=== PATIENT | male | born 1940 | race Caucasian/White ===

== ENCOUNTER 2023-05-22 02:53 | Inpatient (IN) | payer OTHER, SELFPAY ==
[2023-05-21 20:23] LABS: % Basophils 0.4 % (0-2); % Eosinophils 0.4 % (0-6); % Immature Granulocytes 0.3 % (0-0.5); % Lymphocytes 11.8 % (20.5-51.1); % Monocytes 7.9 % (1.7-9.3); % Neutrophils 79.2 % (42.2-75.2); Absolute Lymphocytes 1.1 10^3/uL (1.2-3.4); Absolute Monocytes 0.7 10^3/uL (0.1-0.6); Absolute Neutrophils 7.1 10^3/uL (1.4-6.5); Hematocrit 45.9 % (39.0-52.0); Hemoglobin 15.7 g/dL (13.0-18.0); Mean Corp Hgb Conc. 34.2 g/dL (33.0-37.0); Mean Corpuscular Hgb 31.9 pg (27.0-31.0); Mean Corpuscular Volume 93.3 fL (80.0-94.0); Mean Platelet Volume 9.8 fL (7.4-10.4); Nucleated Red Blood Cells % 0 % (-); Platelet Count 201 10^3/uL (130-400); Red Blood Cell Count 4.92 10^6/uL (4.70-6.10); Red Cell Dist. Width 13.6 % (11.5-14.5)
[2023-05-21 20:49] LABS: ALT (SGPT) 23 U/L (0-50); AST (SGOT) 39 U/L (17-59); Albumin 4.3 g/dl (3.5-5.0); Alkaline Phosphatase 93 U/L (38-126); Blood Urea Nitrogen 31 mg/dl (9-20); Calcium 9.2 mg/dl (8.4-10.2); Carbon Dioxide 26 mmol/L (22-30); Chloride 105 mmol/L (98-107); Glucose 136 mg/dl (70-99); Lipase 81 U/L (23-300); Potassium 3.9 mmol/L (3.5-5.1); Sodium 136 mmol/L (135-145); Total Bilirubin 1.2 mg/dl (0.2-1.3); Total Protein 7.5 g/dl (6.3-8.2); eGFR > 60.00
--- NOTE | 2023-05-21 22:32 | ED.GENMED ---
History of Present Illness
<TESFAYE Celaya - Last Filed: 05/22/23 00:03>
General
Chief Complaint: Abdominal Pain
Source: patient and family
Exam Limitations: none
Time Seen by Provider: 05/21/23 22:01
Nursing documentation reviewed up to this point in time: agreed with
Travel History
Have you had any contact with someone who has COVID-19?: No
Do you have any symptoms of coronavirus? Fever > 100 degrees, chills, cough, shortness of breath, sore throat, loss of taste or smell, muscle aches, or headache?: No
History of Present Illness
History of Present Illness:
This is an 82 year old male, with a history of CVA and SCC of the tongue, who presents to the ED c/o lower abdominal pain x 1 day. Pt states the pain started last night and has been worsening since. It is a constant, sharp pain mostly localized to
his lower abdomen. Pt states he drank Senna tea around 8 am this morning because he thought he was constipated, but he has not had a bowel movement yet. Pt states his last BM was yesterday morning and he described the stool as soft. He denies a
history of recurrent constipation. Pt also states he has had increasing nausea and he has had one episode of nonbloody emesis in the waiting room. He adds that his pain is starting to make him anxious. He denies any fever, chills, ENG,
lightheadedness, dizziness, CP, SOB, leg swelling, dysuria, or blood in his stool.
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 He denies any tobacco, alcohol, or drug use. He denies any abdominal surgeries or history of hernias.
Past History
<TESFAYE Celaya - Last Filed: 05/22/23 00:03>
Past History
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
ED Past Surgical History: Other (broken arm, tongue)
Patient has exhibited threatening behavior?: No
Social History
Tobacco: Non-smoker
Alcohol: None
Drug: None
Review of Systems
<Michaelmic TESFAYE Lynn - Last Filed: 05/22/23 00:03>
Review of Systems
Allergies reviewed?: Yes
Other source history: family
All Other Systems: ROS reviewed and negative except as documented in HPI and ROS
Constitutional: Reports no symptoms; Denies fever or chills
EENT: Reports no symptoms
Respiratory: Reports no symptoms; Denies trouble breathing
Cardiac: Reports no symptoms; Denies chest pain
ABD/GI: Reports abdominal pain, nausea, vomiting and constipated; Denies diarrhea or bloody stools
: Reports frequency; Denies dysuria
Musculoskeletal: Reports no symptoms; Denies edema
Skin: Reports no symptoms
Neurological: Reports no symptoms; Denies dizzy or headache
Psychiatric: Reports anxiety
Phy Exam
<TESFAYE Celaya - Last Filed: 05/22/23 00:03>
General Physical Exam
General Presentation: mild distress
General age: appears stated age
General Skin: warm and dry
General Habitus: elderly and frail
General Mental: alert
General Hydration: appears well hydrated
ENT Exam
ENT Exam: pharynx normal and normocephalic
Eye Exam
Eye Exam: PERRL and conjunctiva normal
Cardiovascular Exam
Cardiovascular Exam: regular rate/rhythm, no edema and no murmur
Heart Sounds: normal
Pulmonary Exam
Pulmonary Exam: lungs clear, no respiratory distress, no rales, no crackles, no rhonchi, no wheezing and no cough
Oxygen Status: room air
Cough: no cough
Gastrointestinal Exam
Gastrointestinal Exam: abnormal bowel sounds (hypoactive), distended and tender (mild mid to lower abdominal tenderness)
Auscultation of Abdomen: hypoactive
Neurological Exam
Neurological Exam: alert and oriented x3
Musculoskeletal Exam
Musculoskeletal Exam: full ROM and no edema
Skin Exam
Skin Exam: normal color and warm/dry
Psychiatric Exam
Psychiatric Exam: normal mood/affect
Course
<TESFAYE Celaya - Last Filed: 05/22/23 00:03>
Orders/Labs/Results
Orders:
Orders
05/21/23 20:01
IV Insert/Care/Rem.- Treatment PRN
05/21/23 20:16
Complete Blood Count/With Diff Urgent
Comprehensive Metabolic Panel Urgent
Lipase Urgent
05/21/23 22:57
Morphine Sulfate 4 mg IV NOW STA
Ondansetron Injectable [Zofran] 4 mg IV NOW STA
05/21/23 23:00
Urinalysis Reflex To Culture Urgent
Date Specimen was Collected: 05/21/23
Time Specimen was Collected: 20:01
05/22/23 00:00
CT Abd/pelvis W Iv Cont Stat
Reason For Exam: lower abd pain, distention
05/22/23 01:12
HYDROmorphone [Dilaudid] 0.5 mg .ROUTE .STK-MED ONE
05/22/23 01:16
Lactic Acid Stat
Urine Microscopic Reflex Cult Urgent
05/22/23 01:19
HYDROmorphone [Dilaudid] 0.5 mg IV NOW STA
05/22/23 01:39
Admit/Transfer Patient As Directed
Co-Sign Provider:
Level of Care: Inpatient admission
Assign to:: Medical/Surgical
Physician / Group: htay
Diagnosis: Acute sigmoid volvulus
Reason for Hospitalization: Acute sigmoid volvulus
Expected length of stay greater than two midnights?: Yes
ELOS- Estimated Length of Stay in days: 3
I certify the patient meets the requirements for IP care: Yes
05/22/23 01:40
Code Status As Directed
Resuscitation Status: Full Code
Abnormal Lab Results
05/21/23 05/22/23
20:16 01:16
MCH 31.9 H pg
(27.0-31.0)
Absolute Neuts (auto) 7.1 H 10^3/uL
(1.4-6.5)
Absolute Lymphs (auto) 1.1 L 10^3/uL
(1.2-3.4)
Absolute Monos (auto) 0.7 H 10^3/uL
(0.1-0.6)
Neutrophils % 79.2 H %
(42.2-75.2)
Lymphocytes % 11.8 L %
(20.5-51.1)
BUN 31 H mg/dl
(9-20)
Glucose 136 H mg/dl
(70-99)
Urine Ketones 2+ A
(Negative)
Ur Occult Blood Reflex 1+ A
(Negative)
Urine RBC 11-15 A /HPF
(0-2)
Urine Bacteria (Reflex) Few A
(Negative)
05/21/23 20:16
05/21/23 20:16
Vital Signs
Initial and Last Documented VS:
Initial Vital Signs
Temp Pulse Resp Pulse Ox
98.6 F 81 18 98
05/21/23 19:58 05/21/23 19:58 05/21/23 19:58 05/21/23 19:58
Last Documented Vital Signs
Temp Pulse Resp BP Pulse Ox
98.6 F 82 16 151/84 92
05/21/23 19:58 05/21/23 23:18 05/21/23 23:18 05/22/23 02:00 05/22/23 02:00
<Gray Rosas, DO - Last Filed: 05/22/23 02:04>
Orders/Labs/Results
Orders:
Orders
05/21/23 20:01
IV Insert/Care/Rem.- Treatment PRN
05/21/23 20:16
Complete Blood Count/With Diff Urgent
Comprehensive Metabolic Panel Urgent
Lipase Urgent
05/21/23 22:57
Morphine Sulfate 4 mg IV NOW STA
Ondansetron Injectable [Zofran] 4 mg IV NOW STA
05/21/23 23:00
Urinalysis Reflex To Culture Urgent
Date Specimen was Collected: 05/21/23
Time Specimen was Collected: 20:01
05/22/23 00:00
CT Abd/pelvis W Iv Cont Stat
Reason For Exam: lower abd pain, distention
05/22/23 01:12
HYDROmorphone [Dilaudid] 0.5 mg .ROUTE .STK-MED ONE
05/22/23 01:16
Lactic Acid Stat
Urine Microscopic Reflex Cult Urgent
05/22/23 01:19
HYDROmorphone [Dilaudid] 0.5 mg IV NOW STA
05/22/23 01:39
Admit/Transfer Patient As Directed
Co-Sign Provider:
Level of Care: Inpatient admission
Assign to:: Medical/Surgical
Physician / Group: htay
Diagnosis: Acute sigmoid volvulus
Reason for Hospitalization: Acute sigmoid volvulus
Expected length of stay greater than two midnights?: Yes
ELOS- Estimated Length of Stay in days: 3
I certify the patient meets the requirements for IP care: Yes
05/22/23 01:40
Code Status As Directed
Resuscitation Status: Full Code
Abnormal Lab Results
05/21/23 05/22/23
01:16
MCH 31.9 H pg
(27.0-31.0)
Absolute Neuts (auto) 7.1 H 10^3/uL
(1.4-6.5)
Absolute Lymphs (auto) 1.1 L 10^3/uL
(1.2-3.4)
Absolute Monos (auto) 0.7 H 10^3/uL
(0.1-0.6)
Neutrophils % 79.2 H %
(42.2-75.2)
Lymphocytes % 11.8 L %
(20.5-51.1)
BUN 31 H mg/dl
(9-20)
Glucose 136 H mg/dl
(70-99)
Urine Ketones 2+ A
(Negative)
Ur Occult Blood Reflex 1+ A
(Negative)
Urine RBC 11-15 A /HPF
(0-2)
Urine Bacteria (Reflex) Few A
(Negative)
05/21/23 20:16
05/21/23 20:16
Vital Signs
Initial and Last Documented VS:
Initial Vital Signs
Temp Pulse Resp Pulse Ox
98.6 F 81 18 98
05/21/23 19:58 05/21/23 19:58 05/21/23 19:58 05/21/23 19:58
Last Documented Vital Signs
Temp Pulse Resp BP Pulse Ox
98.6 F 82 16 151/84 92
05/21/23 19:58 05/21/23 23:18 05/21/23 23:18 05/22/23 02:00 05/22/23 02:00
<Gray Rosas, - Last Filed: 05/22/23 02:04>
MDM/Problems Addressed
Differential Diagnosis Includes:
AAA, colitis, ischemic colitis, diverticulitis, SBO, uti, constipation, large bowel obstruction
MDM/Problems Addressed:
Sigmoid volvulus
<Gray Rosas DO - Last Filed: 05/22/23 02:04>
*Radiology
Radiology exam reviewed: preliminary read by ED provider (Suspected volvulus, free fluid noted)
*Pulse Oximetry
Patient hypoxic: no
*Critical Care Note
Total Time (30-74mins, 75-104mins- exclusive of procedures): 60 minutes
Data Reviewed
Source: patient and family
Prescriptions/Medications Considered But Not Given:
Considered antibiotics but volvulus noted by CT
<Gray Rosas DO - Last Filed: 05/22/23 02:04>
Patient Management
Discussion with other providers: Hospitalist, Water Pollution Control Technician (Case discussed with Dr. Ceron), Radiologist (Case discussed with radiologist) and Other (Case discussed with gastroenterology)
Escalation/DeEscalation of care consider admission/obs:
Discussed with surgery who recommends endoscopic detorsion by gastroenterology. GI to take to lab. Patient does remain hemodynamically stable.
ED Attending Note
<TESFAYE Celaya - Last Filed: 05/22/23 00:03>
-
Portions of this chart may have been created with voice recognition software.� Occasional wrong word or��sound alike� substitutions may have occurred due to the inherent limitations of voice recognition software.
<Gray Rosas DO - Last Filed: 05/22/23 02:04>
ED Attending Note
Patient seen and examined by attending physician: Yes
I performed a history and physical exam of patient and discussed management with resident, I reviewed resident's note and agree with documented findings and plan of care.: Yes
ED Attending Note:
I performed a history and physical of the patient discussed management with the JAVAD student. I reviewed the student's note and agree with above.
82-year-old male who presents with abdominal pain and distention that began the night before presentation. Patient does report feeling constipated but has no history of constipation. He does feel bloated. His pain is severe and in the lower
abdomen. No fevers. Did exam: Abdomen distended. No bowel sounds. Moderate lower abdominal tenderness. Mild pain distress. No respiratory distress. No focal motor deficits. Assessment and plan: Check labs and CT. CT shows sigmoid volvulus.
Discharge Plan
Departure
Patient Disposition: Admit
Date of Disposition: 05/22/23
Time of Disposition: 01:01
Admit to: Med/Surg
Presentation/result/management discussed w/ accepting MD/DO: Hospitalist
Discharge Problem:
Sigmoid volvulus
Referrals:
Yves Berrios MD [Family Provider] -
Interventions
Interventions:
*Risk Screen - Suicide Last Done: 05/21/23 19:58
*General Assessment Last Done: 05/21/23 19:58
*Neglect/Abuse Screening Last Done: 05/21/23 19:58
*ED COVID-19 Vaccine History Last Done: 05/21/23 23:16
[id number] Assessment Last Done: 05/21/23 23:16
[2023-05-21] MEDS: MORPHINE SULFATE 4 MG IV (23:10)
[2023-05-21] MEDS: ZOFRAN 4 MG IV (23:10)
[2023-05-21 23:15] VITALS: BP 150/84
[2023-05-21 23:16] VITALS: BMI 18.0
[2023-05-22] VITALS (7 sets, daily range): BP systolic 126–157; BP diastolic 61–90; BMI 18.0
[2023-05-22] MEDS: DILAUDID 0.5 MG IV (01:20)
[2023-05-22 01:35] LABS: Urine Albumin Trace (Neg - Trace); Urine Bilirubin Negative (Negative); Urine Character Clear (Clear); Urine Color Amber; Urine Glucose Negative (Negative); Urine Ketone 2+ (Negative); Urine Leukocyte Negative (Negative); Urine Nitrite Negative (Negative); Urine Occult Blood 1+ (Negative); Urine Specific Gravity 1.025 (<1.030); Urine Urobilinogen Negative (Neg - 1+)
--- NOTE | 2023-05-22 01:36 | HPS.HSE ---
Family Physician
-
Family Physician: Yves Berrios
Chief Complaint
-
lower abdo pain
History of Present Illness
82M HX CVA and SCC of the tongue evalaution at ED for acute lower abdominal pain started last night and has been worsening since. It is a constant, sharp pain mostly localized to his lower abdomen. He has not had a bowel movement yet despite
senna. last BM was yesterday morning and he described the stool as soft. No HX of recurrent constipation.
Reports increasing nausea and one episode of nonbloody emesis in the waiting room.
ROS
Denies any fever, chills, ENG, lightheadedness, dizziness, CP, SOB, leg swelling, dysuria, or blood in his stool.
Medical History
Past Medical History
Past Medical History: Reports Other
Additional Past Medical History:
(squamous cell carcinoma of the tongue) and CVA
Past Surgical History: Reports Other
Additional Past Surgical History:
broken arm, tongue
Social History
Tobacco: Non-smoker
Alcohol: None
Drug: None
Family History
Family History: Not pertinent
Allergies / Home Medications
Allergies reflects when Allergies were last updated in [employer].
Home Medications with original date entered in [employer]
Allergy/Medication List:
Allergies
Allergy/AdvReac Type Severity Reaction Status Date / Time
NKA - No Known Allergies Allergy Uncoded 07/28/07 11:08
If medication reconciliation has not been performed, why?: Medication List N/A
Review of Systems
-
Constitutional: Reports No Symptoms
EENT: Reports No Symptoms
Respiratory: Reports No Symptoms
Cardiac: Reports No Symptoms
Abdomen/GI: Reports See HPI, Abdominal Pain, Nausea and Vomiting
: Reports No Symptoms
Musculoskeletal: Reports No Symptoms
Skin: Reports No Symptoms
Neurological: Reports No Symptoms
Endocrine: Reports No Symptoms
Hematologic/Lymphatic: Reports No Symptoms
Psych: Reports No Symptoms
Physical Exam
Vital Signs
Vital Signs
Temp Pulse Resp BP Pulse Ox
98.6 F 82 16 134/61 94
05/21/23 19:58 05/21/23 23:18 05/21/23 23:18 05/22/23 01:00 05/22/23 01:00
Physical Exam
General: Other (see below )
Laboratory Results
-
05/21/23 20:16
05/21/23 20:16
Laboratory Results
Total Bilirubin 1.2 mg/dl (0.2-1.3) 05/21/23 20:16
AST 39 U/L (17-59) 05/21/23 20:16
ALT 23 U/L (0-50) 05/21/23 20:16
Alkaline Phosphatase 93 U/L (38-126) 05/21/23 20:16
Lipase 81 U/L (23-300) 05/21/23 20:16
Data Reviewed
-
CT Scan: Report Reviewed by me
Lab Data: Labs Reviewed by me
Impression/Plan
-
Reviewed VS: unremarkable
PE
Gen: mild distress
HEENT: anicteric
Neck: supple
Lungs: CTA
Cor: RRR S1 S2
Abdomen: distended and tender lower abdomin and benign hypoactive BS
INDUSTRIAL CUSTODIAN: AAO3 NFND
MS: no edema
Psych: normal mood/affect
Data
Nl CBC
BUN 31
Nl Cr
eGFR
Pending LA
Pending UA
CT AP w IV contrast
Sigmoid volvulus
Abrupt narrowing & swirling of the distal sigmoid colon
Large volume ascites
No free air
Sigmoid colon distended up to 9 cm
Non obstructing renal calculi
Last hospitalist admission:
ASSESSMENT & PLAN
Acute sigmoid volvulus
Sigmoid colon distended up to 9 cm
Lareg volume ascites
- NPO and IVF
- PRN narcotic analgesia
- PRN anti emetics
- GI consulted - coming in for Flex sig decompression
- GS consulted
HX CVA
HX SCC of the tongue
DVT Px: SCd
Code: Full
IP MS
[2023-05-22 01:37] LABS: Lactic Acid 0.8 mmol/L (0.7-2.0)
[2023-05-22 01:51] LABS: Urine Squamous Cell >30 /LPF (Few)
[2023-05-22 01:52] LABS: Urine Amorphous Seen; Urine Mucus Few
[2023-05-22 01:53] LABS: Urine Bacteria Few (Negative)
--- NOTE | 2023-05-22 03:02 | CON.GI ---
Consultation
-
Date/Time Consultation Requested: 05/22/2023, 1:30am
Date/Time Consultation Performed: 05/22/2023, 2:45 am
Requesting Provider: Dr. Rosas
Performing Provider: Dr. Lopes
Reason for Consultation: volvulus
Medical History
Chief Complaint / HPI
Chief Complaint: abd pain
History of Present Illness:
82 yo M pmh tongue cancer, CVA p/w abd pain and bloating since pm. Last BM small AM. Never had this happen previously. Only on ASA 82 no NSAIDs.
Past Medical History
Past Medical History: Cancer (chemo/rad/surgery) and CVA
Past Surgical History: Other (tongue cancer)
Social History
Tobacco: Non-Smoker
Alcohol: None
Drug: None
Family History
Family History: Reviewed & Not Pertinent
Allergies / Home Medications
Allergy/AdvReac Type Severity Reaction Status Date / Time
NKA - No Known Allergies Allergy Uncoded 07/28/07 11:08
Review of Systems
-
All other systems: A 12 pt ROS was Negative except as stated above in HPI
Vital Signs
Temp Pulse Resp BP Pulse Ox
98.6 F 82 16 151/84 93
05/21/23 19:58 05/21/23 23:18 05/21/23 23:18 05/22/23 02:00 05/22/23 02:30
Physical Exam
Exam
General: Well Developed
HEENT: Normocephalic
Respiratory: Clear
Cardiac: S1/S2
GI: Tender and Distended
Psych: Calm
Results
WBC 9.0 10^3/uL (4.8-10.8) 05/21/23 20:16
Hgb 15.7 g/dL (13.0-18.0) 05/21/23 20:16
Hct 45.9 % (39.0-52.0) 05/21/23 20:16
MCV 93.3 fL (80.0-94.0) 05/21/23 20:16
Plt Count 201 10^3/uL (130-400) 05/21/23 20:16
Absolute Neuts (auto) 7.1 10^3/uL (1.4-6.5) H 05/21/23 20:16
Sodium 136 mmol/L (135-145) 05/21/23 20:16
Potassium 3.9 mmol/L (3.5-5.1) 05/21/23 20:16
Chloride 105 mmol/L (98-107) 05/21/23 20:16
Carbon Dioxide 26 mmol/L (22-30) 05/21/23 20:16
BUN 31 mg/dl (9-20) H 05/21/23 20:16
Creatinine 0.8 mg/dL (0.7-1.3) 05/21/23 20:16
Calcium 9.2 mg/dl (8.4-10.2) 05/21/23 20:16
Total Bilirubin 1.2 mg/dl (0.2-1.3) 05/21/23 20:16
AST 39 U/L (17-59) 05/21/23 20:16
ALT 23 U/L (0-50) 05/21/23 20:16
Alkaline Phosphatase 93 U/L (38-126) 05/21/23 20:16
Lipase 81 U/L (23-300) 05/21/23 20:16
Diagnostic Image Results: CT night hawk read sigmoid volvulus and swirling of distal sigmoid colon with closely adjacent segment of proximal sigmoid colon with narrowing and distension. Intervening sigmoid colon dilated up to 7.8 cm. Large
ascites. Limited sensitivity for wall enhancement. Proximal sigmoid distended up to 9 cm.
I personally read and interpreted images as well
Prior GI Procedures:
EGD:
Colonoscopy:
Assessment / Plan
-
82 yo M pmh tongue Ca, CVA here with abd pain, distension found to have sigmoid volvulus on CT. Lactate normal.
I discussed with er physician Dr. Rosas and surgery Dr. Ceron.
No peritonitis, CT no advanced ischemia/pneumatosis.
Plan for attempted endoscopic detorsion with likely sigmoid resection in a few days; if unable to detorse would need to go to OR for ostomy and resection.
D/w pt and r/a/b of flex sig/cscope including increased risk of perforation given colonic distension. Agreeable to procedure.
Procedure note to follow with recommendations.
-
-
Thank you for consultation and allowing me to participate in the patient's care. Please call the rn lactation consultant GI physician during the after hours with any questions or concerns.
[2023-05-22] MEDS: NSS 1000 IV ×2 (04:38→15:50)
[2023-05-22 07:08] LABS: Hematocrit 43.4 % (39.0-52.0); Hemoglobin 14.7 g/dL (13.0-18.0); Mean Corp Hgb Conc. 33.9 g/dL (33.0-37.0); Mean Corpuscular Hgb 31.7 pg (27.0-31.0); Mean Corpuscular Volume 93.5 fL (80.0-94.0); Platelet Count 190 10^3/uL (130-400); Red Blood Cell Count 4.64 10^6/uL (4.70-6.10); Red Cell Dist. Width 13.7 % (11.5-14.5); White Blood Cell Count 9.3 10^3/uL (4.8-10.8)
[2023-05-22 07:32] LABS: Blood Urea Nitrogen 29 mg/dl (9-20); Calcium 8.4 mg/dl (8.4-10.2); Carbon Dioxide 28 mmol/L (22-30); Chloride 106 mmol/L (98-107); Estimated Creatinine Clearance 76 ml/min; Glucose 124 mg/dl (70-99); Potassium 4.1 mmol/L (3.5-5.1); Sodium 137 mmol/L (135-145); eGFR > 60.00
--- NOTE | 2023-05-22 08:23 | W.PN.UPDATE ---
Update Note
Progress Note Update
Patient seen and examined after post midnight admission. Patient presented with abdominal pain and was found to have acute sigmoid volvulus. He senses had sigmoidoscopy and partial decompression was achieved. Melanosis was noted in the colon.
Rectal tube was placed. Currently patient denies any abdominal pain. He has no other acute complaints.
126/73, 92, 17, 98.5 �F, 95% on room air
No acute distress, awake and alert, appears chronically ill malnourished
Regular rate and rhythm, normal S1-S2
Clear to auscultation bilaterally
Positive bowel sounds, soft, nontender, nondistended
Cranial nerves II to XII are intact
WBC 9.3, hemoglobin 14.7, platelet 190
Creatinine 0.7
Acute sigmoid volvulus:
-Status post decompression as above
-Case discussed in person with Dr. Ceron. Patient is deciding about surgery at this time. For now maintain rectal tube, clear liquid diet.
--- NOTE | 2023-05-22 08:39 | CON.GS ---
Addendum entered and electronically signed by Theron Callaway MD 05/22/23 09:32:
Patient seen and examined with surgical BRIQUETTE OPERATOR. Agree with documented consultation which is consistent with my simultaneous examination and evaluation.
HPI: 82-year-old male who presented with a few day history of obstipation and was found to have sigmoid volvulus on CT imaging. He underwent urgent flexible sigmoidoscopy with successful decompression overnight. Rectal tube remains in place. He
states that his abdominal pain has been completely relieved. He reports no lingering abdominal distention. He has not passed anything since rectal tube placed. He is thirsty/hungry. Denies any nausea or vomiting.
He states that he usually does not have any regular problems with constipation only on an occasional basis. No similar episodes like this in the past that he is aware of.
Only past abdominal surgical history is having a open G-tube placed when he was being treated for his base of the tongue cancer.
AFVSS
NAD AAOx3
ABD: Soft, nondistended, no tenderness on palpation, no rebound rigidity or guarding
CT abdomen/pelvis imaging personally reviewed consistent with sigmoid volvulus. No pneumatosis. There is some ascites/free fluid. No free air.
Assessment/plan: 82-year-old male postprocedural day 0 status post endoscopic decompression/detorsion of acute sigmoid volvulus
No peritoneal signs, no clinical signs of colonic ischemia or compromise.
Lengthy discussions with patient reviewing typical natural history of sigmoid volvulus. We discussed recommendation for sigmoidectomy at index presentation as 80+ percent of patients will develop recurrent sigmoid volvulus after successful
detorsion. This may occur at this hospitalization or at any point after discharge. The operative procedure would be sigmoidectomy with anastomosis as long as able to bowel prep Mr. Odonnell for surgery. He would like to further contemplate before
giving consideration to surgery. He readily states that he is leaning towards nonoperative management even voicing understanding of the very high recurrence risk. We further discussed that if he was to have recurrence unable to be treated
endoscopically or in the situation of secondary perforation/ischemia he would require emergency surgery with a colostomy bag and would be a much more higher risk for morbidity/mortality.
Okay for clear liquid diet today
Maintain rectal tube for decompression today
Await patient decision regarding consideration of sigmoidectomy at this index hospitalization.
Original Note:
Consultation
-
Date/Time Consultation Requested: 05/22/23 0433
Requesting Provider: kamilla
Performing Provider: kylee callaway
Reason for Consultation: Acute sigmoid volvulus
Medical History
-
Chief Complaint: abdominal pain
History of Present Illness:
This is an 82 yo male with a history of SCC of the tongue s/p resection, cva and prior surgically placed feeding tube (removed) who presented with severe abdominal pain and bloating. He was unable to pass a BM for the last 2 days and took smooth
move tea at home without relief. He denies chronic constipation or similar symptoms in the past. He had nausea with one episode of vomiting in the ED. CT imaging was consistent with sigmoid volvulus and he was taken emergently for sigmoidoscopy for
decompression with placement of rectal tube. He is currently pain free after the procedure with resolution of nausea as well. He has not had a BM since the procedure.
Past Medical History
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
Past Surgical History: Orthopedic (Arm) and Other (Prior feeding tube, ENT surgery for tongue CA)
Social History
Tobacco: Non-Smoker
Alcohol: None
Family History
Family History: Reviewed & Not Pertinent
Allergies / Home Medications
Allergy/AdvReac Type Severity Reaction Status Date / Time
NKA - No Known Allergies Allergy Uncoded 07/28/07 11:08
Medication Instructions Recorded Confirmed Type
aspirin 81 mg tablet 81 mg PO DAILY 05/22/23 05/22/23 History
atorvastatin 40 mg tablet 40 mg PO DAILY 05/22/23 05/22/23 History
Review of Systems
-
History Source: Patient
All other systems: Negative unless noted
A 10 point review of systems was completed, and was negative except as per HPI.
Physical Exam
Vital Signs
Temp Pulse Resp BP Pulse Ox
98.5 F 92 17 126/73 95
05/22/23 07:00 05/22/23 07:00 05/22/23 07:00 05/22/23 07:00 05/22/23 07:00
05/21/23 05/22/23 05/23/23
06:59 06:59 06:59
Actual Weight 65.2 kg
Body Mass Index (BMI) 18.0
Lab Results
05/22/23 06:53
05/22/23 06:53
WBC 9.3 10^3/uL (4.8-10.8) 05/22/23 06:53
Hgb 14.7 g/dL (13.0-18.0) 05/22/23 06:53
Hct 43.4 % (39.0-52.0) 05/22/23 06:53
Plt Count 190 10^3/uL (130-400) 05/22/23 06:53
Abs Immat Gran (auto) 0.0 10^3/uL (0-0.05) 05/21/23 20:16
Neutrophils % 79.2 % (42.2-75.2) H 05/21/23 20:16
Physical Exam
General: Comfortable and Other (Thin)
HEENT: Normocephalic, Moist Mucous Membranes and Other (LUMBEE)
Respiratory: Non Labored Respirations
GI: Soft, Non Tender, Non Distended and Other (rectal tube without output)
Skin: Warm and Dry
Neuro: Awake, Alert and AO x 3
Psych: Calm
Data Reviewed
-
CT Scan: Image Personally Visualized and interpreted, Report Reviewed by me, Discussed with Physician and Discussed with Patient
Labs: Labs Reviewed by me, Discussed with Physician, Discussed with Patient and Discussed with Family
Assessment / Plan
-
82 yo male with h/o SCC of tongue s/p revision and cva who presents with sigmoid volvulus s/p decompression with sigmoidoscopy overnight with GI. Discussed high risk of recurrence with patient.
Currently AFVSS with stable labs
Plan:
Recommend surgical resection of the sigmoid colon this admission given high risk of recurrence, patient is considering this.
Start clear liquids and follow for tolerance
Continue rectal tube
If patient opts to proceed with surgery, tentative bowel prep on Wednesday if tolerating clears with OR on Wednesday, otherwise will continue with diet advancement
Medical care as per primary team
--- NOTE | 2023-05-22 15:45 | PTCARENOTE ---
pt rectal decompression tube fell out, reported by pt. Zena Acosta FMD TEACHER notified via tt. plan to leave out for now since pt reports feeling okay.
[2023-05-23] MEDS: NSS 1000 IV (03:45)
[2023-05-23 06:00] VITALS: BMI 18.1
[2023-05-23 07:57] VITALS: BP 150/95
[2023-05-23 08:58] LABS: % Basophils 0.2 % (0-2); % Eosinophils 1.5 % (0-6); % Immature Granulocytes 0.4 % (0-0.5); % Lymphocytes 14.3 % (20.5-51.1); % Neutrophils 72.6 % (42.2-75.2); Absolute Eosinophils 0.1 10^3/uL (0-0.7); Absolute Lymphocytes 1.2 10^3/uL (1.2-3.4); Absolute Monocytes 0.9 10^3/uL (0.1-0.6); Absolute Neutrophils 6.1 10^3/uL (1.4-6.5); Hematocrit 43.2 % (39.0-52.0); Hemoglobin 14.6 g/dL (13.0-18.0); Mean Corp Hgb Conc. 33.8 g/dL (33.0-37.0); Mean Corpuscular Hgb 32.5 pg (27.0-31.0); Mean Corpuscular Volume 96.2 fL (80.0-94.0); Nucleated Red Blood Cells % 0 % (-); Platelet Count 173 10^3/uL (130-400); Red Blood Cell Count 4.49 10^6/uL (4.70-6.10); Red Cell Dist. Width 13.6 % (11.5-14.5); White Blood Cell Count 8.4 10^3/uL (4.8-10.8)
[2023-05-23 09:14] LABS: Blood Urea Nitrogen 27 mg/dl (9-20); Calcium 8.3 mg/dl (8.4-10.2); Carbon Dioxide 30 mmol/L (22-30); Chloride 107 mmol/L (98-107); Estimated Creatinine Clearance 67 ml/min; Glucose 114 mg/dl (70-99); Potassium 3.6 mmol/L (3.5-5.1); Sodium 138 mmol/L (135-145); eGFR > 60.00
--- NOTE | 2023-05-23 10:49 | W.PN.HOSP.TC ---
Today's Communication/Plan
-
Monitor vitals
See plan
tolerating clears, does not want any operative management. Spoke with surgery who advanced diet
dc with surgery f/u
time of discharge 36minutes
Assessment / Plan
Assessment / Plan
Acute sigmoid volvulus
Sigmoid colon distended up to 9 cm
Lareg volume ascites
Status post decompression. Patient is currently tolerating clears. Refusing surgery. He wants to try nonoperative management. Surgery discussed patient with repeated risk including secondary perforation/ischemia. Spoke with surgery again today
and they are okay with patient being discharged with outpatient follow-up.
- PRN narcotic analgesia
- PRN anti emetics
-Gi following
sugery following
HX CVA
HX SCC of the tongue
DVT Px: SCd
Code: Full
Gen: no distress
HEENT: anicteric
Neck: supple
Lungs: CTA
Cor: RRR S1 S2
Abdomen: non tender
PRESSROOM FOREMAN: AAOX3, non focal
MS: no edema
Psych:� normal mood/affect
Anticipated Discharge: Today
Subjective/Interval History
-
Date of Service: May 23, 2023
Denies abdominal pain
Objective Data
-
Labs:
Laboratory Results
05/23/23
08:43
WBC 8.4
Hgb 14.6
Hct 43.2
Plt Count 173
Sodium 138
Potassium 3.6
Chloride 107
Carbon Dioxide 30
BUN 27 H
Creatinine 0.8
Glucose 114 H
Calcium 8.3 L
Vital Signs:
Vital Signs
Temp Pulse Resp BP Pulse Ox
97.5 F 87 18 150/95 97
05/23/23 07:57 05/23/23 07:57 05/23/23 07:57 05/23/23 07:57 05/23/23 07:57
I&O
05/22/23 05/23/23 05/24/23
06:59 06:59 06:59
Intake Total 300 / 300 2160 / 2160
Output Total 400 / 400 200 / 200
Balance -100 / -100 1959 / 1959
--- NOTE | 2023-05-23 10:54 | W.DCSUMMARY ---
Discharge Summary
Discharge Data
Date of Admission: 05/22/23
Date of Discharge: 05/23/23
-
Pending Results: No
Hospital Course
82-year-old male with past medical history of CVA, squamous cell carcinoma of the tongue came to the hospital with abdominal pain known to have acute sigmoid volvulus. Patient was seen by GI urgently for flex sig decompression. Patient was also
seen by surgery who recommended patient to have operative management with sigmoidectomy however patient refused. Patient decompression improved with rectal tube. Patient was able to tolerate clear liquid diet. Since patient continued to refuse
operative management, surgery then advanced patient diet and instructed patient to follow-up with them outpatient. Patient understood the risk of recurrence with possible worsening symptoms without surgical management. Since patient refused
surgical management, he was then discharged home with instructions to follow-up closely with surgery outpatient.
Discharge Plan
-
Patient Disposition: Home (Routine Discharge)
Discharge Diagnosis/Procedures: Acute sigmoid volvulus status post decompression
Diet: As tolerated
Activity: As tolerated
Driving Restrictions: As prior to admission
Bathing Restrictions: None
Referrals:
Yves Berrios MD [Family Provider] - in less than 1 week
Theron Ceron MD [Active] -
Prescriptions:
Continued
atorvastatin 40 mg Tablet
40 mg PO DAILY
aspirin 81 mg Tablet
81 mg PO DAILY
Discharge Orders:
Discharge Patient (As Directed); Ordered 05/23/23
Ordered By: Reid Butler
Discharge Date and Time
Discharge Date/Time: 05/23/23 14:09
--- NOTE | 2023-05-23 11:32 | W.PN.GS2 ---
Addendum entered and electronically signed by Theron Ceron MD 05/23/23 11:49:
Patient seen and examined with nurse practitioner. Agree with documented progress note as outlined below.
Patient feels great, had a bowel movement today. Tolerating clears.
Voices a clear understanding of underlying pathophysiology of sigmoid volvulus. He quotes risk of recurrence at 80% or greater without my prompting. States that he has done his own research during his hospitalization.
In the setting Mr. Odonnell would like to forego on consideration of definitive treatment with sigmoidectomy as is medically recommended to prevent future recurrence. He has been counseled regarding risk for future events to be more emergent in
nature, potentially life-threatening, potentially require surgery for ischemia or perforation requiring ostomy. He is cautiously optimistic he may be one of the few who do not get a recurrence and 'he would like to keep his sigmoid colon'.
Mr. Odonnell may therefore be discharged. Continue with a bowel regiment although this has no impact on future recurrence risk.
Provided him with my contact information if he would like further discussions as an outpatient were he to change his mind, sigmoidectomy can be reconsidered
Original Note:
Today's Communication / Plan
-
Regular diet
Dispo planning
Assessment / Plan
-
82 yo male presenting with few day history of obstipation and sigmoid volvulus on CT imaging. Urgent flexible sigmoidoscopy yesterday with successful decompression.
Tolerating PO intake with BM this am. Rectal tube out since yesterday pm.
Patient has considered recommendation for surgical sigmoid resection to prevent recurrence and is currently declining surgical intervention. He is able to verbalize understanding of the high risk of recurrence and symptoms necessitating return to
the ER. Information given to patient for follow up appointment should he choose to pursue surgery at a later date.
Clear for discharge from surgical standpoint
Subjective Data
-
Date of Service: May 23, 2023
Patient seen and examined at bedside with Dr. Ceron. OOB to chair. Reports no complaints. Passed a BM this am.
Objective Data
-
Intake and Output
05/22/23 05/23/23 05/24/23
06:59 06:59 06:59
Intake Total 300 / 300 2160 / 2160
Output Total 400 / 400 200 / 200
Balance -100 / -100 1960 / 1960
Intake:
Oral fluids 960 / 960
IV fluids (Total) 300 / 300 1200 / 1200
Output:
Urine, Voided 400 / 400 200 / 200
Other:
Number of approximated SMALL 1
amounts of urine
Number of approximated MODERATE 1
amounts of urine
Vital Signs
Temp Pulse Resp BP Pulse Ox
97.5 F 87 18 150/95 97
05/23/23 07:57 05/23/23 07:57 05/23/23 07:57 05/23/23 07:57 05/23/23 07:57
Lab Results
05/23/23 08:43
05/23/23 08:43
Calcium 8.3 mg/dl (8.4-10.2) L 05/23/23 08:43
Total Bilirubin 1.2 mg/dl (0.2-1.3) 05/21/23 20:16
AST 39 U/L (17-59) 05/21/23 20:16
ALT 23 U/L (0-50) 05/21/23 20:16
Alkaline Phosphatase 93 U/L (38-126) 05/21/23 20:16
Total Protein 7.5 g/dl (6.3-8.2) 05/21/23 20:16
Albumin 4.3 g/dl (3.5-5.0) 05/21/23 20:16
Physical Exam
-
NAD
ABD soft, nt, nd
--- NOTE | 2023-05-23 11:59 | CM ---
logistics project manager reviewed patient's chart and met with patient and patient lives with his spouse is independent with adl's and ambulation, drives, has a prescription plan and uses [facility] pharmacy.
PCP: Dr. Berrios
Plan; Home with spouse no needs.
--- NOTE | 2023-05-23 12:44 | W.PN.GI.CBS2 ---
Today's Communication / Plan
-
pt being discharged
Assessment / Plan
-
82 yo M pmh tongue Ca, CVA here with abd pain, distension found to have sigmoid volvulus on CT. s/p endoscopic decompression with rectal tube.
I again reinforced with Dr. Ceron reviewed with the patient that there is an 80% chance of recurrence. There is a risk he may need emergent surgery if it were to recur and can be dangerous. Patient would like to think about it I will reach out
to Dr. Ceron's office if he changes his mind in the future.
Patient is being discharged, gi will sign off.
Subjective
Subjective
Date of Service: May 23, 2023
feels well, back to normal, eating
Objective
Data Reviewed
Laboratory Data:
Laboratory Results
05/23/23 08:43
05/23/23 08:43
Laboratory Results
Total Bilirubin 1.2 mg/dl (0.2-1.3) 05/21/23 20:16
AST 39 U/L (17-59) 05/21/23 20:16
ALT 23 U/L (0-50) 05/21/23 20:16
Alkaline Phosphatase 93 U/L (38-126) 05/21/23 20:16
Lipase 81 U/L (23-300) 05/21/23 20:16
Vital Signs and I&O:
Vital Signs
Temp Pulse Resp BP Pulse Ox
97.5 F 87 18 150/95 97
05/23/23 07:57 05/23/23 07:57 05/23/23 07:57 05/23/23 07:57 05/23/23 07:57
I&O
05/22/23 05/23/23 05/24/23
06:59 06:59 06:59
Intake Total 300 / 300 2160 / 2160
Output Total 400 / 400 200 / 200
Balance -100 / -100 1959
Physical Exam
Physical Exam
GI: Non Distended and Non Tender
== END 2023-05-23 14:09 | disposition home or self-care (01) | DRG 345 ==
LOC: 3 WEST ACU 02:53
PROVIDERS: Emergency Medicine; ADMITTING PHYSICIAN Internal Medicine; ATTENDING PHYSICIAN Internal Medicine; CONSULT PHYSICIAN Internal Medicine Gastroenterology; CONSULT PHYSICIAN Surgery; EMERGENCY PHYSICIAN Emergency Medicine; FAMILY PHYSICIAN Family Medicine
PROC: 0DJD8ZZ Inspection of Lower Intestinal Tract, Via Natural or Artificial Opening Endoscopic (ICD-10-PCS; 2023-05-22)
PROC: 0D9N8ZZ Drainage of Sigmoid Colon, Via Natural or Artificial Opening Endoscopic (ICD-10-PCS; 2023-05-22)
DX: K56.2 Volvulus (principal); K59.39 Other megacolon; R18.8 Other ascites; K63.89 Other specified diseases of intestine
CPT/HCPCS: 74177; 80048; 80053; 81003; 81015; 83605; 83690; 85025; 85027; 96374; 96375; 99291; Q9967

== ENCOUNTER 2023-12-01 20:07 | Inpatient (IN) | payer OTHER, SELFPAY ==
[2023-12-01] VITALS (8 sets, daily range): BP systolic 148–190; BP diastolic 71–150; BMI 18.5
--- NOTE | 2023-12-01 15:58 | ED.PDOC.TRB ---
ED Provider Triage
-
Patient seen by provider in Triage?: Seen in Triage
A medical screening examination has been initiated by a qualified medical provider. Based on the assessment performed at this time, it has been determined that an emergent medical condition may exist and the patient has been informed that further
medical evaluation and possible additional diagnostic testing may be needed.
HPI: This is a medical evaluation conducted in person to initiate diagnostic evaluation and provide initial therapeutics. Please see further documentation by the treating clinician.
GENERAL: Alert ,tearful
EYE: No visual abnormalities.
NECK: Trachea midline
ENT: No visible abnormalities.
LUNGS: No acute respiratory distress
NEUROLOGICAL: Alert and oriented
Abdomen: Vague diffuse abdominal pain
SKIN: no visible lesions.
MUSCULOSKELETAL: Moving extremities normally
PSYCH: Normal and appropriate interaction.
83-year-old male presenting to the emergency department with diffuse abdominal pain over the past day or 2. Similar symptoms in the past when he had a sigmoid volvulus. Patient appears uncomfortable here plan for CT scan for further assessment as
well as labs.
[2023-12-01] MEDS: OMNIPAQUE 50 ML PO (16:00)
[2023-12-01 16:18] LABS: % Basophils 0.3 % (0-2); % Eosinophils 0.5 % (0-6); % Immature Granulocytes 0.2 % (0-0.5); % Lymphocytes 22.5 % (20.5-51.1); % Monocytes 12.3 % (1.7-9.3); % Neutrophils 64.2 % (42.2-75.2); Absolute Lymphocytes 1.4 10^3/uL (1.2-3.4); Absolute Monocytes 0.7 10^3/uL (0.1-0.6); Absolute Neutrophils 3.9 10^3/uL (1.4-6.5); Hematocrit 42.5 % (39.0-52.0); Hemoglobin 14.7 g/dL (13.0-18.0); Mean Corp Hgb Conc. 34.6 g/dL (33.0-37.0); Mean Corpuscular Volume 92.6 fL (80.0-94.0); Mean Platelet Volume 10.2 fL (7.4-10.4); Nucleated Red Blood Cells % 0 % (-); Platelet Count 201 10^3/uL (130-400); Red Blood Cell Count 4.59 10^6/uL (4.70-6.10); Red Cell Dist. Width 13.9 % (11.5-14.5)
[2023-12-01 16:36] LABS: ALT (SGPT) 21 U/L (0-50); AST (SGOT) 35 U/L (17-59); Albumin 4.6 g/dl (3.5-5.0); Alkaline Phosphatase 71 U/L (38-126); Blood Urea Nitrogen 26 mg/dl (9-20); Calcium 9.3 mg/dl (8.4-10.2); Carbon Dioxide 30 mmol/L (22-30); Chloride 103 mmol/L (98-107); Estimated Creatinine Clearance 68 ml/min; Glucose 110 mg/dl (70-99); Potassium 4.2 mmol/L (3.5-5.1); Sodium 141 mmol/L (135-145); Total Bilirubin 1.2 mg/dl (0.2-1.3); Total Protein 7.2 g/dl (6.3-8.2); eGFR > 60.00
[2023-12-01 16:37] LABS: Lipase 234 U/L (23-300)
--- NOTE | 2023-12-01 16:53 | ED.GENMED ---
History of Present Illness
General
Chief Complaint: Abdominal Pain
Source: patient
Exam Limitations: none
Time Seen by Provider: 12/01/23 16:40
Nursing documentation reviewed up to this point in time: agreed with
History of Present Illness
History of Present Illness:
83 yr old male presents to the ED for evaluation. Patient has a history of CVA squamous of carcinoma of tongue history of a sigmoid volvulus (had flexible sigmoidoscopy with decompression ). patient presents to the ER complaining of intense lower
abdominal pain that started last night and has persisted. He reports this does feel similar to his sigmoid volvulus in the past. He moved his bowels yesterday but not today. Has not eaten today. He did drink 1 cup of contrast in the waiting room
but cannot refuses to drink another cup.
He does feel little nausea denies any urinary frequency urgency dysuria. Denies any fever chills.
Past History
Past History
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
ED Past Surgical History: Other (broken arm, tongue)
Patient has exhibited threatening behavior?: No
Social History
Tobacco: Non-smoker
Alcohol: None
Drug: None
Review of Systems
Review of Systems
Allergies reviewed?: Yes
All Other Systems: ROS reviewed and negative except as documented in HPI and ROS
Constitutional: Reports no symptoms; Denies fever, fatigue or chills
Cardiac: Reports no symptoms
ABD/GI: Reports abdominal pain and nausea; Denies vomiting
: Reports no symptoms
Musculoskeletal: Reports no symptoms
Skin: Reports no symptoms
Neurological: Reports no symptoms
Psychiatric: Reports no symptoms
Phy Exam
General Physical Exam
General Presentation: no apparent distress
General age: appears stated age
General Skin: warm and dry
General Habitus: normal
General Mental: alert
General Hydration: appears well hydrated
Gastrointestinal Exam
Gastrointestinal Exam: soft and other (lower abd pain tender throughout lower abd region very tender on exam )
Neurological Exam
Neurological Exam: alert and oriented x3
Musculoskeletal Exam
Musculoskeletal Exam: full ROM
Skin Exam
Skin Exam: normal color and warm/dry
Psychiatric Exam
Psychiatric Exam: normal mood/affect
Course
Orders/Labs/Results
Orders:
Orders
12/01/23 15:57
Urinalysis Reflex To Culture Urgent
12/01/23 15:59
Iohexol [Omnipaque] See Protocol PO NOW STA
12/01/23 16:03
Complete Blood Count/With Diff Urgent
Comprehensive Metabolic Panel Urgent
Lactic Acid Urgent
Lipase Urgent
12/01/23 17:06
CT Abd/pel W Iv And Oral Contr Urgent
Reason For Exam: lower abd pain hx of sigmoid volvulus
Vital Signs- Treatment ONCE
Frequency: Once
Morphine Sulfate 4 mg IV NOW STA
Ondansetron Injectable [Zofran] 4 mg IV NOW STA
12/01/23 18:34
0.9% Sodium Chloride 1000 ml [Nss] 1,000 ml IV BOLUS
HYDROmorphone [Dilaudid] 0.5 mg IV NOW STA
12/01/23 19:49
Admit/Transfer Patient As Directed
Co-Sign Provider:
Level of Care: Inpatient admission
Assign to:: Medical/Surgical
Physician / Group: kane
Diagnosis: acute sigmoid volvulus
Reason for Hospitalization: acute sigmoid volvulus
Expected length of stay greater than two midnights?: Yes
ELOS- Estimated Length of Stay in days: 2
I certify the patient meets the requirements for IP care: Yes
Code Status As Directed
Resuscitation Status: Full Code
PRN Pain Medication Management As Directed
May give lesser potent ordered pain med per pt: Yes
preference::
Protocol:: Medication orders for pain may be administered in a
manner that supports deferring to patient preference
when the pt is:
- Requesting an ordered lesser potent pain medication.
Least to most potent pain medications are defined
as: acetaminophen < NSAID < tramadol < opioids
(morphine, oxycodone, hydromorphone).
- Requesting a lesser dose of the same medication IF
ORDERED.
- Requesting a less intrusive route of administration
if both routes are prescribed by the provider (PO <
IV).
Abnormal Lab Results
12/01/23
16:03
RBC 4.59 L 10^6/uL
(4.70-6.10)
MCH 32.0 H pg
(27.0-31.0)
Absolute Monos (auto) 0.7 H 10^3/uL
(0.1-0.6)
Monocytes % 12.3 H %
(1.7-9.3)
BUN 26 H mg/dl
(9-20)
Glucose 110 H mg/dl
(70-99)
12/01/23 16:03
12/01/23 16:03
Vital Signs
Initial and Last Documented VS:
Initial Vital Signs
Temp Pulse Resp BP Pulse Ox
98.2 F 80 20 190/150 95
12/01/23 15:56 12/01/23 15:56 12/01/23 15:56 12/01/23 15:56 12/01/23 15:56
Last Documented Vital Signs
Temp Pulse Resp BP Pulse Ox
98.2 F 77 13 153/90 97
12/01/23 15:56 12/01/23 21:15 12/01/23 21:15 12/01/23 21:00 12/01/23 17:30
MDM/Problems Addressed
Differential Diagnosis Includes:
Not limited to sigmoid volvulus bowel obstruction
MDM/Problems Addressed:
Patient is an 83-year-old male with history of sigmoid volvulus presents to the ER with lower abdominal pain last night. He is very uncomfortable on exam. He is hypertensive nontachycardic nonfebrile normal white count stable hemoglobin. Patient
was triaged and drank 1 cup of oral contrast he does not feel that he can drink additional cup. Patient was given morphine fluids nausea medicine I spoke with radiology will order CT with IV contrast only.
1849: Call received from radiology. Patient has again a sigmoid volvulus with a sigmoid measuring up to 7.9 cm there is associated distention colonic distention most pronounced of the ascending colon consistent with known distal obstruction. GI
/Gen Surg notified via tiger text . DR Garces does recommend to notify colorectal as this is recurring and will need surgery. Via [place] text Dr. Kam was notified he has tending to an ICU patient now will get back to me. Patient admitted to the
hospital service. Patient has been treated with fluids and pain medication
*Radiology
Radiology exam reviewed: radiology read reviewed
*Pulse Oximetry
Patient hypoxic: no
*Critical Care Note
Total Time (30-74mins, 75-104mins- exclusive of procedures): Not Applicable
ED Attending Note
-
Portions of this chart may have been created with voice recognition software.� Occasional wrong word or��sound alike� substitutions may have occurred due to the inherent limitations of voice recognition software.
Discharge Plan
Departure
Patient Disposition: Admit
Date of Disposition: 12/01/23
Time of Disposition: 19:34
Admit to: ICU
Admit to doctor: hospitalist
Presentation/result/management discussed w/ accepting MD/DO: Hospitalist
Patient with high blood pressure during this ER visit?: Yes
Condition: Fair
Covid-19: Not Applicable
Discharge Problem:
Sigmoid volvulus
Interventions
Interventions:
*Risk Screen - Suicide Last Done: 12/01/23 15:56
*General Assessment Last Done: 12/01/23 15:56
*Neglect/Abuse Screening Last Done: 12/01/23 15:56
ED- Fall Risk Assessment Last Done: 12/01/23 16:08
*ED COVID-19 Vaccine History Last Done: 12/01/23 17:10
*Nursing Disposition Last Done: 12/01/23 21:19
SL-Uaqced-Sszfruajgf Assessment Last Done: 12/01/23 16:08
Discharge Date and Time
Discharge Date/Time: 12/01/23 21:20
[2023-12-01] MEDS: ZOFRAN 4 MG IV (17:12)
[2023-12-01] MEDS: MORPHINE SULFATE 4 MG IV (17:12)
[2023-12-01] MEDS: NSS 1000 IV (18:38)
[2023-12-01] MEDS: DILAUDID 0.5 MG IV (18:38)
--- NOTE | 2023-12-01 19:53 | HPS.HSE ---
Family Physician
-
Family Physician: Yves Berrios
Chief Complaint
-
abdominal pain
History of Present Illness
83-year-old male past medical history of sigmoid volvulus, CVA, squamous of carcinoma of tongue, hearing loss, presenting with severe lower abdominal pain that started last night and has persisted. This feels similar to when he had sigmoid volvulus
this past May. He had bowel movement yesterday but not today. He did not eat today. He has some nausea but denies any urinary symptoms. Denies any fevers or chills.
Patient was recently admitted in May of this year for acute sigmoid volvulus status post flex Sig decompression with rectal tube. Patient was seen by surgery who recommended surgery but patient refused.
He denies smoking or alcohol use.
Medical History
Past Medical History
Past Medical History: Reports Other (sigmoid volvulus, CVA, squamous of carcinoma of tongue, hearing loss,)
Past Surgical History: Reports None
Social History
Tobacco: Non-smoker
Alcohol: None
Drug: None
Family History
Family History: Not pertinent
Allergies / Home Medications
Allergies reflects when Allergies were last updated in [facility].
Home Medications with original date entered in [facility]
Allergy/Medication List:
Allergies
Allergy/AdvReac Type Severity Reaction Status Date / Time
NKA - No Known Allergies Allergy Unknown Uncoded 12/01/23 15:56
Home Medications
aspirin 81 mg chewable tablet 81 mg PO DAILY 12/01/23
atorvastatin 20 mg tablet 20 mg PO HS 12/01/23
latanoprost 0.005 % eye drops 1 drp LEFT EYE HS 12/01/23
timolol maleate 0.5 % eye drops 1 drp LEFT EYE BID 12/01/23
Review of Systems
-
History Source: Patient
A 12 point ROS was completed and negative except as noted: Yes
Constitutional: Reports No Symptoms
EENT: Reports No Symptoms
Respiratory: Reports No Symptoms
Cardiac: Reports No Symptoms
Abdomen/GI: Reports See HPI
: Reports No Symptoms
Musculoskeletal: Reports No Symptoms
Skin: Reports No Symptoms
Neurological: Reports No Symptoms
Endocrine: Reports No Symptoms
Hematologic/Lymphatic: Reports No Symptoms
Psych: Reports No Symptoms
Physical Exam
Vital Signs
Vital Signs
Temp Pulse Resp BP Pulse Ox
98.2 F 75 11 155/88 97
12/01/23 15:56 12/01/23 19:30 12/01/23 19:30 12/01/23 18:34 12/01/23 17:30
Physical Exam
General: Well Developed, Well Nourished and No Apparent Distress
HEENT: NormoCephalic, Moist mucous membranes and Atraumatic
Respiratory: Clear
Cardiac: S1/S2 and Regular Rhythm; No Murmur or Rub
GI: Soft, Non Distended, Normal Bowel Sounds and Tender; No Organomegaly
Rectal: Deferred by Provider
Musculoskeletal: No Clubbing, No Cyanosis and No Edema
Skin: No Rash
Neuro: Nonfocal/grossly intact
Laboratory Results
-
12/01/23 16:03
12/01/23 16:03
Laboratory Results
Lactic Acid 1.0 mmol/L (0.7-2.0) 12/01/23 16:03
Total Bilirubin 1.2 mg/dl (0.2-1.3) 12/01/23 16:03
AST 35 U/L (17-59) 12/01/23 16:03
ALT 21 U/L (0-50) 12/01/23 16:03
Alkaline Phosphatase 71 U/L (38-126) 12/01/23 16:03
Lipase 234 U/L (23-300) 12/01/23 16:03
Data Reviewed
-
Lab Data: Labs Reviewed by me
Old Records: Reviewed
Impression/Plan
-
IMPRESSION:
PLAN:
# Recurrent acute sigmoid volvulus
-CT abdomen pelvis shows sigmoid volvulus with colonic distention, most pronounced ascending colon consistent with known distal obstruction
-N.p.o.
-IV fluids
-Zofran, Dilaudid as needed
-GI consulted and recommending surgical evaluation
-Colorectal consulted
History of CVA
-Hold aspirin, statin for now
History squamous cell carcinoma of tongue
Hearing loss
Glaucoma
-Continue eyedrops
Full code
DVT prophylaxis�heparin
N.p.o.
--- NOTE | 2023-12-01 20:32 | CON.MD ---
Consultation - Medical
-
Consult to be dictated.
History, vitals, labs, imaging reviewed. Patient seen and examined.
83-year-old male with recurrent sigmoid volvulus. There is no evidence on imaging for perforation. 6 months ago he was admitted with the same and with a similar CT. That was his first attack. Successful colonoscopic decompression was performed
by GI. Surgery was consulted but the patient was not interested. He understood apparently the risk of recurrence. Patient is back with a day of abdominal pain and distention. Vitals are reasonable. On exam he is distended but not tender. I
discussed the situation with the patient in detail. I offered options of repeat colonoscopic decompression by either myself or GI versus urgent surgical intervention in the form of a Kramer's procedure. The patient wishes to undergo
decompression. He understands the risks including but not limited to perforation, inadequate decompression, and the potential need for urgent surgery. He is willing to proceed with this. I discussed this with his as well. The patient does
realize that ideally he stays in the hospital for few days afterwards to undergo a bowel prep presuming he undergoes a successful decompression followed an elective sigmoidectomy thereafter. He is still not interested in surgery if he can avoid it.
He is quite cognizant of the circumstance. He realizes that his recurrence rate is 80% or higher. All question answered.
Thanks.
--- NOTE | 2023-12-01 22:28 | W.PN.UPDATE ---
Addendum entered and electronically signed by Zehng Kam MD 12/01/23 22:43:
Updated patient's , Yu.
Original Note:
Update Note
Progress Note Update
Flex sig done. Volvulus decompressed and decompression tube placed. Will check abdominal film in am. Patient denies pain. Of note, patient had ST changes occurred on rhythm strip--EKG and BMP ordered. Hospitalist updated. Will resume diet.
--- NOTE | 2023-12-01 23:10 | PTCARENOTE ---
Pt arrived @2309. Pt AAOx3, with no complaints of pain or SOB at this time. Pt arrived with rectal tube in place. Pt oriented to room and call baker; will continue to monitor
[2023-12-02 00:16] LABS: Blood Urea Nitrogen 25 mg/dl (9-20); Calcium 8.4 mg/dl (8.4-10.2); Carbon Dioxide 22 mmol/L (22-30); Chloride 108 mmol/L (98-107); Estimated Creatinine Clearance 77 ml/min; Glucose 113 mg/dl (70-99); Potassium 4.4 mmol/L (3.5-5.1); Sodium 141 mmol/L (135-145); eGFR > 60.00
[2023-12-02] MEDS: NSS 1000 IV ×2 (00:25→11:15)
[2023-12-02] MEDS: XALATAN OPHTHALMIC SOLUTION 1 DROP LEFT EYE (00:29)
[2023-12-02] MEDS: TIMOPTIC 0.5% OPHTHALMIC SOLUTION 1 DROP LEFT EYE ×2 (00:29→08:53)
[2023-12-02 02:20] LABS: Urine Albumin Trace (Neg - Trace); Urine Bilirubin Negative (Negative); Urine Character Clear (Clear); Urine Color Yellow; Urine Glucose Negative (Negative); Urine Ketone 1+ (Negative); Urine Leukocyte Negative (Negative); Urine Nitrite Negative (Negative); Urine Occult Blood 1+ (Negative); Urine Urobilinogen Negative (Neg - 1+)
[2023-12-02 03:23] VITALS: BP 120/67
[2023-12-02 03:53] LABS: Urine Sperm Seen
[2023-12-02 03:54] LABS: Urine Bacteria Few (Negative); Urine Red Blood Cell 16-20 /HPF (0-2)
[2023-12-02 08:00] VITALS: BP 120/72
[2023-12-02 08:15] LABS: % Basophils 0.6 % (0-2); % Eosinophils 1.1 % (0-6); % Immature Granulocytes 0.3 % (0-0.5); % Lymphocytes 24.1 % (20.5-51.1); % Monocytes 16.4 % (1.7-9.3); % Neutrophils 57.5 % (42.2-75.2); Absolute Eosinophils 0.1 10^3/uL (0-0.7); Absolute Lymphocytes 1.6 10^3/uL (1.2-3.4); Absolute Monocytes 1.1 10^3/uL (0.1-0.6); Absolute Neutrophils 3.8 10^3/uL (1.4-6.5); Hematocrit 40.3 % (39.0-52.0); Hemoglobin 13.8 g/dL (13.0-18.0); Mean Corp Hgb Conc. 34.2 g/dL (33.0-37.0); Mean Corpuscular Hgb 32.9 pg (27.0-31.0); Mean Corpuscular Volume 96.2 fL (80.0-94.0); Mean Platelet Volume 10.2 fL (7.4-10.4); Nucleated Red Blood Cells % 0 % (-); Platelet Count 152 10^3/uL (130-400); Red Blood Cell Count 4.19 10^6/uL (4.70-6.10); White Blood Cell Count 6.5 10^3/uL (4.8-10.8)
[2023-12-02 08:33] LABS: ALT (SGPT) 15 U/L (0-50); AST (SGOT) 28 U/L (17-59); Albumin 3.1 g/dl (3.5-5.0); Alkaline Phosphatase 58 U/L (38-126); Blood Urea Nitrogen 23 mg/dl (9-20); Calcium 8.1 mg/dl (8.4-10.2); Carbon Dioxide 27 mmol/L (22-30); Chloride 107 mmol/L (98-107); Estimated Creatinine Clearance 68 ml/min; Glucose 84 mg/dl (70-99); Sodium 140 mmol/L (135-145); Total Bilirubin 1.2 mg/dl (0.2-1.3); Total Protein 5.5 g/dl (6.3-8.2); eGFR > 60.00
[2023-12-02] MEDS: LOW STRENGTH ASPIRIN 81 MG PO (08:53)
--- NOTE | 2023-12-02 09:43 | CM ---
efficiency manager reviewed patient's chart and met with patient, patient is [place] ([place] patient lives with spouse in a split level home, patient is independent with adl's and ambulation, no dme.
Pharmacy: [facility]
PCP: Dr. Berrios
Plan; Home when stable, no needs.
--- NOTE | 2023-12-02 10:07 | W.PN.CRS1 ---
Today's Communication / Plan
-
Abdominal x-rays
Patient wishes not to have surgery during this admission
Assessment/Plan
-
Postop day #1 sigmoidoscopy with decompression for sigmoid volvulus
-Abdominal x-rays ordered this morning, will follow
-Continue decompression tube pending x-rays
-Tolerating a full liquid diet
-Patient is asking to be discharged today and is against surgery during this admission. He will consider it for the future. Long discussion held with the patient explaining that likely this is going to recur and he is a high risk for recurrence
given he has had now 2 over the past year. He understands the risks and would like to be discharged and follow-up as an outpatient for a sigmoidectomy in the near future. For now we will await x-rays, and advance his diet if able.
Subjective Data
Subjective Data
Date of Service: December 02, 2023
Patient states that he feels 'great'. He is not bloated. He denies abdominal pain. He has no nausea or vomiting. He is very hungry. He is asking to go home.
Objective Data
-
Vital Signs
Temp Pulse Resp BP Pulse Ox
97.6 F 72 18 120/72 97
12/02/23 08:00 12/02/23 08:00 12/02/23 08:00 12/02/23 08:00 12/02/23 08:00
Intake & Output
12/01/23 12/02/23 12/03/23
06:59 06:59 06:59
Intake Total 240 / 240
Output Total 500 / 500
Balance -260 / -260
Intake:
Oral fluids 240 / 240
Output:
Urine, Voided 500 / 500
Lab Results
12/02/23 06:27
12/02/23 06:27
Physical Exam
-
General: No Acute Distress and AOx3
Abdomen: Soft, Non Distended and Non Tender
Skin: Warm and Dry
[2023-12-02 10:36] VITALS: BMI 18.5
--- NOTE | 2023-12-02 11:10 | W.PN.HOSP.TC ---
Today's Communication/Plan
-
Follow-up formal read of abdominal x-ray
Speak with colorectal surgery
Possible discharge
Assessment / Plan
Assessment / Plan
#Recurrent acute sigmoid volvulus
-CT abdomen pelvis shows sigmoid volvulus with colonic distention, ascending colon consistent with known distal obstruction
-Last occurrence of this was roughly 6 months ago, denied surgical intervention at that time
-Status post sigmoidoscopy with decompression, states he feels well today
-Repeat abdominal x-ray without signs of volvulus on my prelim read, final read pending
-Will speak with colorectal surgery about providing full diet and discharge
#Elevated serum troponin
-Troponin this morning was 0.07, mention of ST depression during his procedure yesterday
-No ECG with signs of ischemia during his hospitalization, he has had no chest pain
-This is very likely nonischemic myocardial infarction from hemodynamic stress of anesthesia
-Will repeat troponin now with ECG
#History of CVA
-No obvious residual deficits, no history of A-fib
-Home medications include aspirin and statin
#Glaucoma
-Unilateral, left eye
-Continue with timolol and latanoprost eyedrops
#History squamous cell carcinoma of tongue
#Hearing loss
Full code
DVT prophylaxis�heparin
N.p.o.
Anticipated Discharge: Today
Subjective/Interval History
-
Date of Service: December 02, 2023
Seen and examined at the bedside. No acute events reported overnight. Sigmoidoscopy with decompression of the volvulus was successful.
As of this morning the patient states he feels well, would like to eat and be discharged
He denies chest pain, shortness of breath, fevers or chills, nausea, vomiting, abdomen pain, abnormal bleeding or bruising, paresthesias or weakness, urinary issues as of this morning.
Objective Data
-
Labs:
Laboratory Results
12/01/23 12/02/23
23:51 06:27
WBC 6.5
Hgb 13.8
Hct 40.3
Plt Count 152 D
Sodium 141 140
Potassium 4.4 4.0
Chloride 108 H 107
Carbon Dioxide 22 27
BUN 25 H 23 H
Creatinine 0.7 0.8
Glucose 113 H 84
Calcium 8.4 8.1 L
Total Bilirubin 1.2
AST 28
ALT 15
Alkaline Phosphatase 58
Vital Signs:
Vital Signs
Temp Pulse Resp BP Pulse Ox
97.6 F 72 18 120/72 97
12/02/23 08:00 12/02/23 08:00 12/02/23 08:00 12/02/23 08:00 12/02/23 08:00
I&O
12/01/23 12/02/23 12/03/23
06:59 06:59 06:59
Intake Total 240 / 240
Output Total 500 / 500
Balance -260 / -260
Review of Systems
-
History Source: Patient
All other systems: Reviewed and negative
Physical Exam
-
General: Well Nourished, No Apparent Distress and Comfortable
HEENT: Normocephalic, Atraumatic and Moist Mucous Membranes
Respiratory: Clear to Auscultation and Non Labored Respirations; Negative Wheezes, Rales or Rhonchi
Cardiac: Regular Rhythm and S1/S2; Negative Murmur, Rub, JVD or Gallop
GI: Soft, Nontender, Nondistended and Normal Bowel Sounds; Negative Organomegaly
Rectal: Deferred by Provider
Genito-urinary: No Costovertebral Tender
Musculoskeletal: No Clubbing, No Cyanosis and No Edema
Skin: Warm and Dry; Negative Rash
Neuro: AO x 3, Nonfocal/Grossly Intact and Central Nerve's Intact
Psych: Calm
Data Reviewed
-
Diagnostic Radiology: Image personally visualized and interpreted and Discussed with Physician
Labs: Labs Reviewed by me and Discussed with Patient
[2023-12-02 11:39] VITALS: BP 134/83
[2023-12-02] MEDS: CITROMA 300 ML PO (12:27)
[2023-12-02 12:34] LABS: Troponin I 0.057 ng/ml
--- NOTE | 2023-12-02 14:13 | W.DCSUMMARY ---
Discharge Summary
Discharge Data
Date of Admission: 12/01/23
Date of Discharge: 12/02/23
-
Pending Results: No
Hospital Course
83-year-old male with recurrent sigmoid volvulus, SCC of tongue, history of CVA, glaucoma that presented with abdominal pain that felt similar to previous episodes of sigmoid volvulus. Was noted to not have bowel movement the day of his arrival,
associated with some nausea. Underwent previous sigmoid decompression with rectal tube. Was recommended for sigmoidectomy at the time the patient deferred against surgical intervention. Was seen by colorectal surgery upon arrival who performed
sigmoidoscopy with decompression. Abdominal x-ray the following day showed resolution of volvulus, significant stool burden within the large bowel. Colorectal surgery recommended bowel regimen at discharge with follow-up in 1 to 2 weeks for
discussion of sigmoidectomy. Cautioned patient to return to the ED if you develop recurrent symptoms, including obstipation and worsening abdominal pain/bloating/distention.
Discharge Plan
-
Patient Disposition: Home (Routine Discharge)
Discharge Diagnosis/Procedures: Recurrent sigmoid volvulus
Condition: Fair
Diet: No restrictions
Additional Diets: Full diet as tolerated
Activity: As tolerated
Driving Restrictions: No driving for 24 hours
Bathing Restrictions: None
Blood Work: None
Others Tests: None
Activity Restrictions/Additional Instructions:
Schedule follow-up appointment with your family doctor and colorectal surgeon referral within 7 days of discharge from the hospital. You will discuss surgical options, including sigmoidectomy, with the colorectal surgeon when you see them in the
office.
If you develop the inability to have bowel movements, worsening abdominal distention, or recurrence of other signs that brought you into the hospital then return to the emergency department for reevaluation for additional recurrence of your volvulus
Instructions: Mechanical Bowel Obstruction (DC)
Referrals:
Zheng Kam MD [Active] - in two weeks
Yves Berrios MD [Family Provider] -
Additional Discharge Medication Instructions: Take docusate 250 mg twice daily
Take MiraLAX once daily
Prescriptions:
New
docusate sodium 250 mg capsule
250 mg PO BID 30 Days Qty: 60 0RF
polyethylene glycol 3350 [Miralax] 17 gram/dose powder
4 g PO DAILY 30 Days Qty: 120 0RF
Continued
latanoprost 0.005 % Drops
1 drp LEFT EYE HS
atorvastatin 20 mg Tablet
20 mg PO HS
aspirin 81 mg Tablet,Chewable
81 mg PO DAILY
timolol maleate 0.5 % Drops
1 drp LEFT EYE BID
Discharge Orders:
Discharge Patient (As Directed); Ordered 12/02/23
Ordered By: Clifford Solomon
Discharge Date and Time
Print Language: THAI
[2023-12-02 15:28] VITALS: BP 122/83
== END 2023-12-02 16:28 | disposition home or self-care (01) | DRG 390 ==
LOC: 4 WEST ACU 20:07
PROVIDERS: Nurse Practitioner Gerontology; Physician Assistant; ADMITTING PHYSICIAN Hospitalist; ATTENDING PHYSICIAN Internal Medicine; CONSULT PHYSICIAN Surgery; EMERGENCY PHYSICIAN Emergency Medicine; FAMILY PHYSICIAN Family Medicine
PROC: 0D9N80Z Drainage of Sigmoid Colon with Drainage Device, Via Natural or Artificial Opening Endoscopic (ICD-10-PCS; 2023-12-01)
DX: K56.2 Volvulus (principal); H91.90 Unspecified hearing loss, unspecified ear; H40.9 Unspecified glaucoma; R79.89 Other specified abnormal findings of blood chemistry; Z85.810 Personal history of malignant neoplasm of tongue; Z86.73 Personal history of transient ischemic attack (TIA), and cerebral infarction without residual deficits; Z79.82 Long term (current) use of aspirin; Z79.899 Other long term (current) drug therapy
CPT/HCPCS: 74018; 74177; 80048; 80053; 81003; 81015; 83605; 83690; 84484; 85025; 93005; 96361; 96374; 96375; 99285; Q9967

== ENCOUNTER 2023-12-03 22:01 | Inpatient (IN) | payer OTHER, SELFPAY ==
[2023-12-03] VITALS (12 sets, daily range): BP systolic 127–184; BP diastolic 80–110
[2023-12-03 14:47] LABS: % Basophils 0.3 % (0-2); % Eosinophils 1.5 % (0-6); % Immature Granulocytes 0.3 % (0-0.5); % Lymphocytes 17.8 % (20.5-51.1); % Monocytes 14.1 % (1.7-9.3); Absolute Eosinophils 0.1 10^3/uL (0-0.7); Absolute Lymphocytes 1.1 10^3/uL (1.2-3.4); Absolute Monocytes 0.8 10^3/uL (0.1-0.6); Absolute Neutrophils 3.9 10^3/uL (1.4-6.5); Hematocrit 44.3 % (39.0-52.0); Hemoglobin 15.1 g/dL (13.0-18.0); Mean Corp Hgb Conc. 34.1 g/dL (33.0-37.0); Mean Corpuscular Hgb 32.8 pg (27.0-31.0); Mean Corpuscular Volume 96.1 fL (80.0-94.0); Mean Platelet Volume 9.8 fL (7.4-10.4); Nucleated Red Blood Cells % 0 % (-); Platelet Count 167 10^3/uL (130-400); Red Blood Cell Count 4.61 10^6/uL (4.70-6.10); Red Cell Dist. Width 13.7 % (11.5-14.5)
[2023-12-03 15:03] LABS: Lactic Acid 1.2 mmol/L (0.7-2.0)
[2023-12-03 15:06] LABS: ALT (SGPT) 22 U/L (0-50); AST (SGOT) 52 U/L (17-59); Albumin 4.2 g/dl (3.5-5.0); Alkaline Phosphatase 69 U/L (38-126); Blood Urea Nitrogen 25 mg/dl (9-20); Calcium 8.8 mg/dl (8.4-10.2); Carbon Dioxide 31 mmol/L (22-30); Chloride 101 mmol/L (98-107); Glucose 116 mg/dl (70-99); Lipase 208 U/L (23-300); Potassium 4.1 mmol/L (3.5-5.1); Sodium 140 mmol/L (135-145); Total Bilirubin 1.1 mg/dl (0.2-1.3); Total Protein 6.7 g/dl (6.3-8.2); eGFR > 60.00
--- NOTE | 2023-12-03 17:17 | ED.GENMED ---
History of Present Illness
<Chantale Krishnan PA-C - Last Filed: 12/04/23 00:02>
General
Chief Complaint: Abdominal Pain
Source: patient and spouse
Exam Limitations: none
Time Seen by Provider: 12/03/23 16:35
Nursing documentation reviewed up to this point in time: agreed with
History of Present Illness
History of Present Illness:
Patient is an 83-year-old male with history of sigmoid volvulus presenting to the emergency department with lower abdominal discomfort 2 days following sigmoidoscopy with Dr. Kam. Patient presents to the emergency department due to intractable
lower abdominal pain. Patient recently admitted for sigmoid volvulus 11/30-12/01 was counseled and recommended for surgical sigmoid colectomy by colorectal surgery although patient declined at that time despite high recurrence rates with
sigmoidoscopy. Patient discharged yesterday morning with symptom improvement and states yesterday evening he had a gradual onset of lower abdominal pain which has been constant and much more severe today. He denies any associated fever, chills,
nausea, or vomiting. He has not had any bowel movement since discharge from the hospital. He does state that this 'feels similar to prior volvulus but worse'.
Past History
<Chantale Krishnan PA-C - Last Filed: 12/04/23 00:02>
Past History
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
ED Past Surgical History: Other (broken arm, tongue)
Patient has exhibited threatening behavior?: No
Social History
Tobacco: Non-smoker
Alcohol: None
Drug: None
Review of Systems
<Chantale Krishnan PA-C - Last Filed: 12/04/23 00:02>
Review of Systems
Allergies reviewed?: Yes
All Other Systems: ROS reviewed and negative except as documented in HPI and ROS
Phy Exam
<Chantale Krishnan PA-C - Last Filed: 12/04/23 00:02>
Physical Exam
Physical Exam:
Vitals: Hypertensive, otherwise vital signs stable. Afebrile
General: Patient is in significant discomfort due to pain. Nontoxic-appearing
Skin: Warm and dry, no rashes or lesions
Head: Normocephalic, atraumatic
Eyes: Sclera nonicteric. EOMs intact. No nystagmus.
Throat: Protecting airway
Neck: Normal ROM, no cervical spine tenderness, no meningismus
Cardiac: Regular rate and rhythm, no murmurs.
Pulm: Normal respiratory effort, no wheezes, rales, rhonchi heard on exam.
Abdomen: Moderate to severe diffuse abdominal tenderness with voluntary guarding. Abdomen nondistended and soft. No CVA tenderness
Extremities: No evidence of cyanosis or edema.
Neuro: Grossly intact.
Psychiatric: Normal affect.
Course
<Chantale Krishnan PA-C - Last Filed: 12/04/23 00:02>
Orders/Labs/Results
Orders:
Orders
12/03/23 14:34
Complete Blood Count/With Diff Urgent
Comprehensive Metabolic Panel Urgent
Lactic Acid Urgent
Lipase Urgent
12/03/23 16:51
0.9% Sodium Chloride 1000 ml [Nss] 1,000 ml IV BOLUS
HYDROmorphone [Dilaudid] 0.5 mg IV NOW STA
Iohexol [Omnipaque] See Protocol PO NOW STA
Ondansetron Injectable [Zofran] 4 mg IV NOW STA
12/03/23 17:11
CT Abd/Pel (IV only)-DH only Urgent
Comment: hx sigmoid volvulus, recent sigmoidoscopy
Reason For Exam: Lower abdominal pain
12/03/23 18:37
HYDROmorphone [Dilaudid] 0.5 mg IV NOW STA
12/03/23 18:44
Urinalysis Reflex To Culture Urgent
Date Specimen was Collected: 12/03/23
Time Specimen was Collected: 18:40
Urine Microscopic Reflex Cult Urgent
12/03/23 20:55
HYDROmorphone [Dilaudid] 0.5 mg IV NOW STA
12/03/23 21:12
Lidocaine HCl/Pf [Xylocaine-Mpf 1% Vial] 50 mg .ROUTE .STK-MED ONE
Phenylephrine HCl/0.9% NaCl [Kenneth-Synephrine] 1,000 mcg .ROUTE .STK-MED ONE
Propofol [Diprivan] 20 ml .ROUTE .STK-MED
Succinylcholine Chloride [Succinylcholine] 200 mg .ROUTE .STK-MED ONE
12/03/23 21:15
HYDROmorphone [Dilaudid] 0.25 mg IV PACU-Q5MPRN PRN
HYDROmorphone [Dilaudid] 0.5 mg IV PACU-Q5MPRN PRN
Meperidine [Demerol] 12.5 mg IV PACU-Q5MPRN PRN
Normosol (Mult Electrolytes) [Normosol-R] 1,000 ml IV PER PROTOCOL
Ondansetron Injectable [Zofran] 4 mg IV PACU-ONCEPRN PRN
Prochlorperazine [Compazine] 5 mg IV PACU-ONCEPRN PRN
Notify MD As Directed
Notify physician if: for SDS patients with known or suspected sleep obstructive sleep apnea, monitor in the
PACU.
Notify MD for any apneic/desaturation episodes
O2 Therapy [RESP] Urgent
Titrate/Wean O2 to maintain O2 sat greater than (%): 92
Special Instructions: -Provide supplemental oxygen to achieve O2 sat of 92% or greater.
-After 15 min, may wean O2 and discontinue if patient is able to maintain O2 sat of 92%
or greater during recovery period.
If patient is a discharge home, without oxygen therapy, notify anestheiologist if
unable to maintain O2 SAT of 92% or greater on room air for MD clearance.
12/03/23 21:34
Admit/Transfer Patient As Directed
Co-Sign Provider:
Level of Care: Inpatient admission
Assign to:: Medical/Surgical
Physician / Group: htay
Diagnosis: Recurrent acute sigmoid volvulus
Reason for Hospitalization: Recurrent acute sigmoid volvulus
Expected length of stay greater than two midnights?: Yes
ELOS- Estimated Length of Stay in days: 2
I certify the patient meets the requirements for IP care: Yes
12/03/23 21:35
Code Status As Directed
Resuscitation Status: Full Code
Abnormal Lab Results
12/03/23 12/03/23
14:34 18:44
RBC 4.61 L 10^6/uL
(4.70-6.10)
MCV 96.1 H fL
(80.0-94.0)
MCH 32.8 H pg
(27.0-31.0)
Absolute Lymphs (auto) 1.1 L 10^3/uL
(1.2-3.4)
Absolute Monos (auto) 0.8 H 10^3/uL
(0.1-0.6)
Lymphocytes % 17.8 L %
(20.5-51.1)
Monocytes % 14.1 H %
(1.7-9.3)
Carbon Dioxide 31 H mmol/L
(22-30)
BUN 25 H mg/dl
(9-20)
Glucose 116 H mg/dl
(70-99)
Urine Ketones 2+ A
(Negative)
Ur Occult Blood Reflex 3+ A
(Negative)
Urine RBC 7-10 A /HPF
(0-2)
Urine Albumin (Reflex) 1+ A
(Neg - Trace)
12/03/23 14:34
08/30/24 14:34
Vital Signs
Initial and Last Documented VS:
Initial Vital Signs
Temp Pulse Resp BP Pulse Ox
98.3 F 78 20 153/110 93
12/03/23 14:20 12/03/23 14:20 12/03/23 14:20 12/03/23 14:20 12/03/23 14:20
Last Documented Vital Signs
Temp Pulse Resp BP Pulse Ox
98.2 F 91 30 127/80 88
12/03/23 22:45 12/03/23 23:45 12/03/23 23:45 12/03/23 23:30 12/03/23 23:45
<Margot Robles MD - Last Filed: 12/03/23 19:52>
Orders/Labs/Results
Orders:
Orders
12/03/23 14:34
Complete Blood Count/With Diff Urgent
Comprehensive Metabolic Panel Urgent
Lactic Acid Urgent
Lipase Urgent
12/03/23 16:51
0.9% Sodium Chloride 1000 ml [Nss] 1,000 ml IV BOLUS
HYDROmorphone [Dilaudid] 0.5 mg IV NOW STA
Iohexol [Omnipaque] See Protocol PO NOW STA
Ondansetron Injectable [Zofran] 4 mg IV NOW STA
12/03/23 17:11
CT Abd/Pel (IV only)-[facility] only Urgent
Comment: hx sigmoid volvulus, recent sigmoidoscopy
Reason For Exam: Lower abdominal pain
12/03/23 18:37
HYDROmorphone [Dilaudid] 0.5 mg IV NOW STA
12/03/23 18:44
Urinalysis Reflex To Culture Urgent
Date Specimen was Collected: 12/03/23
Time Specimen was Collected: 18:40
Urine Microscopic Reflex Cult Urgent
12/03/23 20:55
HYDROmorphone [Dilaudid] 0.5 mg IV NOW STA
12/03/23 21:12
Lidocaine HCl/Pf [Xylocaine-Mpf 1% Vial] 50 mg .ROUTE .STK-MED ONE
Phenylephrine HCl/0.9% NaCl [Kenneth-Synephrine] 1,000 mcg .ROUTE .STK-MED ONE
Propofol [Diprivan] 20 ml .ROUTE .STK-MED
Succinylcholine Chloride [Succinylcholine] 200 mg .ROUTE .STK-MED ONE
12/03/23 21:15
HYDROmorphone [Dilaudid] 0.25 mg IV PACU-Q5MPRN PRN
HYDROmorphone [Dilaudid] 0.5 mg IV PACU-Q5MPRN PRN
Meperidine [Demerol] 12.5 mg IV PACU-Q5MPRN PRN
Normosol (Mult Electrolytes) [Normosol-R] 1,000 ml IV PER PROTOCOL
Ondansetron Injectable [Zofran] 4 mg IV PACU-ONCEPRN PRN
Prochlorperazine [Compazine] 5 mg IV PACU-ONCEPRN PRN
Notify MD As Directed
Notify physician if: for SDS patients with known or suspected sleep obstructive sleep apnea, monitor in the
PACU.
Notify MD for any apneic/desaturation episodes
O2 Therapy [RESP] Urgent
Titrate/Wean O2 to maintain O2 sat greater than (%): 92
Special Instructions: -Provide supplemental oxygen to achieve O2 sat of 92% or greater.
-After 15 min, may wean O2 and discontinue if patient is able to maintain O2 sat of 92%
or greater during recovery period.
If patient is a discharge home, without oxygen therapy, notify anestheiologist if
unable to maintain O2 SAT of 92% or greater on room air for MD clearance.
12/03/23 21:34
Admit/Transfer Patient As Directed
Co-Sign Provider:
Level of Care: Inpatient admission
Assign to:: Medical/Surgical
Physician / Group: htay
Diagnosis: Recurrent acute sigmoid volvulus
Reason for Hospitalization: Recurrent acute sigmoid volvulus
Expected length of stay greater than two midnights?: Yes
ELOS- Estimated Length of Stay in days: 2
I certify the patient meets the requirements for IP care: Yes
12/03/23 21:35
Code Status As Directed
Resuscitation Status: Full Code
Abnormal Lab Results
12/03/23 12/03/23
14:34 18:44
RBC 4.61 L 10^6/uL
(4.70-6.10)
MCV 96.1 H fL
(80.0-94.0)
MCH 32.8 H pg
(27.0-31.0)
Absolute Lymphs (auto) 1.1 L 10^3/uL
(1.2-3.4)
Absolute Monos (auto) 0.8 H 10^3/uL
(0.1-0.6)
Lymphocytes % 17.8 L %
(20.5-51.1)
Monocytes % 14.1 H %
(1.7-9.3)
Carbon Dioxide 31 H mmol/L
(22-30)
BUN 25 H mg/dl
(9-20)
Glucose 116 H mg/dl
(70-99)
Urine Ketones 2+ A
(Negative)
Ur Occult Blood Reflex 3+ A
(Negative)
Urine RBC 7-10 A /HPF
(0-2)
Urine Albumin (Reflex) 1+ A
(Neg - Trace)
12/03/23 14:34
12/03/23 14:34
Vital Signs
Initial and Last Documented VS:
Initial Vital Signs
Temp Pulse Resp BP Pulse Ox
98.3 F 78 20 153/110 93
12/03/23 14:20 12/03/23 14:20 12/03/23 14:20 12/03/23 14:20 12/03/23 14:20
Last Documented Vital Signs
Temp Pulse Resp BP Pulse Ox
98.2 F 91 30 127/80 88
12/03/23 22:45 12/03/23 23:45 12/03/23 23:45 12/03/23 23:30 12/03/23 23:45
<Chantale Krishnan PA-C - Last Filed: 12/04/23 00:02>
MDM/Problems Addressed
Differential Diagnosis Includes:
Not limited to: Sigmoid volvulus, bowel obstruction, bowel perforation, diverticulitis, UTI, prostatitis
MDM/Problems Addressed:
83-year-old male with history of sigmoid volvulus presents with severe lower abdominal pain 2 days postop from sigmoidoscopy for volvulus. Patient discharged from hospital yesterday. No associated fever, chills, nausea, or vomiting. No bowel
movement since discharge from hospital. Patient hypertensive on arrival�likely due to discomfort. He is afebrile and nontoxic-appearing. Patient does appear very uncomfortable due to pain. Abdomen is nondistended although he is moderately to
severely tender diffusely throughout lower abdomen. Heart regular rate and rhythm. Lungs clear bilaterally. Patient perfusing well with no focal neurologic deficits. Initial labs obtained in triage noted. No clinically significant
abnormalities. No leukocytosis. Lactic acid is normal. Will treat pain and give IV fluids. Did discuss with colorectal surgeon, Dr. Camarillo on-call who recommends CT abdomen/pelvis with IV contrast.
Patient has required multiple doses of IV Dilaudid due to pain. CT report reviewed which shows distal sigmoid obstruction. Report discussed with Dr. Camarillo who will plan for OR tonight. Patient discussed with hospitalist who is excepted to their
service. Patient in stable condition and transported to the OR for flexible sigmoidoscopy versus surgical management if needed.
Chronic conditions affecting care:
History of sigmoid volvulus
Acute Exacerbation and/or Progression of Chronic Illness:
Sigmoid volvulus
<Chantale Krishnan PA-C - Last Filed: 12/04/23 00:02>
*Radiology
Radiology exam reviewed: preliminary read by ED provider and radiology read reviewed (Distal sigmoid obstruction)
*Pulse Oximetry
Patient hypoxic: no
*EKG
Interpreted by ED Provider?: NA
*Filing Writer Interpretation
Rate: Filing Writer- N/A
*Critical Care Note
Total Time (30-74mins, 75-104mins- exclusive of procedures): Not Applicable
Data Reviewed
Review of Other/Old Records Reveals: Records (Hospital admission from 11/30-12/01), Radiology Studies and Operative Reports (Sigmoidoscopy report from 12/01/23)
<Chantale Krishnan PA-C - Last Filed: 12/04/23 00:02>
Patient Management
Discussion with other providers: Hospitalist and [employer] (Dr. Camarillo - colorectal surgery )
Escalation/DeEscalation of care consider admission/obs:
Admit to the OR for sigmoidoscopy for surgical management with Dr. Camarillo
ED Attending Note
<Chantale Krishnan PA-C - Last Filed: 12/04/23 00:02>
-
Portions of this chart may have been created with voice recognition software.� Occasional wrong word or��sound alike� substitutions may have occurred due to the inherent limitations of voice recognition software.
<Margot Robles MD - Last Filed: 12/03/23 19:52>
ED Attending Note
Patient seen and examined by attending physician: Yes
I performed the substantive portion of visit, reviewed & personally made and approve the management plan that is documented in note by myself or JAVAD.: Yes
ED Attending Note:
The patient has a history of recurrent volvulus. Patient presents with severe abdominal pain. Patient reports that his abdominal pain is now much better but he still has some degree of abdominal pain. He reports it is poorly localized. On exam,
patient has diminished bowel sounds. He is clear breath sounds. He has mild diffuse abdominal tenderness without rebound or guarding. We are awaiting his CT.
Discharge Plan
Departure
Patient Disposition: Admit
Date of Disposition: 12/03/23
Time of Disposition: 20:58
Presentation/result/management discussed w/ accepting MD/DO: Hospitalist
Discharge Problem:
Sigmoid volvulus
Interventions
Interventions:
*Risk Screen - Suicide Last Done: 12/03/23 14:20
*General Assessment Last Done: 12/03/23 14:20
*Neglect/Abuse Screening Last Done: 12/03/23 14:20
ED- Fall Risk Assessment Last Done: 12/03/23 21:29
*ED COVID-19 Vaccine History Last Done: 12/03/23 21:29
*Nursing Disposition Last Done: 12/03/23 21:29
UT-Xxzocv-Vrvrclxcwm Assessment Last Done: 12/03/23 19:02
Discharge Date and Time
Discharge Date/Time: 12/03/23 21:29
[2023-12-03] MEDS: DILAUDID 0.5 MG IV ×3 (17:19→21:07)
[2023-12-03] MEDS: ZOFRAN 4 MG IV (17:19)
[2023-12-03] MEDS: NSS 1000 IV (17:20)
[2023-12-03 19:19] LABS: Urine Albumin 1+ (Neg - Trace); Urine Bilirubin Negative (Negative); Urine Character Clear (Clear); Urine Color Yellow; Urine Glucose Negative (Negative); Urine Ketone 2+ (Negative); Urine Leukocyte Negative (Negative); Urine Nitrite Negative (Negative); Urine Occult Blood 3+ (Negative); Urine Urobilinogen Negative (Neg - 1+)
[2023-12-03 20:11] LABS: Urine White Cell 0-2 /HPF (0-5)
[2023-12-03 20:12] LABS: Urine Mucus Few
--- NOTE | 2023-12-03 21:28 | HPS.HSE ---
Family Physician
-
Family Physician: Yves Berrios
Chief Complaint
-
intractable lower abdominal pain
History of Present Illness
83M HX recurrent sigmoid obstruction, DC'd 2 days post sigmoidoscopy w/ Dr. Kam for reversal of sigmoid volvulus. Discharged yesterday. retured to ER for due to intractable lower abdominal pain
Labs unremarkable. Lactic normal.
CT showed distal sigmoid obstruction similar to 12/01/23.
ER gave Dilaudid and IVF
Medical History
Past Medical History
Past Medical History: Reports Other
Additional Past Medical History:
sigmoid volvulus, CVA, squamous of carcinoma of tongue, hearing loss,
Past Surgical History: Reports None
Social History
Tobacco: Non-smoker
Alcohol: None
Drug: None
Family History
Family History: Not pertinent
Allergies / Home Medications
Allergies reflects when Allergies were last updated in [facility].
Home Medications with original date entered in [facility]
Allergy/Medication List:
Allergies
Allergy/AdvReac Type Severity Reaction Status Date / Time
NKA - No Known Allergies Allergy Unknown Uncoded 12/01/23 15:56
Home Medications
aspirin 81 mg chewable tablet 81 mg PO DAILY 12/01/23
atorvastatin 20 mg tablet 20 mg PO HS 12/01/23
latanoprost 0.005 % eye drops 1 drp LEFT EYE HS 12/01/23
timolol maleate 0.5 % eye drops 1 drp LEFT EYE BID 12/01/23
Review of Systems
-
History Source: Patient
A 12 point ROS was completed and negative except as noted: Yes
Constitutional: Reports No Symptoms
EENT: Reports No Symptoms
Respiratory: Reports No Symptoms
Cardiac: Reports No Symptoms
Abdomen/GI: Reports See HPI
: Reports No Symptoms
Musculoskeletal: Reports No Symptoms
Skin: Reports No Symptoms
Neurological: Reports No Symptoms
Endocrine: Reports No Symptoms
Hematologic/Lymphatic: Reports No Symptoms
Psych: Reports No Symptoms
Physical Exam
Vital Signs
Vital Signs
Temp Pulse Resp BP Pulse Ox
98.3 F 91 18 151/89 93
12/03/23 14:20 12/03/23 21:04 12/03/23 21:04 12/03/23 21:04 12/03/23 21:00
Physical Exam
General: Well Developed, Well Nourished and No Apparent Distress
HEENT: NormoCephalic, Moist mucous membranes and Atraumatic
Respiratory: Clear
Cardiac: S1/S2 and Regular Rhythm; No Murmur or Rub
GI: Soft, Non Distended, Normal Bowel Sounds and Tender; No Organomegaly
Rectal: Deferred by Provider
Musculoskeletal: No Clubbing, No Cyanosis and No Edema
Skin: No Rash
Neuro: Nonfocal/grossly intact
Laboratory Results
-
12/03/23 14:34
12/03/23 14:34
Laboratory Results
Lactic Acid Cancelled 12/03/23 21:00
Total Bilirubin 1.1 mg/dl (0.2-1.3) 12/03/23 14:34
AST 52 U/L (17-59) 12/03/23 14:34
ALT 22 U/L (0-50) 12/03/23 14:34
Alkaline Phosphatase 69 U/L (38-126) 12/03/23 14:34
Lipase 208 U/L (23-300) 12/03/23 14:34
Data Reviewed
-
CT Scan: Report Reviewed by me
Lab Data: Labs Reviewed by me
Old Records: Reviewed
Impression/Plan
-
Reviewed VS:
Vital Signs
Temp Pulse Resp BP Pulse Ox
98.3 F 91 18 151/89 93
12/03/23 14:20 12/03/23 21:04 12/03/23 21:04 12/03/23 21:04 12/03/23 21:00
Data
12/03/23 12/03/23
14:34 18:44
WBC 6.0
Hgb 15.1
Potassium 4.1
Carbon Dioxide 31 H
BUN 25 H
Creatinine 0.8
eGFR > 60.00
Glucose 116 H
Urine RBC 7-10 A
Urine WBC (Reflex) 0-2
CT Abd/Pel (IV only)-DH only
1). Distal sigmoid obstruction similar to that seen on the 12/01/2023 examination with dilated gas-filled colon measuring up to 8.5 cm.
2). Moderate volume ascites, increased in volume when compared with the prior study
Last hospitalist admission:
12/01/23 - 12/02/23 DX: Recurrent sigmoid volvulus
ASSESSMENT & PLAN
Recurrent acute sigmoid volvulus
- Distal sigmoid obstruction similar to that seen on the 12/01/2023 with dilated gas-filled colon measuring up to 8.5 cm.
-Last occurrence 12/01/23
- NPO and IVF
- PRN Dilaudid Analgesia
- CRS consulted - suggest for OR tonight
HX CVA
-No obvious residual deficits, no history of A-fib
- Home medications include aspirin and statin
HX Glaucoma
-Unilateral, left eye
-Continue with timolol and latanoprost eyedrops
HX squamous cell carcinoma of tongue
Hearing loss
DVT Px: SQH
Code: Full
IP MS
--- NOTE | 2023-12-03 22:40 | W.IMMPOSTOP ---
Addendum entered and electronically signed by Ty Camarillo MD 12/03/23 22:57:
updated by phone
Original Note:
Surgical Immed Post Op Note
-
Primary Surgeon: Rabia
Pre-op Diagnosis: Sigmoid volvulus
Post-op Diagnosis: Same
Procedure Performed: Rigid sigmoidoscopy, flexible sigmoidoscopy, placement of rectal tube
Anesthesia Type: MAC
Specimen / Cultures: None
Estimated Blood Loss: 1cc
Complications: None immediate
Operative Findings: Rigid sig unable to traverse the torsed area, flexible sig was able to traverse it; there was no large release of gas or stool; the mucosa all appeared viable, 24fr malecott with the tip removed was placed and not secured
--- NOTE | 2023-12-03 22:47 | OR.RPT ---
Operative Report
Operative Report
Primary Surgeon: Rabia
Pre-op Diagnosis: Sigmoid volvulus
Post-op Diagnosis: Same
Procedure Performed: Rigid sigmoidoscopy, flexible sigmoidoscopy, placement of rectal tube
Anesthesia Type: MAC
Specimen / Cultures: None
Estimated Blood Loss: 1cc
Complications: None immediate
Operative Findings: Rigid sig unable to traverse the torsed area, flexible sig was able to traverse it; there was no large release of gas or stool; the mucosa all appeared viable, 24fr malecott with the tip removed was placed and not secured
Date of Surgery: 12/03/23
Indications: This 83M developed recurrent sigmoid volvulus. Rigid sigmoidoscopy, possible flexible sigmoidoscopy, possible exploratory laparotomy was planned.
PROCEDURE: After informed consent was obtained, the patient was brought to the operative suite and placed supine on the operating table. The patient was sedated, and legs were placed in stirrups.
The digital rectal exam was normal. The rigid sigmoidoscope was introduced and advanced under direct vision. The scope was unable to traverse the obstruction. The scope was removed and a flexible sigmoidoscope was introduced. The flexible scope was
able to traverse the obstruction. The scope was inserted to a depth of 45cm under direct vision. Some liquid stool and healthy appearing mucosa was noted. The flexible scope was removed. A 24fr malecott drain was than cut at the tip so it could pass
through the rigid scope. The rigid scope was again advanced, this time it was able to be hubbed. The drain was passed through the rigid scope and the scope was removed. The drain was not sutured in place.
The patient tolerated the procedure well and was taken to the PACU in stable condition.
--- NOTE | 2023-12-03 23:25 | W.PN.UPDATE ---
Update Note
Progress Note Update
PACU XR concerning for re-volvulized sigmoid colon. Plan for rpt flex sig, will use longer tube in place of malecott. Plan for rpt XR on the OR table if the procedure is successful. If it is not successful, will proceed to ex-lap. updated by
phone. D/w patient as well.
[2023-12-04] VITALS (29 sets, daily range): BP systolic 14–163; BP diastolic 54–93; BMI 18.3
--- NOTE | 2023-12-04 00:51 | CON.GS ---
Consultation
-
Date/Time Consultation Performed: 10PM 12/03/23
Requesting Provider: Eulogio
Performing Provider: Rabia
Reason for Consultation: Recurrent sigmoid volvulus
Medical History
-
Chief Complaint: Abd pain
History of Present Illness:
83M returns with recurrent abd pain. Similar to prior episode two days ago. He was diagnosed with sigmoid volvulus at the time and a rectal tube was placed. Sigmoidectomy was recommended but he preferred to defer. He was home less than 24 hrs before
the pain recurred.
Past Medical History
Past Medical History: Other (sigmoid volvulus, CVA, squamous of carcinoma of tongue, hearing loss,)
Past Surgical History: Reviewed & Noncontributory
Social History
Tobacco: Non-Smoker
Alcohol: None
Drug: None
Personal:
Living: With Family
Family History
Family History: Reviewed & Noncontributory
Allergies / Home Medications
Allergy/AdvReac Type Severity Reaction Status Date / Time
No Known Allergies Allergy Verified 12/03/23 14:20
�Medication �Instructions �Recorded �Confirmed �Type
aspirin 81 mg chewable tablet 81 mg PO DAILY Blood Clot 12/01/23 12/03/23 History
Prevention/Tx
atorvastatin 20 mg tablet 20 mg PO HS High Cholesterol 12/01/23 12/03/23 History
latanoprost 0.005 % eye drops 1 drp LEFT EYE HS Eye Condition 12/01/23 12/03/23 History
timolol maleate 0.5 % eye drops 1 drp LEFT EYE BID Eye Condition 12/01/23 12/03/23 History
docusate sodium 250 mg capsule 250 mg PO BID Volvulus 1 month #60 12/02/23 12/03/23 Rx
caps
polyethylene glycol 3350 17 4 g PO DAILY Volvulus 1 month #120 12/02/23 12/03/23 Rx
gram/dose oral powder (Miralax) grams
Review of Systems
-
A 10 point review of systems was completed, and was negative except as per HPI.
Physical Exam
Vital Signs
Temp Pulse Resp BP Pulse Ox
98.4 F 76 10 137/88 93
12/03/23 23:45 12/04/23 00:00 12/04/23 00:00 12/04/23 00:00 12/04/23 00:00
Lab Results
12/03/23 14:34
12/03/23 14:34
WBC 6.0 10^3/uL (4.8-10.8) 12/03/23 14:34
Hgb 15.1 g/dL (13.0-18.0) 12/03/23 14:34
Hct 44.3 % (39.0-52.0) 12/03/23 14:34
Plt Count 167 10^3/uL (130-400) 12/03/23 14:34
Abs Immat Gran (auto) 0.0 10^3/uL (0-0.05) 12/03/23 14:34
Neutrophils % 66.0 % (42.2-75.2) 12/03/23 14:34
Physical Exam
General: No Apparent Distress
GI: Soft, Tender (severe ttp diffusely) and Distended
Skin: Warm and Dry
Psych: Calm
Data Reviewed
-
CT Scan: Image Personally Visualized and interpreted, Report Reviewed by me, Discussed with Physician, Discussed with Patient and Discussed with Family
Labs: Labs Reviewed by me and Discussed with Physician
Old Records: Reviewed
Assessment / Plan
-
83M with recurrent sigmoid volvulus
Plan for endoscopic decompression and placement of rectal tube.
We discussed the need for surgery if colonoscopic decompression is unsuccessful. Surgery may involve bowel resection and possible colostomy.
Risks, benefits, complications and alternatives were discussed in detail including but not limited to pain, bleeding, perforation, recurrence. I strongly advised in the event we are successful endoscopically, that he remain an inpatient for bowel
prep and eventual sigmoidectomy.
Discussed with by phone as well.
--- NOTE | 2023-12-04 01:00 | OR.RPT ---
Operative Report
Operative Report
Primary Surgeon: Rabia
Pre-op Diagnosis: Sigmoid volvulus
Post-op Diagnosis: Same
Procedure Performed: flexible sigmoidoscopy, placement of rectal tube
Anesthesia Type: MAC
Specimen / Cultures: None
Estimated Blood Loss: 1cc
Complications: None immediate
Operative Findings: flexible sig was able to reach 1M depth; the mucosa all appeared viable, 14fr colonic decompression tube placed
Date of Surgery: 12/04/23
Indications: This 83M developed recurrent sigmoid volvulus. Flexible sigmoidoscope traversed the torsed area, but plain films in recovery room showed recurrent or persistent volvulus. Repeat flexible sigmoidoscopy with decompression tube was
planned.
PROCEDURE: After informed consent was obtained, the patient was brought to the operative suite and placed supine on the operating table. The patient was sedated, and legs were placed in stirrups.
The digital rectal exam was normal. The flexible scope was introduced and advanced under vision. It was able to traverse the obstruction and reached a depth of 1M. Some liquid stool and healthy appearing mucosa was noted. A guidewire was passed
through the biopsy channel of the scope and the scope was gently withdrawn. The decompression tube was passed over the wire and advanced into position. The wire was removed. The drain was not sutured in place.
The patient tolerated the procedure well and was taken to the PACU in stable condition.
[2023-12-04] MEDS: DILAUDID 0.5 MG IV ×2 (01:03→07:49)
[2023-12-04] MEDS: DEMEROL 12.5 MG IV ×2 (01:10→01:19)
--- NOTE | 2023-12-04 01:55 | W.PN.UPDATE ---
Update Note
Progress Note Update
Pt with no improvement i pain in PACU. Sent for stat CT, there are signs of small bubbles of extraluminal air. There is concern for bowel perforation. Discussed with patient.
Plan for exploratory laparotomy, sigmoidectomy, end colostomy. Discussed with patient and . Risks reviewed again. All are in agreement to proceed.
[2023-12-04] MEDS: ZOFRAN 4 MG IV (01:59)
[2023-12-04 03:50] LABS: B.E. - POC 1.8 mmol/L; Glucose - POC 116 mg/dl (70-99); HCO3 - POC 27 mmol/L (21-29); Hematocrit - POC 38 % PCV (42-52); Hemodilution- POC No; Hemoglobin Calculated - POC 12.8; Ionized Calcium - POC 0.98 mmol/L (1.12-1.27); Lactate - POC 0.41 mmol/L (0.36-0.75); PCO2 - POC 41 mmHg (35-45); PO2 - POC 532 mmHg (80-100); Potassium - POC 2.9 mmol/L (3.6-5.0); Sodium - POC 143 mmol/L (135-145); pH - POC 7.42 (7.35-7.45)
--- NOTE | 2023-12-04 04:30 | W.IMMPOSTOP ---
Surgical Immed Post Op Note
-
Primary Surgeon: Rabia
Pre-op Diagnosis: Sigmoid volvulus, perforated viscus
Post-op Diagnosis: Same
Procedure Performed: Exploratory laparotomy, sigmoidectomy, end colostomy
Anesthesia Type: GETA
Specimen / Cultures: Sigmoid colon
Estimated Blood Loss: 5cc
Complications: None immediate
Operative Findings: Minimal contamination, thoroughly irrigated, rectal tube perforated the rectum, the rectum was transected below this point, about 10cm from the peritoneal reflection and tagged with a prolene stitch; the left ureter was
visualized and protected; ng tube verified in the stomach; sigmoid hyperemic and ratty at the torsion point but no necrosis, resected back to descending colon/sigmoid junction, descending colostomy created; 19 fr emile drain into the pelvis,
updated by phone
--- NOTE | 2023-12-04 05:05 | W.PN.UPDATE ---
Addendum entered and electronically signed by Salas Muro MD 12/04/23 11:50:
Noted possible Perforated viscus per stat CT AP
s/p flexible sigmoidoscope and rectal tube
- then s/p sigmoidectomy and colostomy by Surgeon
- initiated empiric Zosyn ( d/w ICU AP)
Original Note:
Update Note
Progress Note Update
Post sigmoidectomy and colostomy
- Dr Camarillo request Post op ICU care
[2023-12-04] MEDS: NSS 1000 IV ×2 (05:22→21:01)
--- NOTE | 2023-12-04 06:33 | PTCARENOTE ---
Assumed care of pt from PACU, Oriented to name and confused on time and place, TRIBE B/L hearing aids, Sinus 80's, R A-line 131/63 (90), SCD's no edema, + radials and pedals, NGT L nare 75cm, BSx3 no BS in left lower quadrant, two surgical
incisionsm
--- NOTE | 2023-12-04 06:39 | PTCARENOTE ---
Assumed care of pt from PACU, Oriented to name and confused on time and place, BREVIG [place] B/L hearing aids, Sinus 80's, R A-line 131/63 (90), SCD's no edema, + radials and pedals, NGT L nare 75cm, BSx3 no BS in left lower quadrant, two surgical
incisions upper and lower in the middle of abd covered with aquacell dressings, shadowing on both dressings confirmed with PACU nurse that it was more shadowing than previously noted AUTO SERVICE MECHANIC notified, R PAULA drain RLQ with serosanguineous drainage,
colostomy LLQ stoma dark red with bloody drainage,
[2023-12-04 06:45] LABS: Lactic Acid 1.4 mmol/L (0.7-2.0)
--- NOTE | 2023-12-04 06:45 | PTCARENOTE ---
Assumed care of pt from PACU, Oriented to name and confused on time and place bed alarm on, NIKOLAI B/L hearing aids, Sinus 80's, R A-line 131/63 (90), SCD's no edema, + radials and pedals, NGT L nare 75cm, BSx3 no BS in left lower quadrant, two
surgical incisions upper and lower in the middle of abd covered with aquacell dressings, shadowing on both dressings confirmed with PACU nurse that it was more shadowing than previously noted STRUCTURAL FITTER notified, R PAULA drain RLQ with serosanguineous
drainage, colostomy LLQ stoma dark red with bloody drainage, 16F hinkle with yellow output, 16G RAC, 20G LFA NS 100ml otherwise refer to documentation
[2023-12-04 06:46] LABS: Blood Urea Nitrogen 25 mg/dl (9-20); Calcium 8.3 mg/dl (8.4-10.2); Carbon Dioxide 26 mmol/L (22-30); Chloride 106 mmol/L (98-107); Estimated Creatinine Clearance 89 ml/min; Glucose 128 mg/dl (70-99); Potassium 4.1 mmol/L (3.5-5.1); Sodium 141 mmol/L (135-145); eGFR > 60.00
[2023-12-04] MEDS: ZOSYN 50 IV ×3 (06:50→17:52)
[2023-12-04 06:53] LABS: INR 1.26; PT 15.6 Sec (11.4-14.6)
[2023-12-04 06:54] LABS: APTT 25.4 Sec (23.4-35.0)
[2023-12-04] MEDS: XALATAN OPHTHALMIC SOLUTION LEFT EYE (07:07)
--- NOTE | 2023-12-04 07:44 | W.PN.HOSP.TC ---
Today's Communication/Plan
-
pain control
NPO/IVF
follow hgb
Assessment / Plan
Assessment / Plan
pt is an 83 year old male
Recurrent acute sigmoid volvulus--Distal sigmoid obstruction similar to that seen on the 12/01/2023 with dilated gas-filled colon measuring up to 8.5 cm---Last occurrence 12/01/23 (refused surgical intervention at that time)--went to OR for flex sug
and rectal tube--then had more pain with concern for bowel perf--taken back to OR again and had ex lap with sigmoidectomy and end colostomy--now in ICU--NPO/IVF--NGT as per surgery--pain control
HX CVA--No obvious residual deficits, no history of A-fib--Home medications include aspirin and statin--all on hold due to NPO status
HX Glaucoma--Unilateral, left eye--Continue with timolol and latanoprost eyedrops
HX squamous cell carcinoma of tongue -- noted
Hearing loss--VERY HARD of HEARING even with hearing aides
DVT proph--scds
code status -- FULL CODE
Total Critical Care Time 31 minutes. I was immediately available to the patient and staff. I personally examined, reviewed labs, diagnostic images/reports, interpretations, treatment plans, discussed patient care with other providers and family
or caregivers (if patient is unable to make decisions), entered orders as appropriate and documented the medical record.
Anticipated Discharge: > 48 hours
Subjective/Interval History
-
Date of Service: December 04, 2023
pt post op in ICU--c/o pain
Objective Data
-
Labs:
Laboratory Results
12/04/23
06:10
WBC Pending
Hgb Pending
Hct Pending
Plt Count Pending
PT 15.6 H
INR 1.26
APTT 25.4
Sodium 141
Potassium 4.1
Chloride 106
Carbon Dioxide 26
BUN 25 H
Creatinine 0.6 L
Glucose 128 H
Calcium 8.3 L
Vital Signs:
max temp for 24 hours
12/04/23
04:36
Temp 97.9 F
Vital Signs
Temp Pulse Resp BP Pulse Ox
97.7 F 76 13 129/65 96
12/04/23 07:41 12/04/23 06:30 12/04/23 06:30 12/04/23 05:30 12/04/23 06:30
I&O
12/03/23 12/04/23 12/05/23
06:59 06:59 06:59
Intake Total 400 / 400
Output Total 510 / 575 65 / 65
Balance -110 / -175 -65 / -65
Review of Systems
-
All other systems: Reviewed and negative
Abdomen/GI: Reports Abdominal Pain
Physical Exam
-
General: Appears Chronically Ill
HEENT: Normocephalic, Atraumatic, Oxygen and Other (NGT)
Respiratory: Clear to Auscultation; Negative Wheezes or Rhonchi
Cardiac: Regular Rhythm and S1/S2; Negative Murmur
GI: Soft, Nondistended and Tender; Negative Normal Bowel Sounds (hypoactive to no BS (post op))
Musculoskeletal: No Clubbing, No Cyanosis, No Edema and Other (knees pulled up to his chest)
Neuro: Awake and Alert
[2023-12-04] MEDS: HEPARIN 5000 UNITS SC ×2 (07:51→20:53)
[2023-12-04 07:52] LABS: Phosphorus 3.1 mg/dl (2.5-4.5)
--- NOTE | 2023-12-04 07:58 | PTCARENOTE ---
Pt opened eyes to RN entering the room. He is groggy from surgery and C/O pain in his abdomen 7/10 and throat. He states it hurts his abdomen when he swallows and clears his throat. He was oriented to place and time. He is aware his surgery is over
and that he is in his hospital room. He is asking appropriate questions regarding his recovery like when can he eat, when will the catheter in his bladder and his nose come out, and if his is aware of what happened. All Questions answered. Left
Fa#20g protective catheter with 0.9nss@100ml/hr. Right radial arterial line transduce, calibrated and monitored with all ports patent an secured. Correlates to right UA cuff pressure. +weak peripheral pulses. No edema. Knee-hi SCD's intact. Right
AC#16g protective catheter intact. Tolerating 2 liters nasal cannula. Breath sounds dim in the bases, poor inspiratory effort due to pain/discomfort. Mouth care performed. He was instructed to use the call baker should he have any nausea, and
increased pain/discomfort. He verbalized his understanding. Use of call baker demonstrated. Left nare Callahan sump tube to LIWS. No BSX4. Colostomy bag with bloody drainage. Stoma budded, moist and deep red/maroon. Abdominal Aquacel dressings saturated
with bloody drainage.. Right abdominal PAULA drain with scant amount bloody drainage. Hoff catheter secured with small amounts of yellow urine draining. He was informed of the plan of care for pain management, Activity, mouth care, and reporting
concerns. He verbalized his understanding. B/L hearing aids intact. Safe environment maintained.
[2023-12-04 08:29] LABS: Hematocrit 43.8 % (39.0-52.0); Hemoglobin 15.1 g/dL (13.0-18.0); Mean Corp Hgb Conc. 34.5 g/dL (33.0-37.0); Mean Corpuscular Hgb 31.9 pg (27.0-31.0); Mean Corpuscular Volume 92.4 fL (80.0-94.0); Mean Platelet Volume 10.7 fL (7.4-10.4); Platelet Count 165 10^3/uL (130-400); Red Blood Cell Count 4.74 10^6/uL (4.70-6.10); Red Cell Dist. Width 13.8 % (11.5-14.5); White Blood Cell Count 1.6 10^3/uL (4.8-10.8)
[2023-12-04] MEDS: OFIRMEV 100 IV ×2 (09:08→16:26)
--- NOTE | 2023-12-04 09:24 | PTCARENOTE ---
Ofirmev infused for mild pain he reported on pain assessment. He was reoriented to place. He thought he was home but quickly realized he was still in the hospital. Safe environment maintained.
[2023-12-04] MEDS: TIMOPTIC 0.5% OPHTHALMIC SOLUTION 1 DROP LEFT EYE (10:44)
--- NOTE | 2023-12-04 11:41 | CON.INTV ---
Consultation
Consultation Request
Date/Time Consultation Requested: 12/04/2023
Date/Time Consultation Performed: 12/04/2019
Requesting Provider: Dr. Diaz
Performing Provider: Dr. Harinder Benítez
Reason for Consultation: Status post bowel resection-recurrent sigmoid valve
Medical History
-
History of Present Illness:
83-year-old man with history of recurrent sigmoid obstruction, he was discharged 2 days ago post sigmoidectomy with Dr. Barth for reversal of sigmoid volvulus. Return to the emergency room complaining of intractable abdominal pain.
CT of the abdomen pelvis on 12/01/2023 showed distal sigmoid obstruction.
Evaluated by surgery, sigmoid decompression attempted. Patient did not respond to this intervention. Subsequently Dr. Jung determined that the patient needed surgical intervention.
Underwent exploratory laparotomy, sigmoidectomy and end colostomy.
Currently in the critical care unit. Alert. Cooperative.
Denies nausea vomiting
Past Medical History
Past Medical History: Other (See assessment and plan section)
Social History
Tobacco: Non-smoker
Alcohol: None
Drug: None
Family History
Family History: Reviewed & Not Pertinent
Allergies / Home Medications
Allergies
Allergy/AdvReac Type Severity Reaction Status Date / Time
No Known Allergies Allergy Verified 12/03/23 14:20
Home Medications
�Medication �Instructions �Recorded �Confirmed �Last Taken �Type
aspirin 81 mg chewable tablet 81 mg PO DAILY Blood Clot 12/01/23 12/03/23 12/03/23 History
Prevention/Tx
atorvastatin 20 mg tablet 20 mg PO HS High Cholesterol 12/01/23 12/03/23 12/02/23 History
latanoprost 0.005 % eye drops 1 drp LEFT EYE HS Eye Condition 12/01/23 12/03/23 12/02/23 History
timolol maleate 0.5 % eye drops 1 drp LEFT EYE BID Eye Condition 12/01/23 12/03/23 12/03/23 History
docusate sodium 250 mg capsule 250 mg PO BID Volvulus 1 month #60 12/02/23 12/03/23 12/02/23 Rx
caps
polyethylene glycol 3350 17 4 g PO DAILY Volvulus 1 month #120 12/02/23 12/03/23 12/03/23 Rx
gram/dose oral powder (Miralax) grams
Review of Systems
-
History Source: Patient
All other systems: Negative unless noted
Vitals / Labs / Diagnostic Testing
Vital Signs
Temp Pulse Resp BP Pulse Ox
97.9 F 90 14 122/75 95
12/04/23 10:50 12/04/23 09:45 12/04/23 09:45 12/04/23 08:00 12/04/23 10:50
Lab Data
12/04/23 06:10
12/04/23 06:10
Laboratory Results
12/04/23
06:10
PT 15.6 H
INR 1.26
APTT 25.4
Diagnostic Testing:
Physical Exam
-
HEENT: Normocephalic
Cardiovascular: S1/S2
Respiratory: Clear and Non-Labored Respirations
GI: Soft, Other (Colostomy in place) and Other (Incision intact.)
Neurology: Awake, Alert and Oriented
Skin: Warm
General: Comfortable
Assessment
-
Recurrent sigmoid volvulus-status post exploratory laparotomy with sigmoidectomy and end colostomy 12/04/2023.
Conditions present prior admission:
History of CVA
Squamous cell carcinoma of the tongue
Hearing loss
History of sigmoid volvulus
History of glaucoma
Assessment and plan:
Postoperative day 0
Progressing well clinically
N.p.o. per surgery-NG tube in place.
Colostomy care
IV fluids-normal saline 100 cc an hour.
Pain control with narcotics, monitor respiratory status closely
Antiemetics
Surgery following
-
Continue antibiotics. Surgery.
-
Hemodynamically stable. Discontinue A-line.
-
Follow H&H
Follow daily electrolyte
-
Incentive spirometer
DVT prophylaxis with SCDs
-
Consider transition to telemetry later today in the afternoon if remains stable.
If transfer out, critical care team will sign off.
--- NOTE | 2023-12-04 12:32 | PTCARENOTE ---
Dr. Camarillo at the bedside. Right radial arterial line and left Nare Wood sump tube discontinued as ordered. IVF discontinued as well. Pt is aware of the plan of care for sips of clears, po meds ok, along with ice chips.
[2023-12-04] MEDS: LOW STRENGTH ASPIRIN 81 MG PO (12:59)
[2023-12-04] MEDS: NSS IV (12:59)
[2023-12-04] MEDS: TORADOL 15 MG IV (13:37)
--- NOTE | 2023-12-04 15:06 | W.PN.UPDATE ---
Update Note
Progress Note Update
Pt seen and evaluated at bedside. Pain controlled. Denies n/v, virtually no NGT output. Exam approp, nd, mild-mod ttp chiquita-incisional, stoma pink/purple, slight edema, bowel sweat in the bag.
Will DC NGT, start sips and chips. OK for PO meds. OK for downgrade from ICU to med-surg.
[2023-12-04 15:59] LABS: Hemoglobin 14.9 g/dL (13.0-18.0); Mean Corp Hgb Conc. 33.9 g/dL (33.0-37.0); Mean Corpuscular Hgb 31.8 pg (27.0-31.0); Mean Corpuscular Volume 93.8 fL (80.0-94.0); Mean Platelet Volume 10.2 fL (7.4-10.4); Platelet Count 153 10^3/uL (130-400); Red Blood Cell Count 4.69 10^6/uL (4.70-6.10); Red Cell Dist. Width 13.9 % (11.5-14.5); White Blood Cell Count 5.8 10^3/uL (4.8-10.8)
--- NOTE | 2023-12-04 16:20 | TRANSFER ---
Report called to Emilee BATISTA. Pt to be transported via bed monitored with IVF & O2.
[2023-12-04 16:22] LABS: % Basophils 0.5 % (0-2); % Immature Granulocytes 0.3 % (0-0.5); % Lymphocytes 8.3 % (20.5-51.1); % Monocytes 9.7 % (1.7-9.3); % Neutrophils 81.2 % (42.2-75.2); Absolute Lymphocytes 0.5 10^3/uL (1.2-3.4); Absolute Monocytes 0.6 10^3/uL (0.1-0.6); Absolute Neutrophils 4.7 10^3/uL (1.4-6.5); Nucleated Red Blood Cells % 0 % (-)
[2023-12-04] MEDS: TIMOPTIC 0.5% OPHTHALMIC SOLUTION LEFT EYE ×2 (20:55→21:00)
[2023-12-04] MEDS: XALATAN OPHTHALMIC SOLUTION 1 DROP LEFT EYE (21:06)
[2023-12-04] MEDS: LIPITOR 20 MG PO (21:35)
[2023-12-05] MEDS: ZOSYN 50 IV ×4 (00:05→17:16)
[2023-12-05 07:56] LABS: Hematocrit 39.4 % (39.0-52.0); Hemoglobin 13.3 g/dL (13.0-18.0); Mean Corp Hgb Conc. 33.8 g/dL (33.0-37.0); Mean Corpuscular Hgb 31.8 pg (27.0-31.0); Mean Corpuscular Volume 94.3 fL (80.0-94.0); Mean Platelet Volume 11.2 fL (7.4-10.4); Platelet Count 145 10^3/uL (130-400); Red Blood Cell Count 4.18 10^6/uL (4.70-6.10); White Blood Cell Count 13.2 10^3/uL (4.8-10.8)
[2023-12-05] MEDS: HEPARIN 5000 UNITS SC ×2 (07:58→21:34)
[2023-12-05] MEDS: TIMOPTIC 0.5% OPHTHALMIC SOLUTION 1 DROP LEFT EYE ×2 (07:58→13:23)
[2023-12-05] MEDS: LOW STRENGTH ASPIRIN 81 MG PO (07:58)
[2023-12-05 08:05] VITALS: BP 130/71
--- NOTE | 2023-12-05 08:14 | W.PN.HOSP.TC ---
Today's Communication/Plan
-
advance diet per surgery
will eventually need speech and dietary consults
PT/OT
Assessment / Plan
Assessment / Plan
pt is an 83 year old male
Recurrent acute sigmoid volvulus--Distal sigmoid obstruction similar to that seen on the 12/01/2023 with dilated gas-filled colon measuring up to 8.5 cm---Last occurrence 12/01/23 (refused surgical intervention at that time)--went to OR for flex sug
and rectal tube--then had more pain with concern for bowel perf--taken back to OR again and had ex lap with sigmoidectomy and end colostomy--NPO/IVF--NGT removed--pain control
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
HX CVA--No obvious residual deficits, no history of A-fib--Home medications include aspirin and statin--all on hold due to NPO status
HX Glaucoma--Unilateral, left eye--Continue with timolol and latanoprost eyedrops
HX squamous cell carcinoma of tongue -- noted--pt coughing with eating and phlegm production may be related?--once able to allow oral intake, will consult speech--may need VSE
Hearing loss--VERY HARD of HEARING even with hearing aides
DVT proph--scds
code status -- FULL CODE
Anticipated Discharge: > 48 hours
Subjective/Interval History
-
Date of Service: December 05, 2023
pt asking about eating, asking about his 'bag for number 2', c/o coughing with eating with mucus and phlegm
Objective Data
-
Labs:
Laboratory Results
12/05/23
06:29
WBC 13.2 H
Hgb 13.3
Hct 39.4
Plt Count 145
Sodium Pending
Potassium Pending
Chloride Pending
Carbon Dioxide Pending
BUN Pending
Creatinine Pending
Glucose Pending
Calcium Pending
Total Bilirubin Pending
AST Pending
ALT Pending
Alkaline Phosphatase Pending
Vital Signs:
max temp for 24 hours
12/04/23
17:19
Temp 98.1 F
Vital Signs
Temp Pulse Resp BP Pulse Ox
97.8 F 89 20 110/64 97
12/04/23 23:38 12/04/23 23:38 12/04/23 23:38 12/04/23 23:38 12/04/23 23:38
I&O
12/04/23 12/05/23 12/06/23
06:59 06:59 06:59
Intake Total 400 / 400 2450 / 2450
Output Total 510 / 575 1115 / 1115
Balance -110 / -175 1335 / 1335
Review of Systems
-
All other systems: Reviewed and negative
Respiratory: Reports Cough (with eating, has to clear mucus)
Abdomen/GI: Reports Abdominal Pain (with coughing)
Physical Exam
-
General: Appears Chronically Ill and Cachectic
HEENT: Normocephalic, Atraumatic and Oxygen
Respiratory: Clear to Auscultation; Negative Wheezes or Rhonchi
Cardiac: Regular Rhythm and S1/S2; Negative Murmur
GI: Soft, Nontender, Nondistended and Ostomy (bloody drainage); Negative Normal Bowel Sounds (hypoactive bowel sounds)
Musculoskeletal: No Clubbing, No Cyanosis and No Edema
Neuro: Awake and Alert
[2023-12-05 08:40] LABS: ALT (SGPT) 16 U/L (0-50); AST (SGOT) 36 U/L (17-59); Albumin 2.7 g/dl (3.5-5.0); Alkaline Phosphatase 43 U/L (38-126); Blood Urea Nitrogen 32 mg/dl (9-20); Calcium 8.2 mg/dl (8.4-10.2); Carbon Dioxide 29 mmol/L (22-30); Chloride 105 mmol/L (98-107); Estimated Creatinine Clearance 54 ml/min; Glucose 92 mg/dl (70-99); Potassium 4.1 mmol/L (3.5-5.1); Sodium 142 mmol/L (135-145); Total Bilirubin 1.3 mg/dl (0.2-1.3); Total Protein 4.9 g/dl (6.3-8.2); eGFR > 60.00
[2023-12-05 11:15] VITALS: BP 122/79
--- NOTE | 2023-12-05 11:36 | W.PN.GS2 ---
Addendum entered and electronically signed by Ty Camarillo MD 12/05/23 13:51:
I saw and examined the patient.
The Feeder Operator's note was reviewed and I agree with the note.
Comment: Improving. Denies n/v. Pain controlled. Scant bowel sweat in the bag, stoma PPV. Cont IV abx. Start clears once cleared by DINKEY ENGINE FIRER/FIREMAN. PT
Original Note:
Today's Communication / Plan
-
Clear liquids
Assessment / Plan
-
82 yo male presenting with sigmoid volvulus with failed rectal decompression now POD #1 ex lap with sigmoidectomy and end colostomy
AFVSS
+leukocytosis
Mild acute anemia secondary to hemodilution and expected losses
Appliance with some flatus, no n/v
Pain well managed
--Chronic dysphagia s/p tx for throat ca, DINKEY ENGINE FIRER/FIREMAN consulted to follow
--OK for clear liquid diet as tolerated
--Multimodal analgesics
--Stoma nurse consult
--OOB/Ambulate. PT consulted to follow
--Hoff in place, VT in AM
--SCD's & Hep Sq for VTE ppx
Subjective Data
-
Date of Service: December 05, 2023
Patient seen and examined at bedside with Dr. Camarillo. Denies n/v. Notes that he has chronic cough with PO intake since he was treated for throat ca about 10 years ago. Pain improving to abdomen and is minimal.
Objective Data
-
Intake and Output
12/04/23 12/05/23 12/06/23
06:59 06:59 06:59
Intake Total 400 / 400 2450 / 2450
Output Total 510 / 575 1115 / 1115
Balance -110 / -175 1335 / 1335
Intake:
Oral fluids 320 / 320
IV fluids (Total) 350 / 350 1700 / 1700
Normosol 250 / 250
Nss 1,000 ml @ 100 mls/hr IV . 100 / 100 600 / 600
Q10H [facility] Rx#:[id number]
IV piggybacks 50 / 50 400 / 400
Amount instilled into GI Tube (
Total)
Cavalier Sump
Output:
Liquid stool amount
Colostomy
Drain Output (Total) 100 / 115 545 / 545
Right Middle Abdomen Christopher- 100 115 545 / 545
Shanks
Gastrointestinal tube output (
Total)
Cavalier Sump
Urine, Hoff 400 / 450 560 / 560
Vital Signs
Temp Pulse Resp BP Pulse Ox
98.0 F 96 16 130/71 96
12/05/23 08:05 12/05/23 08:05 12/05/23 08:05 12/05/23 08:05 12/05/23 08:05
Lab Results
12/05/23 06:29
12/05/23 06:29
Calcium 8.2 mg/dl (8.4-10.2) L 12/05/23 06:29
Phosphorus 3.1 mg/dl (2.5-4.5) 12/04/23 06:10
Magnesium 2.0 mg/dl (1.6-2.3) 12/05/23 06:29
Total Bilirubin 1.3 mg/dl (0.2-1.3) 12/05/23 06:29
AST 36 U/L (17-59) 12/05/23 06:29
ALT 16 U/L (0-50) 12/05/23 06:29
Alkaline Phosphatase 43 U/L (38-126) 12/05/23 06:29
Total Protein 4.9 g/dl (6.3-8.2) L D 12/05/23 06:29
Albumin 2.7 g/dl (3.5-5.0) L D 12/05/23 06:29
Physical Exam
-
NAD
OMAHA
ABD soft, mild tenderness, mild distention
Incision with shadowing on dressing. Stoma pink/viable with bowel sweat and flatus in bag
--- NOTE | 2023-12-05 11:39 | CM ---
Reviewed the chart notes and spoke with the patient at the bedside. The patient resides with his spouse in a split level home. The patient reports no DME/VN/SNF in the past. Patient reports being independent with maintaining his home inside and
outside. The patient confirmed his pharmacy of choice is [facility]. CM continues to be available to patient/family and is monitoring medical plan for needs at discharge.
Plan: Discharge plans will depend on the patient's progress. Patient has a new colostomy.
[2023-12-05 12:05] VITALS: BP 122/79
--- NOTE | 2023-12-05 13:23 | PTOTSP ---
ST Dysphagia Evaluation
Mild-moderate oral and suspected pharyngeal dysphagia; h/o base of tongue SCC
Pt received awake/alert at the bedside. Per pt report he had SCC of base of tongue ~11 years ago. S/p XRT and chemo however no resection of tongue but had 'almost all R-side lymph nodes removed'. Recalls completing VFSS during that time but has not
had one completed recently.
He states he had a stomach tube then but it was removed after 9 months and he has been eating/drinking normally since until couple months ago he noticed increased coughing and meals taking a long time to complete.
HOB raised upright for PO trials of puree, regular solids and thin liquids. Demo extended/purposeful mastication of regular solids benefits from moisture injection and liquid wash to clear. Thin liquids by straw audible gulp and throat clearing;
less audible gulp with small controlled sip from cup and elimination of throat clear.
Recommendations
1. From oropharyngeal standpoint can initiate Soft/bite-size solids (L6) and Thin liquids (L1) by cup
2. Aspiration precautions
3. Small bites of food moistened with gravy/sauce/dips etc, small/single sips from cup, and slow rate
4. Meds oral per pt preference and RN discretion - advise whole/single or crushed into apple sauce
5. SENIOR RELATIONSHIP MANAGER following; reassess swallow at bedside, consider inpatient v. outpatient video swallow
D/w RN and chat to MARKET MASTER re: eval findings and recommendations
[2023-12-05 15:07] VITALS: BMI 18.3
[2023-12-05 15:42] VITALS: BP 119/73
[2023-12-05] MEDS: NSS IV (18:22)
[2023-12-05] MEDS: NSS 1000 IV (18:22)
[2023-12-05] MEDS: TORADOL 15 MG IV (18:28)
[2023-12-05 19:56] VITALS: BP 117/74
[2023-12-05] MEDS: LIPITOR 20 MG PO (21:34)
[2023-12-05] MEDS: XALATAN OPHTHALMIC SOLUTION 1 DROP LEFT EYE (21:35)
[2023-12-05 23:46] VITALS: BP 114/71
[2023-12-06] VITALS (10 sets, daily range): BP systolic 111–137; BP diastolic 67–82
[2023-12-06] MEDS: ZOSYN 50 IV ×5 (00:01→23:30)
--- NOTE | 2023-12-06 00:20 | PTCARENOTE ---
patient noted to be in rapid Afib, sustaining in 120's to 130's on monitor, with many PVC's. BP 104/59. HR noted to be irregular upon auscultation and EKG obtained. patient is asymptomatic and resting in bed comfortably. House provider July Lopez
MANAGER FORENSIC notified immediately, delgado gtt order. will administer per order and assess per protocol. assessment on going
[2023-12-06] MEDS: CARDIZEM 125 IV ×2 (00:52→13:13)
[2023-12-06] MEDS: NSS 1000 IV ×3 (04:00→23:30)
[2023-12-06 06:34] LABS: Hematocrit 41.4 % (39.0-52.0); Hemoglobin 14.2 g/dL (13.0-18.0); Mean Corp Hgb Conc. 34.3 g/dL (33.0-37.0); Mean Corpuscular Hgb 33.1 pg (27.0-31.0); Mean Corpuscular Volume 96.5 fL (80.0-94.0); Mean Platelet Volume 10.3 fL (7.4-10.4); Platelet Count 144 10^3/uL (130-400); Red Blood Cell Count 4.29 10^6/uL (4.70-6.10); Red Cell Dist. Width 13.9 % (11.5-14.5); White Blood Cell Count 11.8 10^3/uL (4.8-10.8)
[2023-12-06 07:02] LABS: Blood Urea Nitrogen 38 mg/dl (9-20); Calcium 8.3 mg/dl (8.4-10.2); Carbon Dioxide 35 mmol/L (22-30); Chloride 105 mmol/L (98-107); Estimated Creatinine Clearance 60 ml/min; Glucose 96 mg/dl (70-99); Potassium 3.7 mmol/L (3.5-5.1); Sodium 143 mmol/L (135-145); eGFR > 60.00
[2023-12-06] MEDS: TIMOPTIC 0.5% OPHTHALMIC SOLUTION 1 DROP LEFT EYE ×2 (07:33→13:13)
[2023-12-06] MEDS: LOW STRENGTH ASPIRIN 81 MG PO (07:33)
[2023-12-06] MEDS: HEPARIN 5000 UNITS SC ×2 (07:33→20:36)
--- NOTE | 2023-12-06 09:06 | PTCARENOTE ---
0900: Patient complaining of chest pain/burning sensation. EKG completed. Full set of vital signs completed and WNL. Dr. Salas made aware. Cardizem gtt infusing per order. No new orders at this time. Care ongoing.
--- NOTE | 2023-12-06 09:13 | W.PN.GS2 ---
Addendum entered and electronically signed by Jeffrey Mccoy MD 12/06/23 12:23:
I saw and examined the patient independently.
The resident's note was reviewed and I agree with the note, assessment and plan except where noted below.
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
Okay for clears, TOY MECHANIC evaluation tomorrow.
Stoma care, PT OT
Will plan for 7-day course of antibiotics.
DC Hoff, trial of void.
General surgery will continue to follow
Original Note:
Today's Communication / Plan
-
Patient to continue with clear liquid diet for today. Consider video swallow study for tomorrow and advance diet accordingly. Continue monitoring colostomy bag for continued stool and flatulence. Patient to continue ambulation as tolerated. Continue
to monitor PAULA drain for clearing of contents.
Assessment / Plan
-
82 yo male presenting with sigmoid volvulus with failed rectal decompression now POD #2 ex lap with sigmoidectomy and end colostomy
AFVSS
Leukocytosis is resolving
Mild acute anemia secondary to hemodilution and expected losses- Now resolving
Appliance with some flatus and blood, no n/v
Pain well managed, only upon coughing
--Chronic dysphagia s/p tx for throat ca, TOY MECHANIC consulted to follow, recommend IDDSI 6 diet, continuing with clear liquids for today due to persistent dysphagia
--Multimodal analgesics as needed
--Stoma nurse consulted, input appreciated
--OOB/Ambulate. PT/OT consulted to follow
--Continue Empiric Zosyn treatment
--New instance of A-Fib, continue Cardizem as per Cardiology, input appreciated
--Hoff in place, awaiting voiding trial
--SCD's & Hep Sq for VTE ppx
Subjective Data
-
Date of Service: December 06, 2023
Patient has been feeling better but is still complaining of dysphagia. He has some mild abdominal tenderness and says his abdomen only hurts when he coughs. He has been tolerating the colostomy bag well.
Objective Data
-
Intake and Output
12/05/23 12/06/23 12/07/23
06:59 06:59 06:59
Intake Total 2450 / 2450 2720 / 2720
Output Total 1115 / 1115 935 / 935
Balance 1335 / 1335 1785 / 1785
Intake:
Oral fluids 320 / 320 120 / 120
IV fluids (Total) 1700 / 1700 2400 / 2400
Nss 1,000 ml @ 100 mls/hr IV . 600 / 600
Q10H ADAM Rx#:[id number]
IV piggybacks 400 / 400 200 / 200
Amount instilled into GI Tube ( 30
Total)
[place] 30 / 30
Output:
Liquid stool amount
Colostomy
Drain Output (Total) 545 / 545 10
Right Middle Abdomen Christopher- 545 / 545
Shanks
Urine, Hoff 560 / 560 925 / 925
Vital Signs
Temp Pulse Resp BP Pulse Ox
98.2 F 75 16 113/74 93
12/06/23 09:05 12/06/23 09:05 12/06/23 09:05 12/06/23 09:05 12/06/23 09:05
Lab Results
12/06/23 06:25
12/06/23 06:25
Calcium 8.3 mg/dl (8.4-10.2) L 12/06/23 06:25
Phosphorus 3.1 mg/dl (2.5-4.5) 12/04/23 06:10
Magnesium 2.0 mg/dl (1.6-2.3) 12/06/23 06:25
Total Bilirubin 1.3 mg/dl (0.2-1.3) 12/05/23 06:29
AST 36 U/L (17-59) 12/05/23 06:
ALT 16 U/L (0-50) 12/05/23 06:29
Alkaline Phosphatase 43 U/L (38-126) 12/05/23 06:
Total Protein 4.9 g/dl (6.3-8.2) L D 12/05/23 06:
Albumin 2.7 g/dl (3.5-5.0) L D 12/05/23 06:29
Physical Exam
-
NAD
TANANA
ABD soft, mild tenderness, mild distention
Incision with shadowing on dressing. Stoma pink/viable with flatus, stool and some blood seen in bag
PAULA drain- serosanguineous turbid fluid
[2023-12-06 10:49] LABS: Troponin I 0.018 ng/ml
--- NOTE | 2023-12-06 11:28 | CON.CAR ---
Addendum entered and electronically signed by Harris Pimentel MD 12/06/23 17:22:
I examined and interviewed the patient. I discussed the patient with resident MD Dr. Yang. I agree with plan below with additions/changes per this addendum.
83yo male with PMH of CVA, hyperlipidemia, PVC's admitted with volvulus, now s/p sigmoidectomy and end colostomy 12/04/23. We are consulted for new A fib with RVR. Patient asymptomatic. Exam with irregular rhythm, no murmurs, no edema. Tele: NSR-->
A fib. EKG: A fib, HR 75 (on diltiazem). Cr 0.9.
New A fib with RVR. Severe. Requiring IV diltiazem for rate control: continue. Monitor on tele. Will assess to switch to PO diltiazem in AM. If remains in A fib on hospital discharge, will discuss rhythm control at outpatient follow up.
CHADS2-VASC = 4(age, CVA). If stable tomorrow post, will start eliquis 5mg bid, and stop ASA.
Hyperlipidemia. Stable. continue statin.
Original Note:
Consultation
Consultation Request
Date/Time Consultation Requested: 12/06/2023
Date/Time Consultation Performed: 12/06/2023
Reason for Consultation: New onset atrial fibrillation
Medical History
-
Chief Complaint: Atrial fibrillation
History of Present Illness:
Mr. 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 Patient reports history of PVCs, informed to him by his
previous PCP. Patient denies palpitations, shortness of breath, chest pain.
Past Medical History
Past Medical History: Other (Sigmoid volvulus, CVA, squamous carcinoma of tongue, hearing loss)
Social History
Tobacco: Non-Smoker
Alcohol: None
Drug: None
Family History
Family History: Reviewed & Not Pertinent
Allergies / Home Medications
Allergy/AdvReac Type Severity Reaction Status Date / Time
No Known Allergies Allergy Verified 12/03/23 14:20
�Medication �Instructions �Recorded �Confirmed �Type
aspirin 81 mg chewable tablet 81 mg PO DAILY Blood Clot 12/01/23 12/03/23 History
Prevention/Tx
atorvastatin 20 mg tablet 20 mg PO HS High Cholesterol 12/01/23 12/03/23 History
latanoprost 0.005 % eye drops 1 drp LEFT EYE HS Eye Condition 12/01/23 12/03/23 History
timolol maleate 0.5 % eye drops 1 drp LEFT EYE BID@0800,1400 Eye 12/01/23 12/05/23 History
Condition
docusate sodium 250 mg capsule 250 mg PO BID Volvulus 1 month #60 12/02/23 12/03/23 Rx
caps
polyethylene glycol 3350 17 4 g PO DAILY Volvulus 1 month #120 12/02/23 12/03/23 Rx
gram/dose oral powder (Miralax) grams
Review of Systems
-
All other systems: Negative unless noted
Physical Exam
Vital Signs
Temp Pulse Resp BP Pulse Ox
97.7 F 85 18 121/82 94
12/06/23 11:00 12/06/23 11:00 12/06/23 11:00 12/06/23 11:00 12/06/23 11:00
Lab Results
12/06/23 06:25
12/06/23 06:25
Troponin I 0.018 ng/ml 12/06/23 09:55
Physical Exam
Respiratory: Non Labored Respirations
Cardiac: S1/S2 and Irregular Rhythm
Impression / Plan
-
Impression/plan
New onset atrial fibrillation with RVR
-Now rate controlled
-Continue Cardizem drip
-[id number] score = 4. will determine anticoagulation based on management of sigmoid volvulus, and if will require surgery
--- NOTE | 2023-12-06 13:10 | W.PN.HOSP.TC ---
Today's Communication/Plan
-
Continue current care
Assessment / Plan
Assessment / Plan
Gen-AAOx3, NAD
HEENT-NC, AT, anicteric, clear oral mm
Neck-supple
CV-reg, no M, +S1/S2
Lungs-clear B/L
Abd-soft, NT, ND
Ext-no edema
Musculoskeletal-no cyanosis, clubbing
Skin-warm and dry
Neuro-grossly non-focal
Psych-calm, cooperative
Recurrent acute sigmoid volvulus--Distal sigmoid obstruction similar to that seen on the 12/01/2023 with dilated gas-filled colon measuring up to 8.5 cm---Last occurrence 12/01/23 (refused surgical intervention at that time)--went to OR for flex sug
and rectal tube--then had more pain with concern for bowel perf--taken back to OR again and had ex lap with sigmoidectomy and end colostomy. Clear liquid diet per surgery.
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
HX CVA--No obvious residual deficits, no history of A-fib. Continue aspirin and Lipitor.
HX Glaucoma--Unilateral, left eye--Continue with timolol and latanoprost eyedrops
HX squamous cell carcinoma of tongue -- noted--pt coughing with eating and phlegm production may be related? Speech therapy following. Soft, bite sized foods and thin liquids recommended.
Hearing loss--VERY HARD of HEARING even with hearing aides
DVT proph--scds
code status -- FULL CODE
Anticipated Discharge: > 48 hours
Subjective/Interval History
-
Date of Service: December 06, 2023
Patient seen and examined. Complaining of nausea.
Objective Data
-
Labs:
Laboratory Results
12/06/23
06:25
WBC 11.8 H
Hgb 14.2
Hct 41.4
Plt Count 144
Sodium 143
Potassium 3.7
Chloride 105
Carbon Dioxide 35 H
BUN 38 H
Creatinine 0.9
Glucose 96
Calcium 8.3 L
Vital Signs:
Vital Signs
Temp Pulse Resp BP Pulse Ox
97.7 F 85 18 121/82 94
12/06/23 11:00 12/06/23 11:00 12/06/23 11:00 12/06/23 11:00 12/06/23 11:00
I&O
12/05/23 12/06/23 12/07/23
06:59 06:59 06:59
Intake Total 2450 / 2450 2720 / 2720
Output Total 1115 / 1115 935 / 935
Balance 1335 / 1335 1785 / 1785
Review of Systems
-
History Source: Patient
All other systems: Reviewed and negative
[2023-12-06] MEDS: ZOFRAN 4 MG IV ×2 (15:17→22:20)
[2023-12-06] MEDS: XALATAN OPHTHALMIC SOLUTION 1 DROP LEFT EYE (22:19)
[2023-12-06] MEDS: LIPITOR 20 MG PO (22:19)
[2023-12-07] MEDS: CARDIZEM 125 IV ×2 (01:01→11:36)
[2023-12-07 03:36] VITALS: BP 127/70
[2023-12-07] MEDS: ZOSYN 50 IV ×3 (05:15→17:17)
[2023-12-07 07:10] VITALS: BP 133/74
[2023-12-07 07:32] LABS: ALT (SGPT) 16 U/L (0-50); AST (SGOT) 32 U/L (17-59); Albumin 2.6 g/dl (3.5-5.0); Alkaline Phosphatase 79 U/L (38-126); Blood Urea Nitrogen 42 mg/dl (9-20); Calcium 7.9 mg/dl (8.4-10.2); Carbon Dioxide 32 mmol/L (22-30); Chloride 106 mmol/L (98-107); Estimated Creatinine Clearance 60 ml/min; Glucose 102 mg/dl (70-99); Potassium 3.7 mmol/L (3.5-5.1); Sodium 144 mmol/L (135-145); Total Bilirubin 1.2 mg/dl (0.2-1.3); Total Protein 4.9 g/dl (6.3-8.2); eGFR > 60.00
[2023-12-07 07:38] LABS: Hematocrit 43.2 % (39.0-52.0); Hemoglobin 14.7 g/dL (13.0-18.0); Mean Corpuscular Hgb 32.5 pg (27.0-31.0); Mean Corpuscular Volume 95.4 fL (80.0-94.0); Mean Platelet Volume 10.5 fL (7.4-10.4); Platelet Count 165 10^3/uL (130-400); Red Blood Cell Count 4.53 10^6/uL (4.70-6.10); Red Cell Dist. Width 13.8 % (11.5-14.5); White Blood Cell Count 14.1 10^3/uL (4.8-10.8)
--- NOTE | 2023-12-07 07:51 | W.PN.GS2 ---
Addendum entered and electronically signed by Crow Good MD 12/07/23 08:56:
Patient seen and examined.
No major complaints. Denies worsening abdominal pain. Reports stool via ostomy. Does report acute on chronic issues with dysphagia. In talking with the patient he has had issues with dysphagia and occasional regurgitation on an almost daily
basis for the past 6 to 9 months. Worse with solids compared to liquids. No reports of hemoptysis. Does have a prior history of base of tongue cancer s/p resection with chemo and radiation approximately 17 years ago. He has previously been on
TPN as well as had a PEG around that time. No reports of worsening chest pain or SOB. No fevers.
Gen: NAD
Abd: soft, minimal tenderness, ND, non-peritoneal, midline with shadowing, PAULA serosang, ostomy with stool in bag difficult to assess mucosal integrity
Patient is a 82 yo M POD #3 ex lap with sigmoidectomy and end colostomy
AFVSS
Leukocytosis seen on labs today. Differential remains broad and includes aspiration pneumonia, dehydration secondary to blood loss anemia, wound infection, UTI, amongst others
Mild acute anemia secondary to hemodilution and expected losses - stable
Appliance with some flatus, no nausea, mild episode of emesis yesterday
Pain well managed, mild abdominal pain upon coughing
--Acute on Chronic dysphagia s/p tx for throat ca, HOME HEALTH ADMINISTRATOR consulted to follow, recommended IDDSI 6 diet but patient unable to tolerate, continuing with clear liquids due to persistent dysphagia, Video swallow exam today
--CXR and UA to work-up leukocytosis
--Multimodal analgesics as needed
--Stoma nurse consulted, input appreciated
--OOB/Ambulate. PT/OT consulted to follow. Did not ambulate much yesterday, stressed importance of ambulation
--Continue Zosyn treatment for 7 days course (On day 3)
--New instance of A-Fib, continue Cardizem as per Cardiology, input appreciated, would hold on PO therapeutic anticoagulation at this point
--Hoff removed after successful void trial, continue to monitor I/Os
Original Note:
Today's Communication / Plan
-
Patient to undergo video fluoro swallow exam today. Continue monitoring for any abdominal pain or worsening nausea/vomiting.
Assessment / Plan
-
82 yo male presenting with sigmoid volvulus with failed rectal decompression now POD #3 ex lap with sigmoidectomy and end colostomy, continues to complain of dysphagia and not feeling like eating.
AFVSS
Leukocytosis seen on labs today. Continue to monitor as it might be due to dehydration
Mild acute anemia secondary to hemodilution and expected losses- Resolving
Appliance with some flatus, no nausea, mild episode of emesis yesterday
Pain well managed, mild abdominal pain upon coughing
--Acute on Chronic dysphagia s/p tx for throat ca, HOME HEALTH ADMINISTRATOR consulted to follow, recommended IDDSI 6 diet but patient unable to tolerate, continuing with clear liquids due to persistent dysphagia, Video swallow exam today
--Multimodal analgesics as needed
--Stoma nurse consulted, input appreciated
--OOB/Ambulate. PT/OT consulted to follow. Did not ambulate much yesterday, stressed importance of ambulation
--Continue Zosyn treatment for 7 days course (On day 3)
--New instance of A-Fib, continue Cardizem as per Cardiology, input appreciated
--Hoff removed after successful void trial, continue to monitor I/Os
--SCD's & Hep Sq for VTE ppx
Subjective Data
-
Date of Service: December 07, 2023
Patient says that he has been feeling better and has not been feeling any abdominal pain. Patient's only concern continues to be his dysphagia which is causing him much distress as he does not feel like eating. Patient reports having no nausea at
this time but had an episode of emesis yesterday which was precipitated by coughing.
Objective Data
-
Intake and Output
12/06/23 12/07/23 12/08/23
06:59 06:59 06:59
Intake Total 2720 / 2720 2420 / 2420
Output Total 935 / 935 750 / 750
Balance 1785 / 1785 1670 / 1670
Intake:
Oral fluids 120 / 120 1120 / 1120
IV fluids (Total) 2400 / 2400 1200 / 1200
IV piggybacks 200 / 200 100 / 100
Output:
Emesis 150 / 150
Drain Output (Total)
Right Middle Abdomen Christopher-
Shanks
Urine, Hoff 925 / 925
Urine, Voided 600 / 600
Vital Signs
Temp Pulse Resp BP Pulse Ox
98.0 F 68 18 133/74 92
12/07/23 07:10 12/07/23 07:10 12/07/23 07:10 12/07/23 07:10 12/07/23 07:10
Lab Results
12/07/23 06:20
12/07/23 06:20
Calcium 7.9 mg/dl (8.4-10.2) L 12/07/23 06:20
Phosphorus 3.1 mg/dl (2.5-4.5) 12/04/23 06:10
Magnesium 2.0 mg/dl (1.6-2.3) 12/06/23 06:25
Total Bilirubin 1.2 mg/dl (0.2-1.3) 12/07/23 06:20
AST 32 U/L (17-59) 12/07/23 06:20
ALT 16 U/L (0-50) 12/07/23 06:20
Alkaline Phosphatase 79 U/L (38-126) 12/07/23 06:20
Total Protein 4.9 g/dl (6.3-8.2) L 12/07/23 06:20
Albumin 2.6 g/dl (3.5-5.0) L 12/07/23 06:20
Physical Exam
-
NAD
[place]
ABD soft, mild tenderness upon palpation, mild distention
Incision with shadowing on dressing. Stoma pink/viable with flatus and stool seen in bag. No blood seen
PAULA drain- serosanguineous fluid
[2023-12-07] MEDS: HEPARIN 5000 UNITS SC ×2 (08:25→20:50)
[2023-12-07] MEDS: TIMOPTIC 0.5% OPHTHALMIC SOLUTION 1 DROP LEFT EYE ×2 (08:25→13:01)
[2023-12-07 08:26] LABS: % Basophils 0.4 % (0-2); % Eosinophils 1.6 % (0-6); % Immature Granulocytes 0.4 % (0-0.5); % Lymphocytes 6.7 % (20.5-51.1); % Monocytes 6.1 % (1.7-9.3); % Neutrophils 84.8 % (42.2-75.2); Absolute Basophils 0.1 10^3/uL (0-0.2); Absolute Eosinophils 0.2 10^3/uL (0-0.7); Absolute Immature Granulocytes 0.1 10^3/uL (0-0.05); Absolute Monocytes 0.9 10^3/uL (0.1-0.6); Nucleated Red Blood Cells % 0 % (-)
[2023-12-07] MEDS: NSS 1000 IV (08:26)
[2023-12-07 09:10] VITALS: BP 144/72; PULSE 72; O2SAT 94
--- NOTE | 2023-12-07 09:25 | CM ---
Reviewed chart, PT indicating SNF. Will talk to patient to determine if he is agreeable and what options he would like.
Plan: Case management will continue to follow and assist with discharge planning. Will discuss possibility of SNF and determine if patient is agreeable.
--- NOTE | 2023-12-07 09:42 | W.PN.CD ---
Today's Communication / Plan
-
continue diltiazem drip
video swallow today
echo
eventual eliquis (and stop ASA), but not yet
Impression / Plan
-
New onset atrial fibrillation with RVR
-back in sinus on cardizem drip: continue drip for now given swallowing issues (see below)
-requires monitoring of tele
-[id number] score = 4. Eventual eliquis 5mg bid: discussed with surgery, not ready yet.
-will stop ASA once eliquis started
-echo
Dysphagia
-going for video swallow today
-will remain on diltiazem drip pending results
Volvulus
-s/p sigmoidectomy and end colostomy 12/04/23
-per surgery
h/o CVA, hyperlipidemia
-cont ASA, statin
-will stop ASA once eliquis started
Physical Exam
Vital Signs/Labs
Vital Signs
Temp Pulse Resp BP Pulse Ox
98.0 F 68 18 133/74 92
12/07/23 07:10 12/07/23 07:10 12/07/23 07:10 12/07/23 07:10 12/07/23 07:10
12/07/23 06:20
12/07/23 06:20
PT 15.6 Sec (11.4-14.6) H 12/04/23 06:10
INR 1.26 12/04/23 06:10
APTT 25.4 Sec (23.4-35.0) 12/04/23 06:10
Magnesium 2.0 mg/dl (1.6-2.3) 12/06/23 06:25
LAB Results
12/06/23
09:55
Troponin I 0.018
Physical Exam
Constitutional: No acute distress
EENT: Moist mucous membranes
Cardiovascular: Rhythm & rate is regular, Pedal edema is absent, JVD pressure is normal and Systolic murmur absent
Respiratory: Respiratory effort normal and Lungs clear to auscul.
GI: Soft
Neuro/Psych: Oriented
Data Reviewed
-
Date of Service: December 07, 2023
EKG: Other (Tele: A fib-->NSR)
Labs: Labs Reviewed by me
[2023-12-07] MEDS: 0.45%NACL 1000 IV ×2 (10:02→22:40)
[2023-12-07 11:18] VITALS: BP 145/73
[2023-12-07 12:08] LABS: Urine Albumin Trace (Neg - Trace); Urine Bilirubin Negative (Negative); Urine Character Clear (Clear); Urine Color Yellow; Urine Glucose Negative (Negative); Urine Ketone 1+ (Negative); Urine Leukocyte Negative (Negative); Urine Nitrite Negative (Negative); Urine Occult Blood 2+ (Negative); Urine Specific Gravity 1.025 (<1.030); Urine Urobilinogen Negative (Neg - 1+)
--- NOTE | 2023-12-07 12:17 | W.PN.HOSP.TC ---
Today's Communication/Plan
-
Await decision regarding alternative means of nutrition
Keep n.p.o.
IV fluids
Assessment / Plan
Assessment / Plan
Gen-AAOx3, NAD
HEENT-NC, AT, anicteric, clear oral mm
Neck-supple
CV-reg, no M, +S1/S2
Lungs-clear B/L
Abd-soft, NT, ND
Ext-no edema
Musculoskeletal-no cyanosis, clubbing
Skin-warm and dry
Neuro-grossly non-focal
Psych-calm, cooperative
New onset atrial fibrillation -cardiology following. Eventual Eliquis when medically stable. Change to rectal aspirin.
Recurrent acute sigmoid volvulus--Distal sigmoid obstruction similar to that seen on the 12/01/2023 with dilated gas-filled colon measuring up to 8.5 cm---Last occurrence 12/01/23 (refused surgical intervention at that time)--went to OR 12/02 for flex
sigmoidoscopy and rectal tube--then had more pain with concern for bowel perf--taken back to OR again on 12/03 and had ex lap with sigmoidectomy and end colostomy.
Currently n.p.o. due to dysphagia, aspiration risk.
IV Zosyn x 7 days per general surgery, today is day 4.
Severe protein/calorie malnutrition--likely severe with cachexia, sunken features, muscle mass loss. Nutrition consulted. Etiology of malnutrition likely multifactorial including severe dysphagia.
Severe dysphagia -video swallowing study completed showing aspiration with thin and mildly thick liquids. Severe retention with pudding thick liquids. High risk for aspiration. Speech therapy recommends alternative means of nutrition such as a
PEG tube versus continuing a modified oral diet with the understanding of high risk for continued aspiration and reduced nutrition.
I am recommending a feeding tube for this patient given his severe malnutrition and severe dysphagia with high risk of ongoing aspiration. I had a long discussion with the patient as well as his on the phone with my recommendation. If he does
not want to pursue a feeding tube then recommend hospice as an option. He wants time to think about it. All questions answered.
HX CVA--No obvious residual deficits, no history of A-fib. Continue aspirin and Lipitor.
HX Glaucoma--Unilateral, left eye--Continue with timolol and latanoprost eyedrops
HX squamous cell carcinoma of tongue
Hearing loss--VERY HARD of HEARING even with hearing aides
DVT proph--scds
code status -- FULL CODE
Anticipated Discharge: > 48 hours
Subjective/Interval History
-
Date of Service: December 07, 2023
Patient seen and examined. No complaints currently.
Objective Data
-
Labs:
Laboratory Results
12/07/23
06:20
WBC 14.1 H
Hgb 14.7
Hct 43.2
Plt Count 165
Sodium 144
Potassium 3.7
Chloride 106
Carbon Dioxide 32 H
BUN 42 H
Creatinine 0.9
Glucose 102 H
Calcium 7.9 L
Total Bilirubin 1.2
AST 32
ALT 16
Alkaline Phosphatase 79
Vital Signs:
Vital Signs
Temp Pulse Resp BP Pulse Ox
97.7 F 67 18 145/73 96
12/07/23 11:18 12/07/23 11:18 12/07/23 11:18 12/07/23 11:18 12/07/23 11:18
I&O
12/06/23 12/07/23 12/08/23
06:59 06:59 06:59
Intake Total 2720 / 2720 2420 / 2420
Output Total 935 / 935 750 / 750
Balance 1785 / 1785 1670 / 1670
Review of Systems
-
History Source: Patient
All other systems: Reviewed and negative
[2023-12-07] MEDS: LOW STRENGTH ASPIRIN PO (12:25)
[2023-12-07 12:53] LABS: Urine Bacteria Few (Negative); Urine White Cell 0-2 /HPF (0-5)
--- NOTE | 2023-12-07 13:18 | CM ---
Placed a call to patient's spouse. She stated that she and patient want to discuss level of care (hospice) vrs, PEG and then rehab prior to any decisions being made (as attending just introduced idea of hospice). Patient's stated that she
thinks that maybe she would like a referral sent to [facility] [place], however she wants to discuss plan when she comes in to see patient later today.
Will need to f/u.
Plan: Case management will continue to follow and assist with discharge planning. Hospice vrs PEG tube and then possibly some rehab.
--- NOTE | 2023-12-07 14:28 | PTOTSP ---
Video Swallow Study
Summary: Patient with at least moderate oral and moderate-severe pharyngeal dysphagia. There was aspiration of thin liquids, mildly thick liquids, and pudding thick liquids with a liquid wash. Aspirate did not clear with cued coughing. There was
at most mod-severe pharyngeal residue greatest in pyriform sinuses with puree which reduced but did not clear with multiple swallows head/rotations.
Patient at an elevated risk for aspiration and at risk for choking with solids. Suspect this is acute on chronic dysphagia. Goals of care discussion warranted about nutrition/hydration as patient is at risk for aspiration/complications and at risk
for difficulty meeting nutrition/hydration via oral means. Options include 1) modified diet understanding aspiration risks vs 2) NPO and non-oral means.
Recommend:
1. Goals of care discussion about nutrition/hydration
2. Medications - via non-oral means if able
3. Oral care 3x daily
4. If opting for oral diet understanding aspiration risk: full liquid diet picking smooth purees and thinning down with liquids, thin liquids
5. Strategies: upright to 90 degrees, multiple hard swallows, intermittent cough/re-swallow, remain upright after PO for 30 minutes or greater
6. Aspiration risk hydration protocol - sips of water/ice chips after oral care
7. Dysphagia therapy at the acute care level and after D/C.
[2023-12-07 15:00] VITALS: BP 141/67
--- NOTE | 2023-12-07 15:28 | WOUNDNOTE ---
[facility] RN NOTE: Patient visited for ostomy appliance and midline incision change. Reviewed chart and spoke to RNPolly, patient and spouse. Per report ok to remove midline dressing. Reviewed pouch emptying with patient and spouse. Stoma is flush and
dark appearing. A picture of stoma was sent via TT to hospitalist, Dr. Good and Dr. Spencer. Small amount of stool emptied from pouch. Peristomal skin intact. Pouch changed with [place] barrier # [id number] and pouch # [id number]. [place] try [place] [id number] if there is leaking this pouch change. Midline incision talib dry and intact. Will continue to follow with patient and for ostomy teaching. LYNNE Matias given update on status of pouch change and stoma.
[2023-12-07] MEDS: ZOFRAN 4 MG IV (18:12)
--- NOTE | 2023-12-07 18:13 | PTCARENOTE ---
Addendum entered by Polly Merlos RN 12/07/23 19:29:
Dr. Good recommended NG tube placement. Dr. Good asked for this RN to ask if patient would agree to having NG tube placed. RN informed patient of Dr. Good's recommendation and patient refused NG tube placement. Dr. Good made aware of
patients refusal. production supervisor off shift RN, Karlee Reyes at bedside to witness refusal. Care ongoing at this time.
Original Note:
Patient vomiting large amount of green vomit. Zofran given. Dr. Good made aware. Care ongoing at this time.
[2023-12-07 20:33] VITALS: BP 138/73
[2023-12-07] MEDS: XALATAN OPHTHALMIC SOLUTION 1 DROP LEFT EYE (20:52)
[2023-12-07] MEDS: LIPITOR PO (21:30)
[2023-12-08] MEDS: CARDIZEM 125 IV ×2 (00:11→12:40)
[2023-12-08] MEDS: ZOSYN 50 IV ×5 (00:11→23:16)
[2023-12-08 03:04] VITALS: BP 117/70
[2023-12-08 06:36] LABS: % Basophils 0.4 % (0-2); % Eosinophils 0.9 % (0-6); % Immature Granulocytes 0.6 % (0-0.5); % Lymphocytes 10.6 % (20.5-51.1); % Monocytes 9.9 % (1.7-9.3); % Neutrophils 77.6 % (42.2-75.2); Absolute Basophils 0.1 10^3/uL (0-0.2); Absolute Eosinophils 0.1 10^3/uL (0-0.7); Absolute Immature Granulocytes 0.1 10^3/uL (0-0.05); Absolute Lymphocytes 1.2 10^3/uL (1.2-3.4); Absolute Monocytes 1.2 10^3/uL (0.1-0.6); Hematocrit 41.1 % (39.0-52.0); Hemoglobin 14.1 g/dL (13.0-18.0); Mean Corp Hgb Conc. 34.3 g/dL (33.0-37.0); Mean Corpuscular Hgb 31.8 pg (27.0-31.0); Mean Corpuscular Volume 92.8 fL (80.0-94.0); Nucleated Red Blood Cells % 0 % (-); Platelet Count 177 10^3/uL (130-400); Red Blood Cell Count 4.43 10^6/uL (4.70-6.10); Red Cell Dist. Width 13.8 % (11.5-14.5); White Blood Cell Count 11.6 10^3/uL (4.8-10.8)
[2023-12-08 07:01] LABS: ALT (SGPT) 21 U/L (0-50); AST (SGOT) 38 U/L (17-59); Albumin 2.6 g/dl (3.5-5.0); Alkaline Phosphatase 83 U/L (38-126); Blood Urea Nitrogen 41 mg/dl (9-20); Calcium 7.7 mg/dl (8.4-10.2); Carbon Dioxide 30 mmol/L (22-30); Chloride 110 mmol/L (98-107); Estimated Creatinine Clearance 67 ml/min; Glucose 106 mg/dl (70-99); Potassium 3.4 mmol/L (3.5-5.1); Sodium 143 mmol/L (135-145); Total Protein 4.9 g/dl (6.3-8.2); eGFR > 60.00
[2023-12-08 07:15] VITALS: BP 133/76
[2023-12-08] MEDS: HEPARIN 5000 UNITS SC ×2 (07:44→20:03)
[2023-12-08] MEDS: TIMOPTIC 0.5% OPHTHALMIC SOLUTION 1 DROP LEFT EYE ×2 (07:44→14:16)
--- NOTE | 2023-12-08 08:52 | W.PN.HOSP.TC ---
Today's Communication/Plan
-
Await decision regarding PEG
IV potassium
ENT consult
Assessment / Plan
Assessment / Plan
Gen-AAOx3, NAD
HEENT-NC, AT, anicteric, clear oral mm
Neck-supple
CV-reg, no M, +S1/S2
Lungs-clear B/L
Abd-soft, NT, ND
Ext-no edema
Musculoskeletal-no cyanosis, clubbing
Skin-warm and dry
Neuro-grossly non-focal
Psych-calm, cooperative
New onset atrial fibrillation -cardiology following. Eventual Eliquis when medically stable. Change to rectal aspirin.
Recurrent acute sigmoid volvulus--Distal sigmoid obstruction similar to that seen on the 12/01/2023 with dilated gas-filled colon measuring up to 8.5 cm---Last occurrence 12/01/23 (refused surgical intervention at that time)--went to OR 12/02 for flex
sigmoidoscopy and rectal tube--then had more pain with concern for bowel perf--taken back to OR again on 12/03 and had ex lap with sigmoidectomy and end colostomy.
Currently n.p.o. due to dysphagia, aspiration risk.
IV Zosyn x 7 days per general surgery, today is day 5.
Severe protein/calorie malnutrition--likely severe with cachexia, sunken features, muscle mass loss. Nutrition consulted. Etiology of malnutrition likely multifactorial including severe dysphagia.
Severe dysphagia -video swallowing study completed showing aspiration with thin and mildly thick liquids. Severe retention with pudding thick liquids. High risk for aspiration. Speech therapy recommends alternative means of nutrition such as a
PEG tube versus continuing a modified oral diet with the understanding of high risk for continued aspiration and reduced nutrition.
I am recommending a feeding tube for this patient given his severe malnutrition and severe dysphagia with high risk of ongoing aspiration. I had a long discussion with the patient as well as his on the phone with my recommendation. If he does
not want to pursue a feeding tube then recommend hospice as an option. He wants time to think about it. All questions answered.
Patient now requesting ENT consult for their opinion as well, consult placed. Currently does not have an ENT physician.
Hypokalemia -replete intravenously.
HX CVA--No obvious residual deficits, no history of A-fib. Continue aspirin and Lipitor.
HX Glaucoma--Unilateral, left eye--Continue with timolol and latanoprost eyedrops
HX squamous cell carcinoma of tongue
Hearing loss--VERY HARD of HEARING even with hearing aides
DVT proph--scds
code status -- FULL CODE
Anticipated Discharge: > 48 hours
Subjective/Interval History
-
Date of Service: December 08, 2023
Patient seen and examined. No new complaints.
Objective Data
-
Labs:
Laboratory Results
12/08/23
06:12
WBC 11.6 H
Hgb 14.1
Hct 41.1
Plt Count 177
Sodium 143
Potassium 3.4 L
Chloride 110 H
Carbon Dioxide 30
BUN 41 H
Creatinine 0.8
Glucose 106 H
Calcium 7.7 L
Total Bilirubin 1.0
AST 38
ALT 21
Alkaline Phosphatase 83
Vital Signs:
Vital Signs
Temp Pulse Resp BP Pulse Ox
98.0 F 79 18 133/76 96
12/08/23 07:15 12/08/23 07:15 12/08/23 07:15 12/08/23 07:15 12/08/23 07:15
I&O
12/07/23 12/08/23 12/09/23
06:59 06:59 06:59
Intake Total 2420 / 2420 2240 / 2240
Output Total 750 / 750 1022 / 1022 100 / 100
Balance 1670 / 1670 1218 / 1218 -100 / -100
Review of Systems
-
History Source: Patient
All other systems: Reviewed and negative
--- NOTE | 2023-12-08 08:52 | W.PN.CD ---
Today's Communication / Plan
-
- Eliquis 5 mg BID when able to.
Impression / Plan
-
New onset atrial fibrillation with RVR
-PAF - now in AF. Has RVR overnight: continue Dilt drip for now given swallowing issues (see below)
-requires monitoring of tele
-[id number] score = 4. Eventual eliquis 5mg bid: discussed with surgery, not ready yet.
-echo 12/07/23 Normal biventricular size and systolic function without regional wall motion abnormality.
Dysphagia
-Needs PEG tube for feeding and medications.
-will remain on diltiazem drip until PEG
Volvulus
-s/p sigmoidectomy and end colostomy 12/04/23
-per surgery
h/o CVA, hyperlipidemia
-on statin
-Swallowing issues - start Eliquis when able to
Physical Exam
Vital Signs/Labs
Vital Signs
Temp Pulse Resp BP Pulse Ox
98.0 F 79 18 133/76 96
12/08/23 07:15 12/08/23 07:15 12/08/23 07:15 12/08/23 07:15 12/08/23 07:15
12/08/23 06:12
12/08/23 06:12
PT 15.6 Sec (11.4-14.6) H 12/04/23 06:10
INR 1.26 12/04/23 06:10
APTT 25.4 Sec (23.4-35.0) 12/04/23 06:10
Magnesium 2.0 mg/dl (1.6-2.3) 12/06/23 06:25
LAB Results
12/06/23
09:55
Troponin I 0.018
Physical Exam
Constitutional: No acute distress, Comfortable and Other (hard of hearing. )
EENT: Anicteric and Moist mucous membranes
Cardiovascular: Pedal edema is absent, JVD pressure is normal, Systolic murmur absent and Rhythm/rate is irregular
Respiratory: Respiratory effort normal, Lungs clear to auscul. and Wheeze Absent
GI: Soft, Distention absent and Non tender
Neuro/Psych: Alert, Oriented and AO x 3
Data Reviewed
-
Date of Service: December 08, 2023
Medical Decision Making: Reviewed Test Results, Independent Historian Assessment, Test Interpretation and Review of Case with other Provider
EKG: Tracing Personally Visualized and interpreted
Echo: Report Reviewed by me
Labs: Labs Reviewed by me
Old Records: Reviewed
[2023-12-08] MEDS: KCL 270 MEQ IV (09:22)
[2023-12-08 09:53] LABS: Phosphorus 2.2 mg/dl (2.5-4.5)
--- NOTE | 2023-12-08 10:34 | W.PN.GS2 ---
Today's Communication / Plan
-
ENT consultation
GOC discussions
Assessment / Plan
-
82 yo male presenting with sigmoid volvulus with failed rectal decompression now POD #4 ex lap with sigmoidectomy and end colostomy, continues to complain of dysphagia and not feeling like eating.
AFVSS
Leukocytosis improving
Appliance brown stool
Voiding
Pain well managed, mild abdominal pain upon coughing
--Acute on Chronic dysphagia s/p tx for throat ca, TILLER WORKER consulted to follow, recommended IDDSI 6 diet but patient unable to tolerate, continuing with clear liquids due to persistent dysphagia, ENT consult today
--May benefit from feeding tube if c/w his GOC
--Multimodal analgesics as needed
--Stoma nurse consulted, input appreciated
--OOB/Ambulate. PT/OT consulted to follow. Did not ambulate much yesterday, stressed importance of ambulation
--Continue Zosyn treatment for 7 days course (On day 4)
--New instance of A-Fib, continue Cardizem as per Cardiology, input appreciated
--SCD's & Hep Sq for VTE ppx
Subjective Data
-
Date of Service: December 08, 2023
AFVSS, pain controlled, has not been able to take PO due to difficulty swallowing
Objective Data
-
Intake and Output
12/07/23 12/08/23 12/09/23
06:59 06:59 06:59
Intake Total 2420 / 2420 2240 / 2240
Output Total 750 / 750 1022 / 1022 200 / 200
Balance 1670 / 1670 1218 / 1218 -200 / -200
Intake:
Oral fluids 1120 / 1120
IV fluids (Total) 1200 / 1200 2040 / 2040
IV piggybacks 100 / 100 200 / 200
Output:
Emesis 150 / 150
Liquid stool amount 30 / 30
Colostomy
Drain Output (Total)
Right Middle Abdomen Christopher-
Shanks
Urine, Voided 600 / 600 970 / 970 200 / 200
Other:
Number of immeasurable emeses? 1
Number of unmeasured liquid
stools
Colostomy 1
Vital Signs
Temp Pulse Resp BP Pulse Ox
98.0 F 79 18 133/76 96
12/08/23 07:15 12/08/23 07:15 12/08/23 07:15 12/08/23 07:15 12/08/23 07:15
Lab Results
12/08/23 06:12
12/08/23 06:12
Calcium 7.7 mg/dl (8.4-10.2) L 12/08/23 06:12
Phosphorus 2.2 mg/dl (2.5-4.5) L 12/08/23 06:12
Magnesium 2.0 mg/dl (1.6-2.3) 12/08/23 06:12
Total Bilirubin 1.0 mg/dl (0.2-1.3) 12/08/23 06:12
AST 38 U/L (17-59) 12/08/23 06:12
ALT 21 U/L (0-50) 12/08/23 06:12
Alkaline Phosphatase 83 U/L (38-126) 12/08/23 06:12
Total Protein 4.9 g/dl (6.3-8.2) L 12/08/23 06:12
Albumin 2.6 g/dl (3.5-5.0) L 12/08/23 06:12
Physical Exam
-
Gen: NAD
Abd: aquacel OK, stoma purple, edematous, functioning with thick brown stool
[2023-12-08 11:10] VITALS: BP 134/75
[2023-12-08] MEDS: TORADOL 15 MG IV (12:49)
[2023-12-08] MEDS: 0.45%NACL 1000 IV (13:28)
[2023-12-08] MEDS: SODIUM PHOSPHATE 255 MEQ IV (14:16)
--- NOTE | 2023-12-08 14:35 | OR.RPT ---
Operative Report
Operative Report
Primary Surgeon: Rabia
Pre-op Diagnosis: Sigmoid volvulus, perforated viscus
Post-op Diagnosis: Same
Procedure Performed: Exploratory laparotomy, sigmoidectomy, end colostomy
Anesthesia Type: GETA
Specimen / Cultures: Sigmoid colon
Estimated Blood Loss: 5cc
Complications: None immediate
Operative Findings: Minimal contamination, thoroughly irrigated, rectal tube perforated the rectum, the rectum was transected below this point, about 10cm from the peritoneal reflection and tagged with a prolene stitch; the left ureter was
visualized and protected; ng tube verified in the stomach; sigmoid hyperemic and ratty at the torsion point but no necrosis, resected back to descending colon/sigmoid junction, descending colostomy created; 19 fr emile drain into the pelvis,
updated by phone
Date of Surgery: 12/04/23
Indications: 83M with recurrent sigmoid volvulus, unsuccessful endoscopic decompression with rectal tube placement and concern for perforated viscus. Plan was for exploratory laparotomy and possible bowel resection, possible colostomy.
Description of procedure: The patient was placed on the operating table in the supine position. General anesthesia was induced. A time-out was completed verifying correct patient, procedure,
site, positioning, and special equipment prior to beginning this procedure. An orogastric tube was placed. The abdomen was prepped and draped in the usual sterile fashion. An incision was made in the midline with bovie cut cautery and carried down
to the linea alba with cautery dissection. The linea alba was divided with cautery and the abdomen entered. The rectal tube was identified. Minimal contamination was noted. The tube was traced to the pelvis where a small perforation was noted in the
rectum. The rectal tube was then withdrawn transanally by the circulating nurse. The perforation was whip stitched closed with 2-0 silk and the abdomen was thoroughly irrigated with warm sterile saline. The small bowel was run from the ligament of
treitz to the terminal ileum and no injury or other pathology was identified. The colon was inspected from cecum to rectum. The sigmoid colon was erythematous and thickened but appeared viable. A healthy area of descending colon was identified and
transected with a DOMENIC 80mm purple load stapler. The sigmoid colon was carefully dissected off the pelvic sidewall. The left ureter was identified and protected. The rectum was transected below the area of injury, roughly 10cm from the reflection. A
voyant device was used to liberate the sigmoid colon from its mesentery and the specimen was passed off the table. An elliptical incision was made in the skin of the left upper quadrant. Subcutaneous fat was cored out with electrocautery. The fascia
was incised in cruciate fashion and the muscle fibers parted such that two fingers passed easily into the abdominal cavity. The transected end of the descending colon was gently passed through the defect and gently secured with a zeyad. The fascia
was closed with #1 PDS staratfix suture. The skin was closed with talib. The stoma was matured with 2-0 silk sutures. An aquacel dressing and an appliance were placed.
The patient tolerated the procedure well and was taken to the postanesthesia care unit in stable condition.
[2023-12-08 15:30] VITALS: BP 139/74
--- NOTE | 2023-12-08 15:39 | WOUNDNOTE ---
WOC RN note: Received verbal permission from patient to order [employer] Secure Start Kit. Kit ordered by this medical technical writer and will be sent to patients home.
--- NOTE | 2023-12-08 16:38 | PTOTSP ---
ST Follow-Up
Pt continues to present with moderately severe oropharyngeal dysphagia, as exhibited on VFSS yesterday. Pt's prognosis is guarded, given his medical hx and residual deficits.
Recommendations:
- NPO with ARHP - ice chips ONLY.
- PEG for alternative nutrition vs. comfort feeds.
- Pt can try dysphagia rehabilitation/tx if goals are restorative - however, pt's prognosis is guarded. Can consider repeat VFSS after a few weeks of dysphagia exercises.
- SKIP PIT WORKER to f/u while pt is admitted to continue to reinforce education and provide dysphagia tx.
- Pt would benefit from OP/HH SKIP PIT WORKER services upon d/c for dysphagia tx.
--- NOTE | 2023-12-08 19:10 | W.PN.ENT ---
Today's Communication
-
seen at bedside
Impression / Plan
-
The patient is interested in pursuing a feeding tube. I believe better nutrition may help his ability to swallow in addition to helping his general functional level
Subjective Data
-
asked to see patient with remote history of tongue cancer and dysphagia
patient states he is interested in getting a feeding tube
Objective Data
-
Vital Signs
Temp Pulse Resp BP Pulse Ox
97.8 F 72 16 139/74 96
12/08/23 15:30 12/08/23 15:30 12/08/23 15:30 12/08/23 15:30 12/08/23 15:30
Intake & Output
12/07/23 12/08/23 12/09/23
06:59 06:59 06:59
Intake:
Oral fluids 1120 / 1120
IV fluids (Total) 1200 / 1200 2040 / 2040 440 / 440
IV piggybacks 100 / 100 200 / 200 620 / 620
Output:
Emesis 150 / 150
Liquid stool amount
Colostomy
Drain Output (Total)
Right Middle Abdomen Christopher-
Shanks
Urine, Voided 600 / 600 970 / 970 400 / 400
Other:
Number of immeasurable emeses? 1
Number of unmeasured liquid
stools
Colostomy 1
Lab Results
12/08/23 06:12
12/08/23 06:12
PT 15.6 Sec (11.4-14.6) H 12/04/23 06:10
INR 1.26 12/04/23 06:10
APTT 25.4 Sec (23.4-35.0) 12/04/23 06:10
Calcium 7.7 mg/dl (8.4-10.2) L 12/08/23 06:12
Phosphorus 2.2 mg/dl (2.5-4.5) L 12/08/23 06:12
Magnesium 2.0 mg/dl (1.6-2.3) 12/08/23 06:12
Total Bilirubin 1.0 mg/dl (0.2-1.3) 12/08/23 06:12
AST 38 U/L (17-59) 12/08/23 06:12
ALT 21 U/L (0-50) 12/08/23 06:12
Alkaline Phosphatase 83 U/L (38-126) 12/08/23 06:12
Lipase 208 U/L (23-300) 12/03/23 14:34
Urine Color Yellow 12/07/23 11:47
Urine Clarity Clear (Clear) 12/07/23 11:47
Urine pH 6.0 (5.0-9.0) 12/07/23 11:47
Ur Specific [place] 1.025 (<1.030) 12/07/23 11:47
Urine Ketones 1+ (Negative) A 12/07/23 11:47
s/p bilateral radical neck dissection with dryness in mouth
Physical Exam
-
pt emaciated, s/p bilateral radical neck dissection
oral mucosa dry
flexible laryngoscopy- tongue defect with scarring, no evidence of tumor
Chest: Clear
Respiratory: Clear
Data Reviewed
-
Radiology Results: Report Reviewed and Image Reviewed
--- NOTE | 2023-12-08 19:16 | CON.MD ---
Consultation - Medical
-
I was asked to see this patient who has a remote history of base of tongue cancer which was treated with surgery, radiation therapy, and chemotherapy 15 to 20 years ago. He has been able to tolerate p.o.'s and swallow effectively enough that he did
not lose weight until about 6 or 7 months ago when he began to experience more problems. He was admitted with a sigmoid colon volvulus and had surgery. He currently has a colostomy. A feeding tube has been considered with the idea that it would
help his ability to obtain nutrition. Swallow studies showed evidence of aspiration and penetration. The patient has a remote history of a stroke as well 5 or 6 years ago but recovered and did not experience a significant decrease in his ability
to swallow after that.
Past medical history:
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
volvulus, history of new onset atrial fibrillation
Allergies: No known drug allergies
Medications: Aspirin 81 mg a day, atorvastatin 20 mg a day, docusate sodium 250 mg p.o. twice daily, latanoprost 1 drop left eye at night, polyethylene glycol 3 3 504 g p.o. daily
Timolol 1 drop in the left eye twice daily
Hospitalizations: The patient is currently hospitalized for sigmoid volvulus status post surgery. He currently has a colostomy. He has shown significant signs of dysphagia and inability to adequately obtain nutrition orally.
Past surgical history: The patient is status post sigmoid volvulus repair with colostomy recently, history of bilateral radical neck dissections and tongue resection for squamous cell carcinoma years ago
Family history: Asked and is noncontributory for this problem
Review of systems: Positive for dysphagia, negative for throat pain, positive for dryness and throat, negative for respiratory distress
Physical examination:
Head: Atraumatic and normocephalic
Eyes: Extraocular movements are intact and pupils are equal and reactive to light
Ears: Clear
Nose: The patient has a mild deviation of the septum but no evidence of infection
Oral cavity/oropharynx: The patient has significant mucosal dryness
Neck: The patient is status post radical neck dissection. There is no evidence of adenopathy
Thyroid gland: Normal
Salivary glands: No evidence of infection
Procedure: Flexible laryngoscopy was performed at the patient's bedside through the right nose. The patient tolerated this well. Good visualization was achieved. The patient was noted to have loss of tissue in the base of tongue with some
evidence of a tonicity/scarring. No evidence of residual or recurrent tumor was noted. There is not a great deal of pooling of secretions.
Swallow studies: Showed evidence of dysphagia with laryngeal penetration and mild aspiration
Impression: This patient is an 83-year-old gentleman who underwent surgery, radiation therapy and chemotherapy for a base of tongue cancer 15 to 20 years ago. He is now having significant problems with dysphagia. He feels this problem has
developed over the last 6 or 7 months. He has lost weight. His dysphagia is multifactorial. His tongue does not move normally because the tumor was replaced by scar tissue. He also has dryness in his mouth and has general debilitation and weight
loss which will exacerbate the dysphagia. I think he would benefit from a feeding tube. The patient agrees to have the feeding tube performed.
Plan: I think the patient would benefit from a feeding tube and he agrees to have this performed. He might also benefit from swallowing therapy with the speech and swallowing therapist. I will plan on seeing the patient back in the office as
needed if she has further problems.
[2023-12-08 19:41] VITALS: BP 137/78
[2023-12-08] MEDS: LIPITOR PO ×2 (21:33→21:50)
[2023-12-08] MEDS: XALATAN OPHTHALMIC SOLUTION 1 DROP LEFT EYE (22:00)
[2023-12-08 23:42] VITALS: BP 135/78
[2023-12-09] VITALS (11 sets, daily range): BP systolic 126–160; BP diastolic 68–94; PULSE 84; O2SAT 92
[2023-12-09] MEDS: CARDIZEM 125 IV ×2 (01:02→12:31)
[2023-12-09] MEDS: ZOSYN 50 IV ×3 (05:16→17:50)
--- NOTE | 2023-12-09 05:27 | PTCARENOTE ---
pre-op wipes completed, linens, gown changed for new peg tube.
[2023-12-09] MEDS: DILAUDID 0.5 MG IV ×2 (05:47→12:26)
[2023-12-09] MEDS: 0.45%NACL 1000 IV (06:52)
--- NOTE | 2023-12-09 07:09 | CON.GI ---
Addendum entered and electronically signed by Guille Oneal DO 12/09/23 09:44:
I saw and examined the patient.
The PULP MAKER's note was reviewed and I agree with the note.
Comment: This is an 83 y.o male with extensive medical history as outlined below including prior tongue cancer (SCC s/p prior chemo/XRT) and prior surgery, chronic dysphagia who was admitted on 12/02 and found to have an acute sigmoid volvulus with
failed endoscopic decompression s/p ex-lap and sigmoidectomy w/ end colostomy. Gastroenterology has been consulted for PEG placement. Of note, patient reports having a previous PEG placed about 20 years ago (unable to locate records regarding this).
Suspect acute on chronic dysphagia with marked worsening dysphagia (likely multifactorial) along with marked deconditioning/cachexia with BMI 18. Reviewed recent ENT evaluation as well regarding recent flexible laryngoscopy (12/07) without concern for
recurrent tumor of tongue, only scar. Patient wishes to pursue PEG placement and in line with his GOC which we discussed this AM. Discussed with surgery as well given his recent abdominal surgeries and concern for limited endoscopic window for PEG
placement and have requested surgical assistance as well. He remains on IV Zosyn and no need for additional abx ppx prior to procedure. Aditionally, found to have new A Fib w/ RVR now controlled on Dilt gtt. Remains off a/c and appreciate Cardiology
recommendations. Okay to continue ASA 81 mg if needed as does not need to be interrupted from GI standpoint. Will attempt EGD for PEG placement for this afternoon, if unable to fit in schedule will coordinate tomorrow on 12/09 prior to weekend. Rest
of care and plan as outlined below.
Original Note:
Consultation
-
Date/Time Consultation Requested: 12/08/23 1215
Date/Time Consultation Performed: 12/09/23 0830
Requesting Provider: Loi Salas DO
Performing Provider: PAWEL Castro, Guille Oneal DO
Reason for Consultation: peg evaluation
Medical History
Chief Complaint / HPI
Chief Complaint: abd pain
History of Present Illness:
Pt is an 83yo with afib, squamous cell CA with prior chemo, radiation and prior surgery 17 years ago, CVA, HTN, hypercholesterolemia, chronic dysphagia with admission 12/02 with sigmoid volvulus with failed decompression for sigmoid volvulus with
exp lap and sigmoidectomy with end colonostomy. Post-op he is noted with worsening dysphagia and asked to see for peg tube. BMI 18.3 around baseline since May.
In reviewing with patient noted with chronic dysphagia. Over last 6-12 months worsening symptoms and now post op symptoms even worse. He has been seen by ENT and speech therapy and recommended peg. He has new afib followed by cards and cleared
to proceed. Pt admits to chronic dry mouth and cough with eating. He denies GERD, nausea, vomiting, minimal post op pain, no hx diarrhea, constipation, blood or black in stools.
Past Medical History
Past Medical History: Arrhythmias (afib), Cancer (chemo/rad/surgery- squamous cell CA of tongue ), CVA, HTN, Hypercholesterolemia and Other (glaucoma, dysphagia, severe protein calorie malnutrition, sigmoid volulus)
Past Surgical History: Other (tongue cancer, prior peg 17 years ago )
Social History
Tobacco: Non-Smoker
Alcohol: None
Drug: None
Personal:
Living: With Family
Employment: Retired
Family History
Family History: Reviewed & Not Pertinent
Allergies / Home Medications
Allergy/AdvReac Type Severity Reaction Status Date / Time
No Known Allergies Allergy Verified 12/03/23 14:20
�Medication �Instructions �Recorded
aspirin 81 mg chewable tablet 81 mg PO DAILY Blood Clot 12/01/23
Prevention/Tx
atorvastatin 20 mg tablet 20 mg PO HS High Cholesterol 12/01/23
latanoprost 0.005 % eye drops 1 drp LEFT EYE HS Eye Condition 12/01/23
timolol maleate 0.5 % eye drops 1 drp LEFT EYE BID@0800,1400 Eye 12/01/23
Condition
docusate sodium 250 mg capsule 250 mg PO BID Volvulus 1 month #60 12/02/23
caps
polyethylene glycol 3350 17 4 g PO DAILY Volvulus 1 month #120 12/02/23
gram/dose oral powder (Miralax) grams
Review of Systems
-
History Source: Patient
Constitutional: Reports Weight Loss (over time )
EENT: Reports No Symptoms and Other (dysphagia )
Respiratory: Reports Cough
Abdomen/GI: Reports Abdominal Pain (minimal ) and Other (ostomy with brown output== prior peg site near ostomy )
: Reports No Symptoms
Musculoskeletal: Reports No Symptoms
Skin: Reports No Symptoms
Neurological: Reports Weakness
Endocrine: Reports No Symptoms
Hematologic/Lymphatic: Reports No Symptoms
Vital Signs
Temp Pulse Resp BP Pulse Ox
97.6 F 81 18 134/76 94
12/09/23 02:54 12/09/23 02:54 12/09/23 02:54 12/09/23 02:54 12/09/23 02:54
Physical Exam
Exam
General: Other (thin appearing )
HEENT: Normocephalic and Anicteric
Respiratory: Clear
Cardiac: Regular Rhythm
GI: Soft, Non Distended, Tender (minimal ) and Other (ostomy with brown output )
Genito-urinary: No Costovertebral Tender
Musculoskeletal: No Clubbing and No Cyanosis
Skin: Warm and Dry
Neuro: Awake, Alert, AO x 3 and Other (thick speech with hx tongue CA)
Psych: Calm
Results
WBC 11.6 10^3/uL (4.8-10.8) H 12/08/23 06:12
Hgb 14.1 g/dL (13.0-18.0) 12/08/23 06:12
Hct 41.1 % (39.0-52.0) 12/08/23 06:12
MCV 92.8 fL (80.0-94.0) 12/08/23 06:12
Plt Count 177 10^3/uL (130-400) 12/08/23 06:12
Absolute Neuts (auto) 9.0 10^3/uL (1.4-6.5) H 12/08/23 06:12
PT 15.6 Sec (11.4-14.6) H 12/04/23 06:10
INR 1.26 12/04/23 06:10
APTT 25.4 Sec (23.4-35.0) 12/04/23 06:10
Sodium 143 mmol/L (135-145) 12/08/23 06:12
Potassium 3.4 mmol/L (3.5-5.1) L 12/08/23 06:12
Chloride 110 mmol/L (98-107) H 12/08/23 06:12
Carbon Dioxide 30 mmol/L (22-30) 12/08/23 06:12
BUN 41 mg/dl (9-20) H 12/08/23 06:12
Creatinine 0.8 mg/dL (0.7-1.3) 12/08/23 06:12
Calcium 7.7 mg/dl (8.4-10.2) L 12/08/23 06:12
Total Bilirubin 1.0 mg/dl (0.2-1.3) 12/08/23 06:12
AST 38 U/L (17-59) 12/08/23 06:12
ALT 21 U/L (0-50) 12/08/23 06:12
Alkaline Phosphatase 83 U/L (38-126) 12/08/23 06:12
Lipase 208 U/L (23-300) 12/03/23 14:34
Diagnostic Image Results:
12/04/23 CT Abd/pel Without Iv Or Oral
1. Rectal tube, at least a portion of which is extraluminal, indicative of bowel perforation. Moderate amount of free intraperitoneal air.
2. Small amount of pelvic free fluid.
Prior GI Procedures:
EGD: ? 17 years ago
flex 11/30 jase Impression:
- Preparation of the colon was fair.
- Probable volvulus. Partial decompression achieved.
- No specimens collected.
flex Protano partial decompression was achieved.
- Preparation of the colon was poor.
- Dilated in the sigmoid colon.
- Melanosis in the colon.
- No specimens collected.
Assessment / Plan
-
Pt is an 83yo with afib, squamous cell CA with prior chemo, radiation and prior surgery 17 years ago, CVA, HTN, hypercholesterolemia, chronic dysphagia with admission 12/02 with sigmoid volvulus with failed decompression for sigmoid volvulus with exp
lap and sigmoidectomy with end colostomy. Post-op he is noted with worsening dysphagia last 6-12 months and asked to see for peg tube. BMI 18.3 around baseline since May.
-worsening dysphagia
-s/p sigmoid volulus with failed decompression for sigmoid volvulus with exp lap and sigmoidectomy with end colostomy
-hx tongue CA with prior chemo/radiation/surgery
-hx CVA
-new afib
PLAN:
- plan for peg today if able to do wtih scheduling vs tomorrow
reviewed with surgical team with recent surgical intervention
NPO
risk benefits reviewed with patient
s/p ENT and speech eval as noted
pt cleared by cards with new afib during admission eventual eliquis after clear post procedure
updated nursing staff
-
-
Thank you for consultation and allowing me to participate in the patient's care. Please call the soil conservationist GI physician during the after hours with any questions or concerns.
[2023-12-09 07:28] LABS: Blood Urea Nitrogen 38 mg/dl (9-20); Calcium 7.6 mg/dl (8.4-10.2); Carbon Dioxide 24 mmol/L (22-30); Chloride 107 mmol/L (98-107); Estimated Creatinine Clearance 67 ml/min; Glucose 96 mg/dl (70-99); Phosphorus 2.6 mg/dl (2.5-4.5); Potassium 3.5 mmol/L (3.5-5.1); Sodium 145 mmol/L (135-145); eGFR > 60.00
[2023-12-09] MEDS: HEPARIN 5000 UNITS SC ×2 (07:47→19:52)
[2023-12-09] MEDS: TIMOPTIC 0.5% OPHTHALMIC SOLUTION 1 DROP LEFT EYE ×2 (07:47→14:19)
--- NOTE | 2023-12-09 08:11 | W.PN.CD ---
Today's Communication / Plan
-
continue diltiazem drip
eventual eliquis 5mg bid: to start after PEG
-to stop ASA once eliquis started
stable from cardiac perspective for PEG
Impression / Plan
-
New onset atrial fibrillation with RVR: paroxysmal
-echo 12/07/23 Normal biventricular size and systolic function without regional wall motion abnormality.
-mostly in SR with PVC's
-continue diltiazem drip, which requires monitoring on tele
-to transition to pills via PEG once able
-[id number] score = 4. Eventual eliquis 5mg bid: to start after PEG
-to stop ASA once eliquis started
Dysphagia
-Needs PEG tube for feeding and medications.
-will remain on diltiazem drip until PEG
-stable from cardiac perspective for PEG
Volvulus
-s/p sigmoidectomy and end colostomy 12/04/23
-per surgery
h/o CVA, hyperlipidemia
-on statin, ASA
-Swallowing issues - start Eliquis when able to
-stop ASA once eliquis started
Physical Exam
Vital Signs/Labs
Vital Signs
Temp Pulse Resp BP Pulse Ox
97.5 F 77 18 139/72 97
12/09/23 07:25 12/09/23 07:25 12/09/23 07:25 12/09/23 07:25 12/09/23 07:25
12/08/23 06:12
12/09/23 06:11
PT 15.6 Sec (11.4-14.6) H 12/04/23 06:10
INR 1.26 12/04/23 06:10
APTT 25.4 Sec (23.4-35.0) 12/04/23 06:10
Magnesium 2.0 mg/dl (1.6-2.3) 12/09/23 06:11
LAB Results
12/06/23
09:55
Troponin I 0.018
Physical Exam
Constitutional: No acute distress and Comfortable
EENT: Moist mucous membranes
Cardiovascular: Rhythm & rate is regular, Pedal edema is absent, JVD pressure is normal and Systolic murmur absent
Respiratory: Respiratory effort normal and Lungs clear to auscul.
GI: Soft
Neuro/Psych: Alert and Oriented
Data Reviewed
-
Date of Service: December 09, 2023
EKG: Other (Tele: SR, parox A fib, PVC's, rate related IVCD)
Echo: Report Reviewed by me
Labs: Labs Reviewed by me
--- NOTE | 2023-12-09 09:44 | W.PN.GS2 ---
Addendum entered and electronically signed by Theron Ceron MD 12/09/23 11:02:
pt seen and examined with resident
agree with documented progress note.
pt denies any new pains or symptoms
agreeable to PEG given dysphagia limiting PO intake
AFVSS
ABD: soft ND, mild TTP at incision site. L ostomy functional
Plan: for PEG today, will provide assistance with GI
Original Note:
Today's Communication / Plan
-
Patient planned to get PEG tube via GI either later today or tomorrow
Assessment / Plan
-
82 yo male presenting with sigmoid volvulus with failed rectal decompression now POD #5 ex lap with sigmoidectomy and end colostomy, continues to complain of dysphagia and not feeling like eating. Patient talked with ENT yesterday and is amenable to
getting feeding tube.
AFVSS
Leukocytosis improving
Appliance brown stool
Voiding
Pain well managed, mild abdominal pain upon coughing
--Acute on Chronic dysphagia s/p tx for throat ca, TOOLROOM CHECKER consulted to follow, recommended IDDSI 6 diet but patient unable to tolerate, continuing with clear liquids due to persistent dysphagia, ENT consulted yesterday, input appreciated, PEG tube
recommended
--Consulted GI, input appreciated- Feeding tube planned for either later today or tomorrow. Assistance from surgery team as required.
--Multimodal analgesics as needed
--Stoma nurse consulted, input appreciated
--OOB/Ambulate. PT/OT consulted to follow. Did not ambulate much yesterday, stressed importance of ambulation
--Continue Zosyn treatment for 7 days course (On day 5)
--New instance of A-Fib, continue Cardizem as per Cardiology, input appreciated
--SCD's & Hep Sq for VTE ppx
Subjective Data
-
Date of Service: December 09, 2023
Patient has been feeling better, just had some abdominal pain over night which improved after receiving pain medication. Patient was able to ambulate around his room but did not have the energy to go walk in the hallway. Patient says he wants to get
the feeding tube as soon as possible so that he get some nutrition can feel more energetic.
Objective Data
-
Intake and Output
12/08/23 12/09/23 12/10/23
06:59 06:59 06:59
Intake Total 2240 / 2240 2240 / 2240
Output Total 1022 / 1022 601 / 601
Balance 1218 / 1218 1639 / 1639
Intake:
IV fluids (Total) 2040 / 2040 1400 / 1400
IV piggybacks 200 / 200 840 / 840
Output:
Liquid stool amount 30 / 30
Colostomy 30 / 30
Drain Output (Total)
Right Middle Abdomen Christopher-
Shanks
Urine, Voided 970 / 970 600 / 600
Other:
Number of immeasurable emeses? 1
Number of unmeasured liquid
stools
Colostomy 1
Vital Signs
Temp Pulse Resp BP Pulse Ox
97.5 F 77 18 139/72 97
12/09/23 07:25 12/09/23 07:25 12/09/23 07:25 12/09/23 07:25 12/09/23 07:25
Lab Results
12/08/23 06:12
12/09/23 06:11
Calcium 7.6 mg/dl (8.4-10.2) L 12/09/23 06:11
Phosphorus 2.6 mg/dl (2.5-4.5) 12/09/23 06:11
Magnesium 2.0 mg/dl (1.6-2.3) 12/09/23 06:11
Total Bilirubin 1.0 mg/dl (0.2-1.3) 12/08/23 06:12
AST 38 U/L (17-59) 12/08/23 06:12
ALT 21 U/L (0-50) 12/08/23 06:12
Alkaline Phosphatase 83 U/L (38-126) 12/08/23 06:12
Total Protein 4.9 g/dl (6.3-8.2) L 12/08/23 06:12
Albumin 2.6 g/dl (3.5-5.0) L 12/08/23 06:12
Physical Exam
-
Gen: NAD
COWLITZ
Abd: aquacel OK, Stoma functioning with thick brown stool, non-tender abdomen
PAULA drain- serosanguineous fluid
--- NOTE | 2023-12-09 11:21 | CM ---
CM following re: discharge planning.
Reviewed pt's chart, met with pt and spoke to pt's spouse Yu.
Per chart review, pt's family preferred peg tube placement and per Surgery PEG tube via GI either later today or tomorrow.
PT and OF have been recommending SNF level of care. CM discussed with pt's spouse options of SNFs. A list of SNFs provided to pt's spouse. Pt's spouse requested [facility]' home and spouse has been notified that they do not accept [facility].
Following SNFs preferred: [facility], [facility], [facility], [facility]. A referral to above SNFs will be made after Peg tube placement and updated clinical regarding peg tube.
Pt's spouse confirmed that pt had peg tube in the past, she knows how to care and per spouse she will bring the pt hoe after the completion of a short term rehab.
D/C plan: preferred SNF.
CM will follow to assist pt with discharge to a preferred SNF.
--- NOTE | 2023-12-09 11:45 | PTCARENOTE ---
Patient notified RN of right sided chest pain; Patient denies N/V, feeling SOB, only complains of right sided chest pain and feeling 'not right'; Attending hospitalist and residential coordinator aware; EKG completed; Troponin's ordered by attending; Per
patient chest pain was relieved following EKG being completed; Care ongoing
--- NOTE | 2023-12-09 11:48 | W.PN.HOSP.TC ---
Today's Communication/Plan
-
Troponin
IV KCl
Assessment / Plan
Assessment / Plan
Gen-AAOx3, NAD
HEENT-NC, AT, anicteric, clear oral mm
Neck-supple
CV-reg, no M, +S1/S2
Lungs-clear B/L
Abd-soft, NT, ND
Ext-no edema
Musculoskeletal-no cyanosis, clubbing
Skin-warm and dry
Neuro-grossly non-focal
Psych-calm, cooperative
New onset atrial fibrillation -cardiology following. Remains on Cardizem drip for rate control. Eventual Eliquis when medically stable. Continue rectal aspirin. Once PEG tube has been placed can convert meds to the tube.
Recurrent acute sigmoid volvulus--Distal sigmoid obstruction similar to that seen on the 12/01/2023 with dilated gas-filled colon measuring up to 8.5 cm---Last occurrence 12/01/23 (refused surgical intervention at that time)--went to OR 12/02 for flex
sigmoidoscopy and rectal tube--then had more pain with concern for bowel perf--taken back to OR again on 12/03 and had ex lap with sigmoidectomy and end colostomy.
Currently n.p.o. due to dysphagia, aspiration risk.
IV Zosyn x 7 days per general surgery, today is day 5.
Severe protein/calorie malnutrition--likely severe with cachexia, sunken features, muscle mass loss. Nutrition consulted. Etiology of malnutrition likely multifactorial including severe dysphagia.
Severe dysphagia -video swallowing study completed showing aspiration with thin and mildly thick liquids. Severe retention with pudding thick liquids. High risk for aspiration.
ENT input noted. Patient now agreeable to PEG tube placement. Awaiting GI to schedule.
Hypokalemia -replete intravenously. Magnesium is normal. QTc interval noted to be prolonged, hopefully will improve with continued repletion.
Hypophosphatemia -improved.
HX CVA--No obvious residual deficits, no history of A-fib. Continue aspirin and Lipitor.
HX Glaucoma--Unilateral, left eye--Continue with timolol and latanoprost eyedrops
HX squamous cell carcinoma of tongue
Hearing loss--VERY HARD of HEARING even with hearing aides
DVT proph--scds
code status -- FULL CODE
After my visit with the patient today nurse informed me of substernal chest pain that lasted a few minutes. EKG without appreciable changes but now back to sinus rhythm with first-degree AV block and fusion complexes, PACs. QTc prolonged, check
troponins.
Anticipated Discharge: > 48 hours
Subjective/Interval History
-
Date of Service: December 09, 2023
Patient seen and examined. No complaints.
Objective Data
-
Labs:
Laboratory Results
12/09/23
06:11
Sodium 145
Potassium 3.5
Chloride 107
Carbon Dioxide 24
BUN 38 H
Creatinine 0.8
Glucose 96
Calcium 7.6 L
Vital Signs:
Vital Signs
Temp Pulse Resp BP Pulse Ox
97.5 F 77 18 139/72 97
12/09/23 07:25 12/09/23 07:25 12/09/23 07:25 12/09/23 07:25 12/09/23 07:25
I&O
12/08/23 12/09/23 12/10/23
06:59 06:59 06:59
Intake Total 2240 / 2240 2240 / 2240
Output Total 1022 / 1022 601 / 601
Balance 1218 / 1218 1639 / 1639
Review of Systems
-
History Source: Patient
All other systems: Reviewed and negative
[2023-12-09] MEDS: KCL 270 MEQ IV (12:18)
[2023-12-09 13:31] LABS: Troponin I < 0.012 ng/ml
--- NOTE | 2023-12-09 15:11 | PTCARENOTE ---
Report given to GI nut sifter; Diltiazem gtt infusing; Potassium IV repletion infusing; GI nut sifter aware; Patient ambulated to stretcher and sent to GI Lab with spouse present
--- NOTE | 2023-12-09 16:03 | W.PN.SURGUPD ---
Addendum entered and electronically signed by Theron Ceron MD 12/09/23 16:11:
#[id number]
Original Note:
Surgical Update
Surgical Update
20 Fr pull PEG tube placed with GI assistance for upper endoscopy.
see GI report for additional endoscopic findings
cap PEG tonight, start trickle feeds tomorrow AM
--- NOTE | 2023-12-09 17:31 | PTCARENOTE ---
Patient received from PACU in stretcher; Ambulated to bed; PEG tube in place; Call baker within reach; Spouse at bedside; Assessment ongoing
[2023-12-09] MEDS: ANCEF 5 IV (17:50)
[2023-12-09 19:44] LABS: Troponin I < 0.012 ng/ml
[2023-12-09] MEDS: PROTONIX IV 40 MG IV (19:53)
[2023-12-09] MEDS: NSS (PRESERVATIVE FREE) 10 ML IV (19:53)
[2023-12-09] MEDS: XALATAN OPHTHALMIC SOLUTION 1 DROP LEFT EYE (21:56)
[2023-12-09] MEDS: LIPITOR PO (21:56)
[2023-12-10] MEDS: ZOSYN 50 IV ×4 (00:14→17:07)
[2023-12-10 01:02] LABS: Troponin I < 0.012 ng/ml
[2023-12-10] MEDS: CARDIZEM 125 IV (01:22)
[2023-12-10 03:10] VITALS: BP 134/74
[2023-12-10 07:01] VITALS: BP 133/76
--- NOTE | 2023-12-10 07:01 | W.PN.GI.CBS2 ---
Addendum entered and electronically signed by Guille Oneal DO 12/10/23 08:38:
I saw and examined the patient.
The PAINTER DECORATOR's note was reviewed and I agree with the note. Inpatient GI team will sign-off. Please call back with any questions or concerns.
Original Note:
Today's Communication / Plan
-
s/p peg -- doing well post procedure but anxious for tube feeds to start
tube intact at 3.5 at bumper no bleeding or redness noted
await tube feed recs-- reviewed with knapsack sprayer
ok to use tube for meds and feeds
await AM mag, phos and K prior to starting feed
reviewed with surgical services asst for tube feed start
plan likely SNF but to be determined per patient-- added 3-4 week GI follow up
will sign off -- call if any tube feed intolerance or issues
Assessment / Plan
-
Pt is an 83yo with afib, squamous cell CA with prior chemo, radiation and prior surgery 17 years ago, CVA, HTN, hypercholesterolemia, chronic dysphagia with admission 12/02 with sigmoid volvulus with failed decompression for sigmoid volvulus with exp
lap and sigmoidectomy with end colostomy. Post-op he is noted with worsening dysphagia last 6-12 months and asked to see for peg tube. BMI 18.3 around baseline since May.
-worsening dysphagia
-s/p sigmoid volulus with failed decompression for sigmoid volvulus with exp lap and sigmoidectomy with end colostomy
-hx tongue CA with prior chemo/radiation/surgery
-hx CVA
-new afib
PLAN:
s/p peg -- doing well post procedure but anxious for tube feeds to start
tube intact at 3.5 at bumper no bleeding or redness noted
await tube feed recs-- reviewed with knapsack sprayer
ok to use tube for meds and feeds
await AM mag, phos and K prior to starting feed
reviewed with surgical services asst for tube feed start
plan likely SNF but to be determined per patient-- added 3-4 week GI follow up
will sign off -- call if any tube feed intolerance or issues
Subjective
Subjective
Date of Service: December 10, 2023
Pt very anxious to start tube feed, frustrated with ongoing admission
Objective
Data Reviewed
Laboratory Data:
Laboratory Results
12/08/23 06:12
Laboratory Results
PT 15.6 Sec (11.4-14.6) H 12/04/23 06:10
INR 1.26 12/04/23 06:10
APTT 25.4 Sec (23.4-35.0) 12/04/23 06:10
Phosphorus 2.6 mg/dl (2.5-4.5) 12/09/23 06:11
Magnesium 2.0 mg/dl (1.6-2.3) 12/09/23 06:11
Total Bilirubin 1.0 mg/dl (0.2-1.3) 12/08/23 06:12
AST 38 U/L (17-59) 12/08/23 06:12
ALT 21 U/L (0-50) 12/08/23 06:12
Alkaline Phosphatase 83 U/L (38-126) 12/08/23 06:12
Lipase 208 U/L (23-300) 12/03/23 14:34
Vital Signs and I&O:
Vital Signs
Temp Pulse Resp BP Pulse Ox
97.4 F 78 16 134/74 98
12/10/23 03:10 12/10/23 03:10 12/10/23 03:10 12/10/23 03:10 12/10/23 03:10
I&O
12/09/23 12/10/23 12/11/23
06:59 06:59 06:59
Intake Total 2240 / 2240 1790.0 / 1790.0
Output Total 601 / 601 680 / 680
Balance 1639 / 1639 1110.0 / 1110.0
Physical Exam
Physical Exam
HEENT: Anicteric and Moist mucous membranes
Cardiology: Normal Sinus Rhythm
Pulmonary: Clear
GI: Soft, Non Distended and Tender (mild around peg tube midline incision intact, ostomy with brown stool)
Extremities: No Edema
Neuro: Other (anxious about continued admission )
--- NOTE | 2023-12-10 07:36 | W.PN.GS2 ---
Addendum entered and electronically signed by Theron Ceron MD 12/10/23 14:35:
Patient seen and examined in follow-up this afternoon with surgical AIRSET MOLDER.
Patient sitting in chair at bedside. at bedside as well.
Offers no specific complaints.
Discomfort after PEG tube minimal
No nausea
Ostomy functioning
AFVSS
ABD: Soft, nondistended, minimal tenderness on palpation.
Midline laparotomy incision with talib clean, no drainage, no erythema
PAULA with light serosanguineous fluid
Ostomy functional with liquid stool
PEG tube in place
Assessment/plan: Trickle tube feeds started, advance as tolerated tomorrow to goal and eventually may give bolus feeding rather than continuous
Zosyn for #6 of 7-day total course
Resume oral therapeutic anticoagulation tomorrow, 09/10/2023
Original Note:
Today's Communication / Plan
-
Patient to start on trickle tube feeds, continue monitoring electrolytes.
Assessment / Plan
-
82 yo male presenting with sigmoid volvulus with failed rectal decompression now POD #6 ex lap with sigmoidectomy and end colostomy had PEG tube placed yesterday. Tube feeding to begin later today.
AFVSS
Leukocytosis improving
Appliance brown stool
Voiding
Pain well managed, mild abdominal pain upon coughing
--Consulted GI, input appreciated- Feeding tube placed yesterday with assistance from surgery team -> Tube intact
--PEG tube okay to be used for meds and feeding -> Patient started on trickle feeds
--insurance claims clerk consulted, input appreciated- awaiting tube feed recommendations
--awaiting labs prior to starting feeds (Mag, Phos, K)- slow feeds to avoid refeeding syndrome
--Multimodal analgesics as needed
--Stoma nurse consulted, input appreciated
--OOB/Ambulate. PT/OT consulted to follow. Has not been ambulating due to lack of energy
--Continue Zosyn treatment for 7 days course (On day 6)
--New instance of A-Fib, continue Cardizem as per Cardiology, input appreciated-> can switch to PO meds with PEG tube
--SCD's & Hep Sq for VTE ppx
Subjective Data
-
Date of Service: December 10, 2023
Patient has been feeling well, just a bit anxious to get his tube feeds started as he wants to feel more energetic again. Patient says the area around the new tube is a bit sore but nothing too concerning for him. Patient has not been ambulating
much due to his lack of energy.
Objective Data
-
Intake and Output
12/09/23 12/10/23 12/11/23
06:59 06:59 06:59
Intake Total 2240 / 2240 1790.0 / 1790.0
Output Total 601 / 601 680 / 680
Balance 1639 / 1639 1110.0 / 1110.0
Intake:
Oral fluids 360 / 360
IV fluids (Total) 1400 / 1400 930.0 / 930.0
0.45 NS 70 / 70
Cardizem 10.0 / 10.0
NS 50 / 50
IV piggybacks 840 / 840 470 / 470
Amount instilled into GI Tube ( 30 / 30
Total)
Gastrostomy 30 / 30
Output:
Liquid stool amount 10 / 10
Colostomy 10 / 10
Drain Output (Total)
Right Middle Abdomen Christopher-
Shanks
Gastrointestinal tube output ( 0 / 0
Total)
Gastrostomy 0 / 0
Urine, Voided 600 / 600 650 / 650
Vital Signs
Temp Pulse Resp BP Pulse Ox
97.4 F 78 16 134/74 98
12/10/23 03:10 12/10/23 03:10 12/10/23 03:10 12/10/23 03:10 12/10/23 03:10
Lab Results
12/08/23 06:12
Calcium 7.6 mg/dl (8.4-10.2) L 12/09/23 06:11
Phosphorus 2.6 mg/dl (2.5-4.5) 12/09/23 06:11
Magnesium 2.0 mg/dl (1.6-2.3) 12/09/23 06:11
Total Bilirubin 1.0 mg/dl (0.2-1.3) 12/08/23 06:12
AST 38 U/L (17-59) 12/08/23 06:12
ALT 21 U/L (0-50) 12/08/23 06:12
Alkaline Phosphatase 83 U/L (38-126) 12/08/23 06:12
Total Protein 4.9 g/dl (6.3-8.2) L 12/08/23 06:12
Albumin 2.6 g/dl (3.5-5.0) L 12/08/23 06:12
Physical Exam
-
AFVSS
NAD
[place]
ABD: soft ND, mild TTP at incision site. L ostomy functional, PEG tube in place
PAULA drain- serosanguineous fluid
[2023-12-10 08:19] LABS: Blood Urea Nitrogen 31 mg/dl (9-20); Calcium 7.8 mg/dl (8.4-10.2); Carbon Dioxide 25 mmol/L (22-30); Chloride 107 mmol/L (98-107); Estimated Creatinine Clearance 77 ml/min; Glucose 85 mg/dl (70-99); Magnesium 1.9 mg/dl (1.6-2.3); Phosphorus 2.5 mg/dl (2.5-4.5); Potassium 3.7 mmol/L (3.5-5.1); Sodium 144 mmol/L (135-145); eGFR > 60.00
--- NOTE | 2023-12-10 08:34 | VATNOTE ---
Midline ordered due to concerns for IV access and lab draws. Pt has 2 new PIV's discussed with PCN and Patient that if IV accesses no longer functioning. Will place midline.
--- NOTE | 2023-12-10 08:36 | W.PN.HOSP.TC ---
Today's Communication/Plan
-
Start tube feeds
Assessment / Plan
Assessment / Plan
Gen-AAOx3, NAD
HEENT-NC, AT, anicteric, clear oral mm
Neck-supple
CV-reg, no M, +S1/S2
Lungs-clear B/L
Abd-soft, NT, ND
Ext-no edema
Musculoskeletal-no cyanosis, clubbing
Skin-warm and dry
Neuro-grossly non-focal
Psych-calm, cooperative
New onset atrial fibrillation -change Cardizem to tube. Still on aspirin. Start Eliquis today if okay with surgical service.
Recurrent acute sigmoid volvulus--Distal sigmoid obstruction similar to that seen on the 12/01/2023 with dilated gas-filled colon measuring up to 8.5 cm---Last occurrence 12/01/23 (refused surgical intervention at that time)--went to OR 12/02 for flex
sigmoidoscopy and rectal tube--then had more pain with concern for bowel perf--taken back to OR again on 12/03 and had ex lap with sigmoidectomy and end colostomy.
Start tube feeds today.
IV Zosyn x 7 days per general surgery, today is day 7.
Severe protein/calorie malnutrition--likely severe with cachexia, sunken features, muscle mass loss. Nutrition consulted. Etiology of malnutrition likely multifactorial including severe dysphagia.
Severe dysphagia -PEG tube placed 12/08. Start tube feeds today.
Episode of chest pain 12/08 -EKG without concerning findings. Troponins negative.
Hypokalemia -resolved. QTc interval noted to be prolonged, hopefully will improve with continued repletion.
Hypophosphatemia -improved.
HX CVA--No obvious residual deficits, no history of A-fib. Continue aspirin and Lipitor.
HX Glaucoma--Unilateral, left eye--Continue with timolol and latanoprost eyedrops
HX squamous cell carcinoma of tongue
Hearing loss--VERY HARD of HEARING even with hearing aides
DVT proph--scds
code status -- FULL CODE
Dispo -await discharge to SNF.
Anticipated Discharge: Within 24 hours
Subjective/Interval History
-
Date of Service: December 10, 2023
Patient seen and examined. No complaints.
Objective Data
-
Labs:
Laboratory Results
12/10/23
07:01
Sodium 144
Potassium 3.7
Chloride 107
Carbon Dioxide 25
BUN 31 H
Creatinine 0.7
Glucose 85
Calcium 7.8 L
Vital Signs:
Vital Signs
Temp Pulse Resp BP Pulse Ox
97.7 F 75 14 133/76 98
12/10/23 07:01 12/10/23 07:01 12/10/23 07:01 12/10/23 07:01 12/10/23 07:01
I&O
12/09/23 12/10/23 12/11/23
06:59 06:59 06:59
Intake Total 2240 / 2240 1790.0 / 1790.0
Output Total 601 / 601 680 / 680
Balance 1639 / 1639 1110.0 / 1110.0
Review of Systems
-
History Source: Patient
All other systems: Reviewed and negative
--- NOTE | 2023-12-10 08:41 | W.PN.CD ---
Today's Communication / Plan
-
- Switch Dilt drip to PEG tube
- Start Eliquis and stop Heparin and ASA.
Impression / Plan
-
New onset atrial fibrillation with RVR: paroxysmal
-echo 12/07/23 Normal biventricular size and systolic function without regional wall motion abnormality.
-mostly in SR with PVC's
-Now with PEG tube in place, Will change diltiazem drip to Diltiazem 30 mg QID- which requires monitoring on tele
-to transition to pills via PEG once able
-[id number] score = 4. On ASA and sub Q Heparin 0 can switch to Eliquis 5mg bid.
Dysphagia
-s/p PEG tube 12/09/23 for feeding and medications.
Volvulus
-s/p sigmoidectomy and end colostomy 12/04/23
-per surgery
h/o CVA, hyperlipidemia
-on statin, ASA
-Swallowing issues - start Eliquis when able to
-stop ASA once eliquis started
Physical Exam
Vital Signs/Labs
Vital Signs
Temp Pulse Resp BP Pulse Ox
97.7 F 75 14 133/76 98
12/10/23 07:01 12/10/23 07:01 12/10/23 07:01 12/10/23 07:01 12/10/23 07:01
12/08/23 06:12
12/10/23 07:01
PT 15.6 Sec (11.4-14.6) H 12/04/23 06:10
INR 1.26 12/04/23 06:10
APTT 25.4 Sec (23.4-35.0) 12/04/23 06:10
Magnesium 1.9 mg/dl (1.6-2.3) 12/10/23 07:01
LAB Results
12/09/23 12/09/23 12/10/23
12:57 19:13 00:30
Troponin I < 0.012 < 0.012 < 0.012
Physical Exam
Constitutional: No acute distress, Comfortable and Other (Emaciated. )
EENT: Anicteric
Cardiovascular: Rhythm & rate is regular and Pedal edema is absent
Respiratory: Respiratory effort normal
GI: Soft and Distention absent
Neuro/Psych: Alert and Oriented
Data Reviewed
-
Date of Service: December 10, 2023
Medical Decision Making: Reviewed Test Results, Independent Historian Assessment and Test Interpretation
EKG: Tracing Personally Visualized and interpreted
Echo: Report Reviewed by me
Labs: Labs Reviewed by me
Old Records: Reviewed
[2023-12-10] MEDS: TIMOPTIC 0.5% OPHTHALMIC SOLUTION 1 DROP LEFT EYE ×2 (08:49→14:20)
[2023-12-10] MEDS: PROTONIX IV IV (08:49)
[2023-12-10] MEDS: HEPARIN SC (08:50)
[2023-12-10] MEDS: NSS (PRESERVATIVE FREE) IV ×2 (08:51→20:45)
[2023-12-10] MEDS: PREVACID 30 MG TUBE ×2 (09:45→20:45)
--- NOTE | 2023-12-10 10:35 | CM ---
Addendum entered by Marek Guajardo 12/10/23 14:59:
CM met with pt and pt's spouse at bedside. Both pt and his spouse were notified that [facility] has no male bed available. [facility] and [facility] offered a bed. Both pt and his spouse preferred [facility].
D/C plan: [facility] when medically stable.
CM will follow to assist pt with discharge to [facility].
Original Note:
CM following re: discharge planning.
Reviewed pt's chart, met with pt and spoke to pt's spouse Yu.
Per chart review, pt is POD #6 ex lap with sigmoidectomy and end colostomy had PEG tube placed yesterday. Tube feeding to begin later today.
PT and OF have been recommending SNF level of care.
pt referred to a preferred SNFs: [facility], [facility], [facility], [facility]. A referral to above SNFs
Pt's spouse confirmed that pt had peg tube in the past, she knows how to care and per spouse she will bring the pt home after the completion of a short term rehab.
D/C plan: preferred SNF.
CM will follow to assist pt with discharge to a preferred SNF.
--- NOTE | 2023-12-10 11:05 | WOUNDNOTE ---
WOC RN note: Patient's stoma brown moist (not new as per documentation) and functioning for loose brown stool. Peristomal skin intact. Stoma almost flush and oval shaped about 1x1 3/4 inches. Instructed patient and (via FaceTime on patient's
Iphone) appliance change using [place] wafer # [id number] and [place] pouch # [id number]. Instructed can add Aden seal if leakage becomes a problem. Ostomy supplies in room. Sacrum dull red and intact. Protective silicone border foam applied.
Patient can turn self in bed. Waffle air overlay in place. Patient has an air chair cushion. Heels off bed with pillows. Next appliance change due Wednesday.
--- NOTE | 2023-12-10 11:16 | WOUNDNOTE ---
WOC RN note: Patient's stoma brown moist (not new as per documentation) and functioning for loose brown stool. Peristomal skin intact. Stoma almost flush and oval shaped about 1x1 3/4 inches. Instructed patient and (via FaceTime on patient's
Iphone) appliance change using Crane wafer # [id number] and Crane pouch # [id number]. Instructed can add Aden seal if leakage becomes a problem. Ostomy supplies in room. Sacrum dull red and intact. Protective silicone border foam applied.
Patient can turn self in bed. Waffle air overlay in place. Patient has an air chair cushion. Heels off bed with pillows. Next appliance change due Wednesday. Isaías texted Dr. Johanna horn picture while appliance was off.
[2023-12-10 11:19] VITALS: BP 135/72
[2023-12-10] MEDS: CARDIZEM 30 MG TUBE ×3 (12:00→21:09)
--- NOTE | 2023-12-10 13:46 | WOUNDNOTE ---
WOC RN Note: t/c Spoke with patient's who gave this advertising writer verbal permission to order a Maylin secure starter kit.
--- NOTE | 2023-12-10 14:15 | WOUNDNOTE ---
WOC RN Note: t/c Spoke with patient's who gave this race and sports book writer verbal permission to order a Maylin secure starter kit. Ordered patient a Maylin ostomy secure starter kit.
[2023-12-10] MEDS: LOVENOX 40 MG SC (14:20)
[2023-12-10 15:49] VITALS: BP 137/78
[2023-12-10 19:41] VITALS: BP 136/71
[2023-12-10] MEDS: XALATAN OPHTHALMIC SOLUTION 1 DROP LEFT EYE (21:09)
[2023-12-10] MEDS: LIPITOR 20 MG TUBE (21:09)
[2023-12-10 23:49] VITALS: BP 116/77
[2023-12-11] VITALS (9 sets, daily range): BP systolic 108–127; BP diastolic 59–82; PULSE 80; O2SAT 96
[2023-12-11] MEDS: LOPRESSOR 2.5 MG IV (03:10)
--- NOTE | 2023-12-11 03:15 | PTCARENOTE ---
Pt was having runs of Vtach. I Loving Texted Dr. Daren Lopez (bi application developer for [facility]). He ordered an EKG and requested a picture of the EKG and a Vtach strip be Loving Texted to him. I do not have Loving Text on my phone, so Raine
Colleen BATISTA working on [address] [place] [address] Serra places an order for Metoprolol 2.5mg IV Q6 scheduled, via phone. I Loving Texted him for parameters, he gave them ... hold for sbp<110 and HR<60. I called and spoke to a woman who said she would
call it to the pharmacist attention when the order was not in [facility] yet. He put it in for 6am, tried calling back a couple of times with no answer. When he answered i told him as I told the woman earlier I need to give the med to the pt now, so
he retimed it and I promptly gave it. The pt's heart rate went from 115 to the 80's after adminstering the Metoprolol 2.5mg IV.
[2023-12-11 07:55] LABS: Blood Urea Nitrogen 30 mg/dl (9-20); Calcium 7.7 mg/dl (8.4-10.2); Carbon Dioxide 29 mmol/L (22-30); Chloride 104 mmol/L (98-107); Estimated Creatinine Clearance 67 ml/min; Glucose 118 mg/dl (70-99); Phosphorus 2.3 mg/dl (2.5-4.5); Potassium 3.5 mmol/L (3.5-5.1); Sodium 142 mmol/L (135-145); eGFR > 60.00
[2023-12-11] MEDS: CARDIZEM 30 MG TUBE (08:00)
[2023-12-11] MEDS: NSS (PRESERVATIVE FREE) IV (08:00)
[2023-12-11] MEDS: PREVACID 30 MG TUBE ×2 (08:00→21:02)
[2023-12-11] MEDS: TIMOPTIC 0.5% OPHTHALMIC SOLUTION 1 DROP LEFT EYE ×2 (08:00→13:12)
--- NOTE | 2023-12-11 08:31 | W.PN.HOSP.TC ---
Today's Communication/Plan
-
Continue tube feeds
Eliquis
Assessment / Plan
Assessment / Plan
Gen-AAOx3, NAD
HEENT-NC, AT, anicteric, clear oral mm
Neck-supple
CV-reg, no M, +S1/S2
Lungs-clear B/L
Abd-soft, NT, ND
Ext-no edema
Musculoskeletal-no cyanosis, clubbing
Skin-warm and dry
Neuro-grossly non-focal
Psych-calm, cooperative
New onset atrial fibrillation -change Cardizem to tube. Okay to start Eliquis today per surgery. Aspirin discontinued.
Recurrent acute sigmoid volvulus--Distal sigmoid obstruction similar to that seen on the 12/01/2023 with dilated gas-filled colon measuring up to 8.5 cm---Last occurrence 12/01/23 (refused surgical intervention at that time)--went to OR 12/02 for flex
sigmoidoscopy and rectal tube--then had more pain with concern for bowel perf--taken back to OR again on 12/03 and had ex lap with sigmoidectomy and end colostomy.
Continue tube feeds.
Completed course of antibiotics.
Severe protein/calorie malnutrition--likely severe with cachexia, sunken features, muscle mass loss. Nutrition consulted. Etiology of malnutrition likely multifactorial including severe dysphagia.
Severe dysphagia -PEG tube placed 12/08. Continue tube feeds, advance to goal. Watch for refeeding syndrome. Monitor electrolytes.
Episode of chest pain 12/08 -EKG without concerning findings. Troponins negative.
Hypokalemia -resolved. QTc interval noted to be prolonged, hopefully will improve with continued repletion.
Hypophosphatemia -continue repletion.
HX CVA--No obvious residual deficits, no history of A-fib. Continue aspirin and Lipitor.
HX Glaucoma--Unilateral, left eye--Continue with timolol and latanoprost eyedrops
HX squamous cell carcinoma of tongue
Hearing loss--VERY HARD of HEARING even with hearing aides
DVT proph--scds
code status -- FULL CODE
Dispo -await discharge to SNF.
Anticipated Discharge: 24 - 48 hours
Subjective/Interval History
-
Date of Service: December 11, 2023
Patient seen and examined. No complaints.
Objective Data
-
Labs:
Laboratory Results
12/11/23
05:22
Sodium 142
Potassium 3.5
Chloride 104
Carbon Dioxide 29
BUN 30 H
Creatinine 0.8
Glucose 118 H
Calcium 7.7 L
Vital Signs:
Vital Signs
Temp Pulse Resp BP Pulse Ox
97.7 F 69 18 108/59 96
12/11/23 07:47 12/11/23 07:47 12/11/23 07:47 12/11/23 07:47 12/11/23 07:47
I&O
12/10/23 12/11/23 12/12/23
06:59 06:59 06:59
Intake Total 1790.0 / 1790.0 1190 / 1745 555 / 555
Output Total 680 / 680 2125 / 2125
Balance 1110.0 / 1110.0 -935 / -380 555 / 555
Review of Systems
-
History Source: Patient
All other systems: Reviewed and negative
--- NOTE | 2023-12-11 08:45 | W.PN.CD ---
Today's Communication / Plan
-
Cardiology will sign off
We will arrange followup in our office
Impression / Plan
-
New paroxysmal atrial fibrillation and now typical atrial flutter
- Now back on Eliquis
- Will increase Dilt to 60 q6 as flutter needs more med for rate control
- No symptoms from fib or flutter, at least at rest
- There is no VT
LBBB, intermittent
Dysphagia, s/p PEG tube 12/09/23 for feeding and medications.
Volvulus, s/p sigmoidectomy and end colostomy 12/04/23
h/o CVA, off ASA now that he is on Eliquis
hyperlipidemia => continue statin
Subjective:
No CP or palps
Physical Exam
Vital Signs/Labs
Vital Signs
Temp Pulse Resp BP Pulse Ox
97.7 F 69 18 108/59 96
12/11/23 07:47 12/11/23 07:47 12/11/23 07:47 12/11/23 07:47 12/11/23 07:47
12/08/23 06:12
12/11/23 05:22
PT 15.6 Sec (11.4-14.6) H 12/04/23 06:10
INR 1.26 12/04/23 06:10
APTT 25.4 Sec (23.4-35.0) 12/04/23 06:10
Magnesium 2.0 mg/dl (1.6-2.3) 12/11/23 05:22
LAB Results
12/09/23 12/09/23 12/10/23
12:57 19:13 00:30
Troponin I < 0.012 < 0.012 < 0.012
Physical Exam
Constitutional: No acute distress
Cardiovascular: Rhythm/rate is irregular
Respiratory: Respiratory effort normal and Lungs clear to auscul.
GI: Soft and Distention absent
Neuro/Psych: AO x 3
Data Reviewed
-
Date of Service: December 11, 2023
[2023-12-11] MEDS: POTASSIUM PHOSPHATE 259.0909 MEQ IV (09:29)
[2023-12-11] MEDS: KCL ELIXIR 20 MEQ TUBE (10:58)
[2023-12-11] MEDS: ELIQUIS 5 MG TUBE ×2 (10:58→21:01)
[2023-12-11 13:07] LABS: Body Fluid Creatinine 0.7 mg/dl
[2023-12-11] MEDS: CARDIZEM 60 MG TUBE ×3 (13:11→21:03)
--- NOTE | 2023-12-11 13:39 | W.PN.GS2 ---
Addendum entered and electronically signed by Jam Iqbal MD 12/11/23 18:53:
I saw and examined the patient.
The COMMERCIAL PHOTOGRAPHER's note was reviewed and I agree with the note.
Comment:
POD 7 ex lap sigmoidectomy, end colostomy
POD 2 PEG tube placement
AFVSS, ABD soft, nondistended, appropriately tender, APULA�725 mL serous
Okay to advance tube feeds to goal
Okay to start Eliquis
Pain control
Will send PAULA Cr to rule out bladder injury to account for sudden increase in PAULA output
Original Note:
Today's Communication / Plan
-
Advance TF to goal
C/W PAULA
Trend labs
Assessment / Plan
-
82 yo male presenting with sigmoid volvulus with failed rectal decompression now POD #7 ex lap with sigmoidectomy and end colostomy and PPD #2 PEG tube placement
AFVSS
New afib this admission: cardiology evaluated with initiation of diltiazem
Stoma dark but functioning with stool in appliance
PAULA outputs increased this am (serous) with normal body fluid cr
Low phos
--Tube feedings started and slowly being advanced to goal without n/v/abdominal pain
--Ok to start Eliquis today via PEG
--C/W PAULA drain in place
--Risk for refeeding syndrome: Give KPhos rider x1 today and follow labs
--Multimodal analgesics as needed
--Stoma nurse consulted, input appreciated
--Nutrition following with us
--OOB/Ambulate. PT/OT consulted to follow. May need inpatient rehab upon d/c
--CM following with us for dispo planning
--Completed 7 day course of zosyn, follow labs/exams off abx
--SCD's while in bed
Subjective Data
-
Date of Service: December 11, 2023
Patient seen and examined at bedside with Dr. Iqbal. Denies n/v. Tolerating tf diet thus far. Denies significant pain. Voiding without difficulty.
Objective Data
-
Intake and Output
12/10/23 12/11/23 12/12/23
06:59 06:59 06:59
Intake Total 1790.0 / 1790.0 1190 / 1745 555 / 555
Output Total 680 / 680 2125 / 2125
Balance 1110.0 / 1110.0 -935 / -380 555 / 555
Intake:
Oral fluids 360 / 360
IV fluids (Total) 930.0 / 930.0 840 / 840
0.45 NS 70 / 70
Cardizem 10.0 / 10.0
NS 50 / 50
IV piggybacks 470 / 470 50 / 50
Tube feeding 100 / 355 255 / 255
Feeding tube flush amount 200 / 500 300 / 300
Amount instilled into GI Tube ( 30 / 30
Total)
Gastrostomy 30 / 30
Output:
Liquid stool amount 850 / 850
Colostomy 850 / 850
Drain Output (Total) 725 / 725
Right Middle Abdomen Christopher- 725 / 725
Shanks
Gastrointestinal tube output ( 0 / 0
Total)
Gastrostomy 0 / 0
Urine, Voided 650 / 650 550 / 550
Other:
Number of approximated SMALL 1
amounts of urine
Number of approximated MODERATE 1
amounts of urine
Vital Signs
Temp Pulse Resp BP Pulse Ox
98.1 F 73 16 127/74 95
12/11/23 11:51 12/11/23 11:51 12/11/23 11:51 12/11/23 11:51 12/11/23 11:51
Lab Results
12/08/23 06:12
12/11/23 05:22
Calcium 7.7 mg/dl (8.4-10.2) L 12/11/23 05:22
Phosphorus 2.3 mg/dl (2.5-4.5) L 12/11/23 05:22
Magnesium 2.0 mg/dl (1.6-2.3) 12/11/23 05:22
Total Bilirubin 1.0 mg/dl (0.2-1.3) 12/08/23 06:12
AST 38 U/L (17-59) 12/08/23 06:12
ALT 21 U/L (0-50) 12/08/23 06:12
Alkaline Phosphatase 83 U/L (38-126) 12/08/23 06:12
Total Protein 4.9 g/dl (6.3-8.2) L 12/08/23 06:12
Albumin 2.6 g/dl (3.5-5.0) L 12/08/23 06:12
Physical Exam
-
AFVSS
NAD, [place]
ABD: soft ND, mild TTP at incision site.
Midline laparotomy incision with talib clean, no drainage, no erythema
L ostomy functional with dark/pratt with stool/flatus in appliance
PEG tube in place
PAULA drain- serous fluid with high outputs
[2023-12-11] MEDS: NSS (PRESERVATIVE FREE) 10 ML IV (21:02)
[2023-12-11] MEDS: XALATAN OPHTHALMIC SOLUTION 1 DROP LEFT EYE (21:04)
[2023-12-11] MEDS: LIPITOR 20 MG TUBE (21:04)
[2023-12-11] MEDS: ROXICODONE ORAL SOLUTION 5 MG TUBE (22:28)
--- NOTE | 2023-12-11 23:40 | PTCARENOTE ---
Pt increased to 50ml/hr tube feed @ 1900, tolerating with no complications. scallop binder fish salter notified at beginning of shift r/t HR maintained in the 130s for an hour, no changes at this time, reported he will review in am. PAULA continues large
amounts of clear yellow tinged output , MD Iqbal made aware at change of shift from previous RN, no concerns at this time continue to monitor.
--- NOTE | 2023-12-11 23:44 | PTCARENOTE ---
Pt HR continues 125-140s, denies chest pain or SOB. Pt receiving scheduled Cardizem per MAR
[2023-12-12] VITALS (23 sets, daily range): BP systolic 60–149; BP diastolic 18–130
[2023-12-12] MEDS: ROXICODONE ORAL SOLUTION 5 MG TUBE (03:03)
[2023-12-12] MEDS: ZOFRAN 4 MG IV ×2 (05:32→11:36)
--- NOTE | 2023-12-12 05:38 | PTCARENOTE ---
pt at this time with episode of N/V, tube stopped, Zofran given. Contents resemble mucous that pt reports he coughed up and with small amount of secretions. Tube feed was increased to goal of 60ml @ 0300. Pt has consistent cough and reports he has
been having difficulty with clearing secretion from sitting position.
[2023-12-12 06:25] LABS: Hematocrit 48.4 % (39.0-52.0); Hemoglobin 16.9 g/dL (13.0-18.0); Mean Corp Hgb Conc. 34.9 g/dL (33.0-37.0); Mean Corpuscular Hgb 31.7 pg (27.0-31.0); Mean Corpuscular Volume 90.8 fL (80.0-94.0); Platelet Count 379 10^3/uL (130-400); Red Blood Cell Count 5.33 10^6/uL (4.70-6.10); Red Cell Dist. Width 13.7 % (11.5-14.5); White Blood Cell Count 14.3 10^3/uL (4.8-10.8)
[2023-12-12 06:43] LABS: Blood Urea Nitrogen 33 mg/dl (9-20); Calcium 8.2 mg/dl (8.4-10.2); Carbon Dioxide 28 mmol/L (22-30); Chloride 104 mmol/L (98-107); Estimated Creatinine Clearance 60 ml/min; Glucose 127 mg/dl (70-99); Magnesium 2.1 mg/dl (1.6-2.3); Phosphorus 4.1 mg/dl (2.5-4.5); Potassium 4.3 mmol/L (3.5-5.1); Sodium 143 mmol/L (135-145); eGFR > 60.00
--- NOTE | 2023-12-12 08:50 | W.PN.GS2 ---
Today's Communication / Plan
-
Stop TF diet and make NPO
Repeat imaging
Resume ABX
Transfer to IMU
Assessment / Plan
-
82 yo male presenting with sigmoid volvulus with failed rectal decompression now POD #8 ex lap with sigmoidectomy and end colostomy and PPD #3 PEG tube placement
New afib this admission: cardiology evaluated with initiation of diltiazem
Tachycardic with hypotension, afebrile
Stoma dark but functioning with stool in appliance
PAULA outputs increased since 12/10 with normal body fluid cr. Abdominal exam has changed with increased tenderness and distention. Now with N/V
WBC increased from 11.6 to 14.3, labs otherwise stable
-- Repeat CT of the abd/pelvis with po/iv contrast
-- Rapid afib management as per cards/primary team
-- Agree with transfer to IMU
-- Make NPO, ok for ice chips for comfort
-- Hold PO AC, ok for IV heparin without bolus/lovenox if deemed necessary by cards/medical team
--C/W PAULA drain in place, monitor outputs closely
--Trend labs
--Multimodal analgesics as needed. Will add back IV options given n/v
--Stoma nurse consulted, input appreciated
--Nutrition following with us
--OOB/Ambulate. PT/OT consulted to follow. May need inpatient rehab upon d/c
--Completed 7 day course of zosyn, now off abx and WBC rising, will resume abx and follow.
--SCD's while in bed
Subjective Data
-
Date of Service: December 12, 2023
Patient seen and examined at bedside. Vomiting overnight with active nausea currently. Feels he was choking on phlegm which caused him to vomit but does admit he is nauseated as well. Denies increased pain but much more tender on exam. Denies cp or
SOB
Objective Data
-
Intake and Output
12/11/23 12/12/23 12/13/23
06:59 06:59 06:59
Intake Total 1190 / 1745 2745 / 2745
Output Total 2125 / 2125 2670 / 2670
Balance -935 / -380 75 / 75
Intake:
Oral fluids 180 / 180
IV fluids (Total) 840 / 840
IV piggybacks 50 / 50 270 / 270
Tube feeding 100 / 355 1295 / 1295
Feeding tube flush amount 200 / 500 1000 / 1000
Output:
Emesis 200 / 200
Liquid stool amount 850 / 850 400 / 400
Colostomy 850 / 850 400 / 400
Drain Output (Total) 725 / 725 1040 / 1040
Right Middle Abdomen Christopher- 725 / 725 1040 / 1040
Shanks
Urine, Voided 550 / 550 1030 / 1030
Other:
Number of approximated SMALL 1
amounts of urine
Number of approximated MODERATE 1
amounts of urine
Number of immeasurable emeses? 1
Vital Signs
Temp Pulse Resp BP Pulse Ox
97.7 F 93 16 93/67 95
12/12/23 07:25 12/12/23 07:25 12/12/23 07:25 12/12/23 07:25 12/12/23 07:25
Lab Results
12/12/23 05:51
12/12/23 05:51
Calcium 8.2 mg/dl (8.4-10.2) L 12/12/23 05:51
Phosphorus 4.1 mg/dl (2.5-4.5) 12/12/23 05:51
Magnesium 2.1 mg/dl (1.6-2.3) 12/12/23 05:51
Total Bilirubin 1.0 mg/dl (0.2-1.3) 12/08/23 06:12
AST 38 U/L (17-59) 12/08/23 06:12
ALT 21 U/L (0-50) 12/08/23 06:12
Alkaline Phosphatase 83 U/L (38-126) 12/08/23 06:12
Total Protein 4.9 g/dl (6.3-8.2) L 12/08/23 06:12
Albumin 2.6 g/dl (3.5-5.0) L 12/08/23 06:12
Physical Exam
-
AFVSS
NAD, INAJA
ABD: Distention present, tender with mild guarding, mild TTP at incision site.
Midline laparotomy incision with talib clean, no drainage, no erythema
L ostomy functional with dark/pratt with stool/flatus in appliance
PEG tube in place
PAULA drain- serous fluid with high outputs
[2023-12-12] MEDS: CORDARONE 103 MG IV (09:35)
--- NOTE | 2023-12-12 09:51 | W.PN.HOSP.TC ---
Addendum entered and electronically signed by Loi Salas DO 12/12/23 14:43:
Surgical team spoke with at bedside. Decision made by family to pursue comfort measures, avoid further surgery.
IV Morphine PRN ordered, transition to Morphine drip if needed for comfort.
understands that Mk is at end of life and is expected to pass in the hospital.
Cancel ICU transfer.
Updated nursing.
Addendum entered and electronically signed by Loi Salas, 12/12/23 14:28:
Rapid response called for hypotension, tachycardia, unresponsiveness, hypoxic resp failure. Patient did not lose pulse.
Hemodynamically improving with IVF and IV Levophed in IMU. NRB mask. ICU transfer orders placed.
Repeat CT Abdomen concerning for ischemic bowel.
I spoke with Dr. Iqbal (surgical service), he plans to speak with about GOC. High risk surgery.
at bedside, she wants DNR, DNI. I explained that if she opts to not pursue surgery, then we can offer comfort measures and make sure Aayush does not suffer.
Original Note:
Today's Communication/Plan
-
Amiodarone drip
IMU transfer
N.p.o.
CT abdomen
Assessment / Plan
Assessment / Plan
Gen-AAOx3, NAD
HEENT-NC, AT, anicteric, clear oral mm
Neck-supple
CV-reg, no M, +S1/S2
Lungs-clear B/L
Abd-soft, NT, ND
Ext-no edema
Musculoskeletal-no cyanosis, clubbing
Skin-warm and dry
Neuro-grossly non-focal
Psych-calm, cooperative
New onset atrial fibrillation -change Cardizem to tube. Okay to start Eliquis today per surgery. Aspirin discontinued.
Back into rapid atrial fibrillation this morning, 12/11. Amiodarone drip ordered. Cardiology aware. Relative hypotension noted. Transfer to IMU. Discussed with nursing.
Recurrent acute sigmoid volvulus--Distal sigmoid obstruction similar to that seen on the 12/01/2023 with dilated gas-filled colon measuring up to 8.5 cm---Last occurrence 12/01/23 (refused surgical intervention at that time)--went to OR 12/02 for flex
sigmoidoscopy and rectal tube--then had more pain with concern for bowel perf--taken back to OR again on 12/03 and had ex lap with sigmoidectomy and end colostomy.
Tube feeds now on hold due to episode of vomiting 12/[address] abdomen.
Completed course of antibiotics. IV Zosyn resumed today 12/11 by general surgery due to leukocytosis and tachycardia. Repeat CT abdomen ordered.
Severe protein/calorie malnutrition--likely severe with cachexia, sunken features, muscle mass loss. Nutrition consulted. Etiology of malnutrition likely multifactorial including severe dysphagia.
Severe dysphagia -PEG tube placed 12/08.
Episode of chest pain 12/08 -EKG without concerning findings. Troponins negative.
Hypokalemia -resolved. QTc interval noted to be prolonged, hopefully will improve with continued repletion.
Hypophosphatemia -continue repletion.
HX CVA--No obvious residual deficits, no history of A-fib. Continue aspirin and Lipitor.
HX Glaucoma--Unilateral, left eye--Continue with timolol and latanoprost eyedrops
HX squamous cell carcinoma of tongue
Hearing loss--VERY HARD of HEARING even with hearing aides
DVT proph--scds
FULL CODE
Dispo -eventual SNF when medically stable.
Updated on the phone. All questions answered.
Anticipated Discharge: > 48 hours
Subjective/Interval History
-
Date of Service: December 12, 2023
Patient seen and examined. Episode of vomiting this morning.
Objective Data
-
Labs:
Laboratory Results
12/12/23
05:51
WBC 14.3 H
Hgb 16.9
Hct 48.4
Plt Count 379 D
Sodium 143
Potassium 4.3
Chloride 104
Carbon Dioxide 28
BUN 33 H
Creatinine 0.9
Glucose 127 H
Calcium 8.2 L
Vital Signs:
Vital Signs
Temp Pulse Resp BP Pulse Ox
97.7 F 136 16 102/59 95
12/12/23 07:25 12/12/23 09:28 12/12/23 07:25 12/12/23 09:28 12/12/23 07:25
I&O
12/11/23 12/12/23 12/13/23
06:59 06:59 06:59
Intake Total 1190 / 1745 2745 / 2745
Output Total 2125 / 2125 2670 / 2670
Balance -935 / -380 75 / 75
Review of Systems
-
History Source: Patient
Constitutional: Reports No Symptoms
[2023-12-12] MEDS: ZOSYN 50 IV (10:16)
[2023-12-12] MEDS: OMNIPAQUE 50 ML PO (10:23)
--- NOTE | 2023-12-12 10:31 | PTCARENOTE ---
Addendum entered by Polly Merlos RN 12/12/23 10:51:
While attempting to come out of elevator, wheels got stuck. Security notified and nursing supervisor throwing department on scene. Transferred patient to stretcher. Arrived to IMU at 1005.
Original Note:
0955: Orders to transfer patient to IMU placed. Report given to LYNNE Costa in IMU. Patient transferred to IMU with two RNs. Patient belongings transferred with patient. Patient remained on tele during transfer.
[2023-12-12] MEDS: CORDARONE 518 MG IV (10:33)
[2023-12-12] MEDS: KCL ELIXIR TUBE (10:40)
[2023-12-12] MEDS: CARDIZEM TUBE (10:40)
[2023-12-12] MEDS: TIMOPTIC 0.5% OPHTHALMIC SOLUTION 1 DROP LEFT EYE (10:41)
[2023-12-12] MEDS: ELIQUIS TUBE (10:41)
--- NOTE | 2023-12-12 10:53 | PTCARENOTE ---
PT from [address] [place] [address] for Amiodarone gtt, now infusing as ordered via R forearm. Pt is AAOx3 very anxious. TF on hold tolerating contrast at this time no N?V. Pt very MODOC. Pt looksm to be comfortabla at this time. On RA no s/sof distress
--- NOTE | 2023-12-12 11:01 | PTCARENOTE ---
PTb hands cold will spot check POX on RA
[2023-12-12] MEDS: PREVACID TUBE (11:02)
[2023-12-12] MEDS: NSS (PRESERVATIVE FREE) IV (11:03)
--- NOTE | 2023-12-12 11:09 | W.PN.CD ---
Today's Communication / Plan
-
BP is limiting rate control of flutter
Move AMIO, IV for 24 hrs and then PO (at least 3 months of AMIO then may stop)
Stop dilt for low BP
Abdominal process per surgery
Impression / Plan
-
Volvulus, s/p sigmoidectomy and end colostomy 12/04/23
Increased abdominal pain
CT scan noted: 12/12/2023:
'1.Pneumatosis, small bowel dilatation and portal venous gas in keeping with bowel ischemia and postoperative ileus, new from prior. No convincing evidence for perforation.
2. Small to moderate bilateral pleural effusions, new from prior.
3. Right middle and lower lobe pneumonia, new from prior and possibly aspiration related.'
- Surgery seeing patient now
New paroxysmal atrial fibrillation and now typical atrial flutter
- Rates were faster and bp soft => stopped Dilt and moved to IV amio this AM (plan 3 months of Amio then consider stopping)
- Has been back on Eliquis 12/11/2023 two doses. None today 12/12/2023
- No symptoms from fib or flutter, at least at rest
- There is no VT
LBBB, intermittent
Dysphagia, s/p PEG tube 12/09/23 for feeding and medications.
h/o CVA, off ASA now that he is on Eliquis
hyperlipidemia => continue statin
Subjective:
Less responsive
Physical Exam
Vital Signs/Labs
Vital Signs
Temp Pulse Resp BP Pulse Ox
100.3 F 137 25 128/102 92
12/12/23 10:32 12/12/23 10:30 12/12/23 10:30 12/12/23 10:24 12/12/23 10:18
12/12/23 05:51
12/12/23 05:51
PT 15.6 Sec (11.4-14.6) H 12/04/23 06:10
INR 1.26 12/04/23 06:10
APTT 25.4 Sec (23.4-35.0) 12/04/23 06:10
Magnesium 2.1 mg/dl (1.6-2.3) 12/12/23 05:51
LAB Results
12/09/23 12/09/23 12/10/23
12:57 19:13 00:30
Troponin I < 0.012 < 0.012 < 0.012
Physical Exam
Constitutional: Distress (looks ill and is less responsive than yesterday)
Cardiovascular: Rhythm/rate is irregular and S1S2 is normal
Respiratory: Respiratory effort normal and Lungs clear to auscul.
GI: Soft
Neuro/Psych: Other (lethargic)
Data Reviewed
-
Date of Service: December 12, 2023
--- NOTE | 2023-12-12 11:39 | PTCARENOTE ---
Pt given half of contrast now feeling nauseated Zofran given
[2023-12-12] MEDS: OFIRMEV 100 IV (11:53)
[2023-12-12] MEDS: DILAUDID 1 MG IV (12:00)
--- NOTE | 2023-12-12 12:06 | PTCARENOTE ---
Pt in pain given Ofirmev pt begging for pain medication given Dilaudid 1 mg IV
[2023-12-12] MEDS: NSS 500 IV (13:40)
[2023-12-12 14:11] LABS: Glucose - Point of Care 148 mg/dl (70-99)
[2023-12-12 14:28] LABS: B.E. -0.5 mmol/L; HCO3 24.8 mmol/L (21-28); O2 Saturation % 99.9 % (94-98); PCO2 42 mmHg (35-48); PO2 102 mmHg (83-108); pH 7.38 (7.35-7.45)
--- NOTE | 2023-12-12 14:29 | CON.INTV ---
Consultation
Consultation Request
Date/Time Consultation Requested: 12/12/2023 - 1419
Date/Time Consultation Performed: 12/12/2023 - 1427
Requesting Provider: Dr. Salas
Performing Provider: Dr. High
Reason for Consultation: Tachycardia/Hypotension
Medical History
-
Chief Complaint: Abdominal pain
History of Present Illness:
83-year-old male non-smoker with a past medical history of CVA, sigmoid volvulus and squamous cell carcinoma of the tongue who initially presented on 12/02 with severe lower abdominal pain. He had just been hospitalized 2 days prior after presenting
with lower abdominal pain, saying it felt similar to when he had sigmoid volvulus in the past. CT A/P on 12/01/2023 showed sigmoid volvulus measuring up to 7.9 cm with colonic distention most pronounced at the ascending colon consistent with distal
obstruction. Also small volume ascites. Flex sig performed on 11/30 showed suspected volvulus and partial decompression performed with rectal tube left in place to maintain the decompression. Patient symptoms improved, and colorectal surgery saw
the patient who recommended outpatient follow-up. Patient discharged home on 12/02/2023, but then returned the next day with intractable lower abdominal pain. CT abdomen/pelvis on 12/02 showed again distal sigmoid obstruction similar to prior CT A/P
done on 12/01/2023, now with dilated gas-filled colon measuring up to 8.5 cm. Ascites volume also increased to moderate level. Patient brought to the OR on 12/03/2023 and obtained rigid sigmoidoscopy with placement of rectal tube. Plain films
performed in recovery room showed recurrent/persistent volvulus and repeat flex-sig with decompression tube was performed again overnight on 12/02 - 12/04/2023. Abdominal XR performed on the morning of 12/03 showed severe pneumoperitoneum consistent
with colonic perforation, which was confirmed on subsequent CT A/P. Patient underwent ex lap with sigmoidectomy and end colostomy creation on 12/04/2023. Patient was transferred to the ICU for postoperative care. He unfortunately developed new
onset A-fib with RVR on 12/05, requiring Cardizem drip. Echo showed normal biventricular size and systolic function without regional WMA. PEG tube was placed on 12/09/2023, and also duodenal ulcers were seen during EGD. Patient was continued to be
managed in floor on tube feeds, however stoma became dark, and this morning he became hypotensive and tachycardic with A-fib with RVR into the 130�140s. Initially, white sourer services were consulted for transfer to ICU for further care, however
further discussion held between the primary hospitalist, Dr. Salas, and the family, and decision made to transition to comfort care.
PMHx: History of CVA, squamous cell carcinoma of the tongue, PECHANGA, history of sigmoid volvulus, history of glaucoma, hyperlipidemia, history of PVCs
PShx: Non�contributory
Past Medical History
Past Medical History: Other (Above as per HPI)
Past Surgical History: Other (Above as per HPI)
Social History
Tobacco: Non-smoker
Alcohol: None
Drug: None
Family History
Family History: Reviewed & Not Pertinent
Allergies / Home Medications
Allergies
Allergy/AdvReac Type Severity Reaction Status Date / Time
No Known Allergies Allergy Verified 12/03/23 14:20
Home Medications
�Medication �Instructions �Recorded �Confirmed �Last Taken �Type
aspirin 81 mg chewable tablet 81 mg PO DAILY Blood Clot 12/01/23 12/03/23 12/03/23 History
Prevention/Tx
atorvastatin 20 mg tablet 20 mg PO HS High Cholesterol 12/01/23 12/03/23 12/02/23 History
latanoprost 0.005 % eye drops 1 drp LEFT EYE HS Eye Condition 12/01/23 12/03/23 12/02/23 History
timolol maleate 0.5 % eye drops 1 drp LEFT EYE BID@0800,1400 Eye 12/01/23 12/05/23 12/03/23 History
Condition
docusate sodium 250 mg capsule 250 mg PO BID Volvulus 1 month #60 12/02/23 12/03/23 12/02/23 Rx
caps
polyethylene glycol 3350 17 4 g PO DAILY Volvulus 1 month #120 12/02/23 12/03/23 12/03/23 Rx
gram/dose oral powder (Miralax) grams
Review of Systems
-
Unable to Obtain full review of systems at this time due to: Acuity
Vitals / Labs / Diagnostic Testing
Vital Signs
Temp Pulse Resp BP Pulse Ox
100.3 F 114 20 93/82 92
12/12/23 10:32 12/12/23 11:15 12/12/23 11:15 12/12/23 11:13 12/12/23 10:18
Lab Data
12/12/23 05:51
12/12/23 05:51
Diagnostic Testing:
Physical Exam
-
HEENT: Normocephalic and Anicteric
Cardiovascular: S1/S2 and Peripheral Edema (n)
Respiratory: Wheeze (n) and Rales (n)
GI: Soft, Non Distended, Non Tender and Normal Bowel Sounds
Neurology: Other (Lethargic)
Skin: Warm and Dry
General: Fever (n), Chills (n) and Other (appears in acute distress)
Assessment
-
Assessment: 83-year-old male non-smoker with a past medical history of CVA, sigmoid volvulus and squamous cell carcinoma of the tongue who initially presented on 12/02 with severe lower abdominal pain. He had just been hospitalized 2 days prior
after presenting with lower abdominal pain, saying it felt similar to when he had sigmoid volvulus in the past. CT A/P on 12/01/2023 showed sigmoid volvulus measuring up to 7.9 cm with colonic distention most pronounced at the ascending colon
consistent with distal obstruction. Also small volume ascites. Flex sig performed on 11/30 showed suspected volvulus and partial decompression performed with rectal tube left in place to maintain the decompression. Patient symptoms improved, and
colorectal surgery saw the patient who recommended outpatient follow-up. Patient discharged home on 12/02/2023, but then returned the next day with intractable lower abdominal pain. CT abdomen/pelvis on 12/02 showed again distal sigmoid obstruction
similar to prior CT A/P done on 12/01/2023, now with dilated gas-filled colon measuring up to 8.5 cm. Ascites volume also increased to moderate level. Patient brought to the OR on 12/03/2023 and obtained rigid sigmoidoscopy with placement of rectal
tube. Plain films performed in recovery room showed recurrent/persistent volvulus and repeat flex-sig with decompression tube was performed again overnight on 12/02 - 12/04/2023. Abdominal XR performed on the morning of 12/03 showed severe
pneumoperitoneum consistent with colonic perforation, which was confirmed on subsequent CT A/P. Patient underwent ex lap with sigmoidectomy and end colostomy creation on 12/04/2023. Patient was transferred to the ICU for postoperative care. He
unfortunately developed new onset A-fib with RVR on 12/05, requiring Cardizem drip. Echo showed normal biventricular size and systolic function without regional WMA. PEG tube was placed on 12/09/2023, and also duodenal ulcers were seen during EGD.
Patient was continued to be managed in floor on tube feeds, however stoma became dark, and this morning he became hypotensive and tachycardic with A-fib with RVR into the 130�140s. Initially, white sourer services were consulted for transfer to ICU
for further care, however further discussion held between the primary hospitalist, Dr. Salas, and the family, and decision made to transition to comfort care.
Chronic conditions PRIVATE ADVISOR: History of CVA, squamous cell carcinoma of the tongue, PECHANGA, history of sigmoid volvulus, history of glaucoma, hyperlipidemia, history of PVCs
Impression:
#Nausea/vomiting with small bowel dilatation and portal venous gas seen on CT abdomen/pelvis, with concern for SBO + ischemic bowel with post-operative ileus
#Aspiration pneumonia involving the RML + RLL
#Recurrent sigmoid volvulus s/p rectal tube for decompression with subsequent bowel perforation s/p exploratory laparotomy with sigmoidectomy and end colostomy: OR date: 12/04/2023
#New onset A-fib with RVR
Plan:
- Family has now agreed to transition to comfort care measures - I discussed the patient's case with , Yu, and answered all her questions.
- Morphine drip being started, and would also order prn ativan
- Emotional support provided
- Given concern for distal small bowel obstruction on CT abdomen/pelvis from today, could consider keeping NGT on LCWS, however now that pt is comfort care, it is not unreasonable to remove NGT
- No need to transfer patient to ICU given transition to comfort care measures.
Fuel Assembler/Pulmonary services will now sign off. Please call back if there are any additional questions or concerns.
Total time spent today was 40 minutes for this encounter. Time includes reviewing laboratory test/imaging results, reviewing pertinent medical records, obtaining and reviewing medical history, performing an appropriate exam, ordering medications,
tests and procedures. Time also includes documentation of this encounter, coordinating patient care and communicating with other healthcare professionals. Total time does not include separately billed tests performed on this date of service.
Data:
CT Abd/Pelvis 12/12/2023:
1. Pneumatosis, small bowel dilatation and portal venous gas in keeping with bowel ischemia and postoperative ileus, new from prior. No convincing evidence for perforation.
2. Small to moderate bilateral pleural effusions, new from prior.
3. Right middle and lower lobe pneumonia, new from prior and possibly aspiration related.
4. Questionable distal small bowel transition point within the low central abdomen (sagittal image 43), possibly due to internal hernia or adhesions. Finding may reflect distal small bowel obstruction which may represent a potential etiology for the
bowel ischemia. Colonic and terminal ileal loops appear markedly decompressed.
Transthoracic echocardiogram 12/07/2023:
Normal biventricular size and systolic function without regional wall motion
abnormality.
No significant valvular disease.
Trivial to small pericardial effusion without evidence of hemodynamic
significance.
Pleural effusion present.
No prior study available for comparison.
[2023-12-12] MEDS: MORPHINE SULFATE 2 MG IV (14:48)
--- NOTE | 2023-12-12 15:06 | RR ---
A Rapid Response was called on this patient, please see Rapid Response form.
--- NOTE | 2023-12-12 15:06 | PTCARENOTE ---
RR called at 1354 Pt unresponsive BP 60/50 with Nss at 500hr . Iv fluids open . Levo ordered. Bp responded and levo weaned down to 4, Pt on non rebreather. states no intubation and no CPR , pt had told he did not want that.Pt became very
restless and moaning in pain. asked that everything be done to keep pt comfortable and no pain. Pt given Morphine 2 mg Iv. Pt more comfortable . son at bedside awaiting pt daughters from [facility]. Pastoral care spoke with family .
--- NOTE | 2023-12-12 15:24 | W.PN.UPDATE ---
Update Note
Progress Note Update
Patient was seen and examined earlier in the day with JOVANI Freitas. This was around 10:30 AM. At that time, he had been transferred to the IMU for A-fib with RVR. He stated that he was having worsening abdominal pain as of this morning associated
with nausea and vomiting. He had put out 100 mL from his ostomy since 5am. On exam, his abdomen was soft, mildly distended, diffusely mildly to moderately tender with guarding, no rebound. As of 7:30 AM, when I had first reviewed his chart, we
had preemptively ordered a CT scan, held his Eliquis, and recommended switching to a heparin drip in case a procedure became necessary. After evaluating him, I recommended moving forward with a CT with p.o. and IV contrast to evaluate for any
abdominal pathology, especially related to the newly placed G-tube. I also recommended holding the heparin drip in case he needed an exploratory laparotomy. Cardiology had recommended IV amiodarone for the A-fib as he was also having associated
hypotension, but was not on any pressors.
I went in for a surgery. After finishing, I immediately got a phone call from Dr. Salas at about 2:15 PM stating that the patient had continued to decompensate with severe abdominal pain, AMS and hypotension requiring Levophed. I went
immediately to the IMU to assess the patient. In the IMU, I reviewed the CT scan, which was read as extensive small bowel pneumatosis. I called Dr. Franco with radiology to discuss possible etiologies for the diffuse small bowel ischemia. He
confirmed that he did not see any mesenteric thromboembolic events. He stated that this appeared to be more likely a issue with global ischemia/perfusion. He stated that the colon was extremely decompressed and difficult to visualize. I also
reviewed the case with Dr. Camarillo, who was not on duty, and he explained that there was no evidence of ischemic bowel during his surgeries and no other concerns regarding anatomic issues. I also discussed the situation with Dr. Salas regarding
the source of the ischemic bowel. As the colon didn't appear ischemic, the ischemia was in the SMA distribution. Possibilities include hypotension due to A-fib with RVR leading to ischemia to the bowel, hypotension due to another septic source, as
well as a thromboembolic event due to the A-fib, although this was not visualized on the CT scan.
I examined Mr. Odonnell at about 2:25pm and his was at the bedside. I explained to the that we are unsure what the inciting event was, but there is evidence of significant ischemia to his small bowel diffusely and he is in septic shock. I
explained that he would need an emergent exploratory laparotomy to evaluate the bowel, look for a possible etiology and remove any /unhealthy bowel. I explained the extremely elevated risks with general anesthesia in his current condition,
including, but not limited to, worsening hypotension exacerbating ischemia to the bowel and other organs, the possibility of discovering that the majority of the small bowel is (in which case, the surgery would be aborted as this is
incompatible with life), significant pain, prolonged hospitalization if he survives the surgery and the possibility of dying during the surgery. The alternatives include treating aggressively without surgery, including heparin drip, IV fluids and
IV antibiotics. Or, we could transition his care to comfort measures so that he is not in pain. However, if we did not treat aggressively, I explained that he would likely not survive. After this lengthy discussion, the indicated that she
does not want aggressive measures and would like to transition to comfort measures only. She wanted to thank Dr. Camarillo for his care. This discussion occurred with Zena Vyas, JOVANI and the nursing staff present.
--- NOTE | 2023-12-12 15:47 | PTCARENOTE ---
checked on patient to find that he had passed , no Heart sounds no rr pt was laying in a pool of brown fluids and a puddle on the floor. told pt passed and asked to leave room while we cleaned him . DR Solomon pronounced pt. now in room
awaiting daughters.
--- NOTE | 2023-12-12 15:49 | CHAP ---
Paged for Mk and family after RR was called. and son were present; the family has strong umu. Prayers offered, and emotional and spiritual support provided, along with a prayer blanket. Assurance given of our on-going availability.
--- NOTE | 2023-12-12 15:50 | W.PN.DEATH ---
Addendum entered and electronically signed by Clifford Solomon DO 12/13/23 17:31:
Time of 1520
Original Note:
Pronouncement of
-
Called to see patient to pronounce.
No spontaneous heart tones or respirations noted.
Patient not responsive to verbal stimuli.
Patient is pronounced .
Time of : 13:20
Date of : 12/12/23
Cause of : Mesenteric ischemia, atrial fibrillation, status-post sigmoidectomy for recurrent sigmoid volvulus
Family Notified: Yes
--- NOTE | 2023-12-12 16:05 | PTCARENOTE ---
[facility] called
--- NOTE | 2023-12-12 17:23 | PTCARENOTE ---
Daughters are her spending time with their father
--- NOTE | 2023-12-12 22:13 | PTCARENOTE ---
Patient received from previous RN. Pt on previous shift. Family was at bedside. [facility] informed by previous RN. Post mortem care preform by this RN and PCT, Please see post mortem care documentation. Pt taken down to morgue by this
RN.
== END 2023-12-12 15:20 | disposition expired | DRG 329 ==
LOC: IMU 22:01
PROVIDERS: Emergency Medicine; Internal Medicine; Nurse Practitioner Primary Care; Physician Assistant; Registered Nurse; Surgery; ADMITTING PHYSICIAN Internal Medicine; ATTENDING PHYSICIAN Hospitalist; EMERGENCY PHYSICIAN Emergency Medicine; FAMILY PHYSICIAN Family Medicine; OTHER PHYSICIAN Internal Medicine; OTHER PHYSICIAN Internal Medicine Critical Care Medicine; OTHER PHYSICIAN Otolaryngology Facial Plastic Surgery; OTHER PHYSICIAN Student in an Organized Health Care Education/Training Program; OTHER PHYSICIAN Surgery
PROC: 0D9P8ZZ Drainage of Rectum, Via Natural or Artificial Opening Endoscopic (ICD-10-PCS; 2023-12-03)
PROC: 0DQP0ZZ Repair Rectum, Open Approach (ICD-10-PCS; 2023-12-08)
PROC: 0DTN0ZZ Resection of Sigmoid Colon, Open Approach (ICD-10-PCS; 2023-12-08)
PROC: 0CJS8ZZ Inspection of Larynx, Via Natural or Artificial Opening Endoscopic (ICD-10-PCS; 2023-12-08)
PROC: 0D1M0Z4 Bypass Descending Colon to Cutaneous, Open Approach (ICD-10-PCS; 2023-12-08)
PROC: 0DH63UZ Insertion of Feeding Device into Stomach, Percutaneous Approach (ICD-10-PCS; 2023-12-09)
PROC: 3E0G76Z Introduction of Nutritional Substance into Upper GI, Via Natural or Artificial Opening (ICD-10-PCS; 2023-12-09)
DX: K56.2 Volvulus (principal); A41.9 Sepsis, unspecified organism; E43 Unspecified severe protein-calorie malnutrition; K63.1 Perforation of intestine (nontraumatic); J96.01 Acute respiratory failure with hypoxia; J69.0 Pneumonitis due to inhalation of food and vomit; R65.21 Severe sepsis with septic shock; K55.039 Acute (reversible) ischemia of large intestine, extent unspecified; Z68.1 Body mass index [BMI] 19.9 or less, adult; R64 Cachexia; I48.3 Typical atrial flutter; K55.9 Vascular disorder of intestine, unspecified; K91.89 Other postprocedural complications and disorders of digestive system; Z66 Do not resuscitate; Z51.5 Encounter for palliative care; Z79.82 Long term (current) use of aspirin; Z79.899 Other long term (current) drug therapy; Z86.73 Personal history of transient ischemic attack (TIA), and cerebral infarction without residual deficits; Y83.8 Other surgical procedures as the cause of abnormal reaction of the patient, or of later complication, without mention of misadventure at the time of the procedure; E78.00 Pure hypercholesterolemia, unspecified; H40.9 Unspecified glaucoma; H91.90 Unspecified hearing loss, unspecified ear; I10 Essential (primary) hypertension; D64.9 Anemia, unspecified; R13.19 Other dysphagia; E87.6 Hypokalemia; Z92.3 Personal history of irradiation; Z92.21 Personal history of antineoplastic chemotherapy; Z85.810 Personal history of malignant neoplasm of tongue; E83.39 Other disorders of phosphorus metabolism; K20.90 Esophagitis, unspecified without bleeding; K26.9 Duodenal ulcer, unspecified as acute or chronic, without hemorrhage or perforation; R07.9 Chest pain, unspecified; I48.0 Paroxysmal atrial fibrillation; I44.7 Left bundle-branch block, unspecified; I95.9 Hypotension, unspecified; R00.0 Tachycardia, unspecified; R40.4 Transient alteration of awareness
CPT/HCPCS: 88307; 36600; 71046; 74018; 74176; 74177; 74230; 80048; 80053; 81003; 81015; 82570; 82805; 82962; 83605; 83690; 83735; 84100; 84484; 85025; 85027; 85610; 85730; 92526; 92610; 92611; 93005; 93306; 96361; 96374; 96375; 96376; 97116; 97163; 97167; 97530; 97550; 99285; C1776; Q9967